=== PATIENT | female | born 1985 | race Hispanic/Latino ===

== ENCOUNTER 2018-06-18 11:08 | Emergency (ER) | payer OTHER ==
[~2018-06-18] VITALS: Ht 157.5 cm; Wt 93.4 kg
--- OUTSIDE RECORDS SUMMARY | 2018-06-18 11:12 | XMS REPORT | Summary of Care ---
Author Author [facility] Organization [facility] Address Unknown Phone Unavailable Encounter HQ Black_uche(FIN) [id number] Date(s): 10/12/17 - 10/12/17 [facility] [address] [place] [address]- Attending Physician: Clinton Redding MD Referring Physician: Clinton Redding MD Vital Signs No data available for this section Problem List No data available for this section Allergies, Adverse Reactions, Alerts Substance Reaction Severity Status NKDA Active Medications No data available for this section Results No data available for this section Immunizations No data available for this section Procedures Procedure Date Related Diagnosis Body Site Status section Completed Tubal ligation Completed Social History Social History Type Response Substance Abuse Use: None. Type: Marijuana. Recreational Drug Route: Inhaled. Sexual Sexually active: Yes. Alcohol Current, Type Beer, Wine, Liquor. Frequency: 1-2 times per week. Smoking Status Current every day smoker; Type: Cigarettes; Previous treatment: None; Ready to change: No; Concerns about tobacco use in household: No; Lives with someone who smokes; Cigarette Smoking Last 365 Days Yes; Reg Smoking Cessation Counseling No entered on: 12/05/17 Assessment and Plan No data available for this section
--- OUTSIDE RECORDS SUMMARY | 2018-06-18 11:12 | XMS REPORT | Summary of Care ---
Author Author [facility] Organization [facility] Address Unknown Phone Unavailable Encounter RAJWINDER Syed(HIGINIO) [id number] Date(s): 11/25/15 - 11/26/15 [facility] [address] [place] [address]- [phone] Discharge Diagnosis: Strain of mid-back Discharge Diagnosis: Hypertension Discharge Disposition: Home or Self Care Attending Physician: Moise Marsh MD Vital Signs Most recent to 1 2 oldest [Reference Range]: Height 154.94 cm (11/25/15 8:42 PM) Temperature Oral 98.0 DegF 99 DegF [96.4-99.1 DegF] (11/25/15 11:20 PM) (11/25/15 8:42 PM) Blood Pressure 129/79 mmHg 142/91 mmHg [90-140/60-90 mmHg] (11/25/15 11:20 PM) *HI* (11/25/15 8:42 PM) Respiratory Rate 18 BRMIN 20 BRMIN [14-20 BRMIN] (11/25/15 11:20 PM) (11/25/15 8:42 PM) Peripheral Pulse 90 bpm 117 bpm Rate [60-100 bpm] (11/25/15 11:20 PM) *HI* (11/25/15 8:42 PM) Weight 96.818 kg (11/25/15 8:42 PM) Body Mass Index 40.33 m2 (11/25/15 8:42 PM) Problem List No data available for this section Allergies, Adverse Reactions, Alerts Substance Reaction Severity Status NKDA Active Medications Flexeril 5 mg oral tablet 5 mg=1 tab, PO, TID, do not take while using etoh do not take while breast feed ing medication may make you feel dizzy, X 7 day, # 21 tab, 0 Refill(s) Start Date: 11/25/15 Stop Date: 12/02/15 Status: Ordered ketOROLAC 30 mg, 1 mL, Route: IM, Drug form: INJ, ONCE, Dosing Weight 96.818, kg, Priority : STAT, Start date: 11/25/15 21:42:00 CDT, Stop date: 11/25/15 21:42:00 CDT Notes: (Same as:Toradol) IV bolus must be given >15 seconds. Give IM administration slowly and deeply into the muscle.Not for use > 4 days MEDICATION WASTE Product Size: 30 mgProduct Wasted: ___ mg Start Date: 11/25/15 Stop Date: 11/25/15 Status: Completed Naprosyn 500 mg oral tablet 500 mg=1 tab, PO, BID, PRN Pain, do not take while breast feeding with food, X 7 day, # 14 tab, 0 Refill(s) Start Date: 11/25/15 Stop Date: 12/02/15 Status: Ordered tramadol 50 mg oral tablet 50 mg=1 tab, PO, Q6H, PRN Pain, take for breakthrough pain do not take while br east feeding do not mix with etoh medication may make you feel dizzy not to e xceed 400 mg/day, X 10 day, # 15 tab, 0 Refill(s) Start Date: 11/25/15 Stop Date: 12/05/15 Status: Ordered Tylenol 650 mg, 2 tab, Route: PO, Drug form: TAB, ONCE, Dosing Weight 96.818, kg, Priori ty: STAT, Start date: 11/25/15 21:43:00 CDT, Stop date: 11/25/15 21:43:00 CDT Notes: Do not exceed 4 gm/day. (Same as: Tylenol) Start Date: 11/25/15 Stop Date: 11/25/15 Status: Completed Valium 5 mg, 1 tab, Route: PO, Drug form: TAB, ONCE, Dosing Weight 96.818, kg, Priority : STAT, Start date: 11/25/15 21:42:00 CDT, Stop date: 11/25/15 21:42:00 CDT Notes: (Same as: Valium) Start Date: 11/25/15 Stop Date: 11/25/15 Status: Completed Results URINE CHEM Most recent to 1 oldest [Reference Range]: U Preg [Negative] Negative (11/25/15 10:05 PM) Immunizations No data available for this section Procedures Procedure Date Related Diagnosis Body Site Tubal ligation Social History Social History Type Response Smoking Status Never smoker; Previous treatment: None; Ready to change: No; Concerns about tobacco use in household: No; Exposure to Tobacco Smoke None; Cigarette Smoking Last 365 Days No; Reg Smoking Cessation Counseling No Assessment and Plan No data available for this section
--- OUTSIDE RECORDS SUMMARY | 2018-06-18 11:12 | XMS REPORT | Summary of Care ---
Author Author [facility] Organization [facility] Address Unknown Phone Unavailable Encounter HQ Yahaira(HIGINIO) [id number] Date(s): 12/05/16 - 12/05/16 [facility] [address] [place] [address]- [phone] Discharge Diagnosis: Hemorrhagic ovarian cyst Discharge Disposition: Home or Self Care Attending Physician: Flaquito Alvarez MD Vital Signs 1 2 3 Most recent to oldest [Reference Range]: 154.94 cm (12/05/16 11:02 AM) Height 98.1 DegF (12/05/16 11:02 AM) Temperature Oral [96.4-99.1 DegF] 133/78 mmHg (12/05/16 2:20 PM) 129/79 mmHg (12/05/16 11:02 AM) Blood Pressure [90-140/60-90 mmHg] 18 BRMIN (12/05/16 2:20 PM) 18 BRMIN (12/05/16 1:54 PM) 16 BRMIN (12/05/16 11:02 AM) Respiratory Rate [14-20 BRMIN] 85 bpm (12/05/16 2:20 PM) 58 bpm *LOW* (12/05/16 11:02 AM) Peripheral Pulse Rate [60-100 bpm] 94.091 kg (12/05/16 11:02 AM) Weight 39.19 m2 (12/05/16 11:02 AM) Body Mass Index Problem List No data available for this section Allergies, Adverse Reactions, Alerts Substance Reaction Severity Status NKDA Active Medications Anaprox-DS 550 mg oral tablet 550 mg=1 tab, PO, BID, PRN for pain, X 10 day, # 20 tab, 0 Refill(s) Start Date: 12/05/16 Stop Date: 12/15/16 Status: Ordered ketOROLAC 30 mg, 1 mL, Route: IVP, Drug form: INJ, ONCE, Dosing Weight 94.091, kg, Priorit y: STAT, Start date: 12/05/16 12:12:00 CDT, Stop date: 12/05/16 12:12:00 CDT Notes: (Same as:Toradol) IV bolus must be given >15 seconds. Give IM administration slowly and deeply into the muscle.Not for use > 4 days MEDICATION WASTE Product Size: 30 mgProduct Wasted: ___ mg Start Date: 12/05/16 Stop Date: 12/05/16 Status: Completed Saline Flush 0.9% 10 mL, Route: IVP, Drug Form: INJ, Dosing Weight 94.091, kg, PRN, PRN Line Flush , Start date: 12/05/16 11:22:00 CDT, Duration: 30 day, Stop date: 01/04/17 10:21 :00 COMMISSIONING ENGINEER Notes: (Same as: BD Posiflush) Start Date: 12/05/16 Stop Date: 12/05/16 Status: Discontinued Results ELECTROLYTES Most recent to 1 oldest [Reference Range]: Sodium Lvl [135-145 137 mEq/L mEq/L] (12/05/16 11:48 AM) Potassium Lvl 4.1 mEq/L [3.5-5.1 mEq/L] (12/05/16 11:48 AM) Chloride Lvl [95-109 105 mEq/L mEq/L] (12/05/16 11:48 AM) CO2 [24-32 mEq/L] 28 mEq/L (12/05/16 11:48 AM) AGAP [10.0-20.0 8.1 mEq/L mEq/L] *LOW* (12/05/16 11:48 AM) CHEM PANEL Most recent to 1 oldest [Reference Range]: Creatinine Lvl 0.57 mg/dL [0.50-1.40 mg/dL] (12/05/16 11:48 AM) eGFR 124 mL/min/1.73m2 1 *NA* (12/05/16 11:48 AM) BUN [7-22 mg/dL] 8 mg/dL (12/05/16 11:48 AM) B/C Ratio [6-25] 14 (12/05/16 11:48 AM) Glucose Lvl [70-99 93 mg/dL mg/dL] (12/05/16 11:48 AM) Total Protein 7.2 g/dL [6.4-8.4 g/dL] (12/05/16 11:48 AM) Albumin Lvl [3.5-5.0 3.6 g/dL g/dL] (12/05/16 1148 AM) Globulin [2.7-4.2 3.6 g/dL g/dL] (12/05/1648 AM) A/G Ratio [0.7-1.6] 1.0 (12/05/16:48 AM) Calcium Lvl 8.5 mg/dL [8.5-10.5 mg/dL] (12/05/16:48 AM) ALT [0-65 unit/L] 23 unit/L (12/05/1648 AM) AST [0-37 unit/L] 10 unit/L (12/05/16:48 AM) Alk Phos [39-136 57 unit/L unit/L] (12/05/1648 AM) Bili Total [0.2-1.3 0.6 mg/dL mg/dL] (12/05/16 11:48 AM) Lipase Lvl [73-393 103 unit/L unit/L] (12/05/16 11:48 AM) 1Result Comment: The eGFR is calculated using the CKD-EPI formula. In most young, healthy individuals the eGFR will be >90 mL/min/1.73m2. The eGFR declines with age. An eGFR of 60-89 may be normal in some populations, particularly the elderly, for whom the CKD-EPI formula has not been extensively validated. Use of the eGFR is not recommended in the following populations: Individuals with unstable creatinine concentrations, including patients and those with serious co-morbid conditions. Patients with extremes in muscle mass or diet. The data above are obtained from the National Kidney Disease Education Program ( NKDEP) which additionally recommends that when the eGFR is used in patients with extremes of body mass index for purposes of drug dosing, the eGFR should be mul tiplied by the estimated BMI. URINE CHEM Most recent to 1 oldest [Reference Range]: U Preg [Negative] Negative (12/05/16 11:48 AM) URINE AND STOOL Most recent to 1 oldest [Reference Range]: UA Turbidity [Clear] Clear (12/05/16 11:48 AM) UA Color [Yellow] Yellow *NA* (12/05/16 11:48 AM) UA pH [5.0-8.0] 6.0 (12/05/16 11:48 AM) UA Spec Grav 1.025 [<=1.030] (12/05/16 11:48 AM) UA Glucose Negative [Negative] (12/05/16 11:48 AM) UA Blood [Negative] Small *ABN* (12/05/16 11:48 AM) UA Ketones Negative [Negative] *NA* (12/05/16 11:48 AM) UA Protein Negative [Negative] (12/05/16 11:48 AM) UA Urobilinogen 0.2 EU/dL [0.1-1.0 EU/dL] (12/05/16 11:48 AM) UA Bili [Negative] Negative *NA* (12/05/16 11:48 AM) UA Leuk Est Negative [Negative] (12/05/16 11:48 AM) UA Nitrite Negative [Negative] (12/05/16 11:48 AM) UA WBC [None Seen 0-2 /HPF /HPF] (12/05/16 11:48 AM) UA RBC [0-2 /HPF] 3-5 /HPF *ABN* (12/05/16 11:48 AM) UA Bacteria Rare *NA* (12/05/16 11:48 AM) UA Sq Epi [Few /LPF] Few /LPF (12/05/16 11:48 AM) HEMATOLOGY Most recent to 1 oldest [Reference Range]: WBC [3.7-10.4 K/CMM] 11.1 K/CMM *HI* (12/05/16 11:48 AM) RBC [4.20-5.40 4.23 M/CMM M/CMM] (12/05/16 11:48 AM) Hgb [12.0-16.0 g/dL] 13.1 g/dL (12/05/16 11:48 AM) Hct [36.0-48.0 %] 38.3 % (12/05/16 11:48 AM) MCV [80.0-98.0 fL] 90.6 fL (12/05/16 11:48 AM) MCH [27.0-31.0 pg] 31.0 pg (12/05/16 11:48 AM) MCHC [32.0-36.0 34.3 g/dL g/dL] (12/05/16 11:48 AM) RDW [11.5-14.5 %] 13.6 % (12/05/16 11:48 AM) Platelet [133-450 354 K/CMM K/CMM] (12/05/16 11:48 AM) MPV [7.4-10.4 fL] 7.2 fL *LOW* (12/05/16 11:48 AM) Segs [45.0-75.0 %] 68.5 % (12/05/16 11:48 AM) Lymphocytes 23.3 % [20.0-40.0 %] (12/05/16 11:48 AM) Monocytes [2.0-12.0 5.8 % %] (12/05/16 11:48 AM) Eosinophils [0.0-4.0 2.1 % %] (12/05/16 11:48 AM) Basophils [0.0-1.0 0.3 % %] (12/05/16 11:48 AM) Segs-Bands # 7.6 K/CMM [1.5-8.1 K/CMM] (12/05/16 11:48 AM) Lymphocytes # 2.6 K/CMM [1.0-5.5 K/CMM] (12/05/16 11:48 AM) Monocytes # [0.0-0.8 0.6 K/CMM K/CMM] (12/05/16 11:48 AM) Eosinophils # 0.2 K/CMM [0.0-0.5 K/CMM] (12/05/16 11:48 AM) Immunizations No data available for this section [...]
--- OUTSIDE RECORDS SUMMARY | 2018-06-18 11:12 | XMS REPORT | Summary of Care ---
Author Author [facility] Organization [facility] Address Unknown Phone Unavailable Encounter HQ Adrianr_uche(FIN) [id number] Date(s): 05/30/17 - 05/30/17 [facility] [address] [place] [address]- [facility] [phone] Encounter Diagnosis Food poisoning (Discharge Diagnosis) - 05/30/17 Abdominal pain, acute (Discharge Diagnosis) - 05/30/17 Discharge Disposition: Home or Self Care Attending Physician: Carlos Rice MD Vital Signs 1 2 3 Most recent to oldest [Reference Range]: 154.94 cm (05/30/17 8:46 AM) Height 98.8 DegF (05/30/17 11:12 AM) 99.5 DegF *HI* (05/30/17 8:46 AM) Temperature Oral [96.4-99.1 DegF] 122/78 mmHg (05/30/17 11:12 AM) 118/71 mmHg (05/30/17 9:40 AM) 116/82 mmHg (05/30/17 8:46 AM) Blood Pressure [90-140/60-90 mmHg] 18 BRMIN (05/30/17 11:12 AM) 18 BRMIN (05/30/17 9:40 AM) 16 BRMIN (05/30/17 8:46 AM) Respiratory Rate [14-20 BRMIN] 92 bpm (05/30/17 11:12 AM) 102 bpm *HI* (05/30/17 9:40 AM) 107 bpm *HI* (05/30/17 8:46 AM) Peripheral Pulse Rate [60-100 bpm] 91.364 kg (05/30/17 8:46 AM) Weight 38.06 m2 (05/30/17 8:46 AM) Body Mass Index Problem List No data available for this section Allergies, Adverse Reactions, Alerts Substance Reaction Severity Status NKDA Active Medications Cipro 500 mg oral tablet 500 mg=1 tab, PO, Q12H, X 10 day, # 20 tab, 0 Refill(s) Start Date: 05/30/17 Stop Date: 06/09/17 Status: Ordered Flagyl 500 mg oral tablet 500 mg=1 tab, PO, Q8H, X 10 day, # 30 tab, 0 Refill(s) Start Date: 05/30/17 Stop Date: 06/09/17 Status: Ordered ketOROLAC 30 mg, 1 mL, Route: IVP, Drug form: INJ, ONCE, Dosing Weight 91.364, kg, Priorit y: STAT, Start date: 05/30/17 8:57:00 CDT, Stop date: 05/30/17 8:57:00 CDT Notes: (Same as:Toradol) IV bolus must be given >15 seconds. Give IM administration slowly and deeply into the muscle.Not for use > 4 days MEDICATION WASTE Product Size: 30 mgProduct Wasted: ___ mg Start Date: 05/30/17 Stop Date: 05/30/17 Status: Completed ondansetron 4 mg, 2 mL, Route: IVP, Drug form: INJ, ONCE, Dosing Weight 91.364, kg, Priority : STAT, Start date: 05/30/17 8:57:00 CDT, Stop date: 05/30/17 8:57:00 CDT Notes: (Same as: Zofran) MEDICATION WASTE Product Size: 4 mgProduct Was yonas: ___ mg Start Date: 05/30/17 Stop Date: 05/30/17 Status: Completed Phenergan 25 mg oral tablet 25 mg=1 tab, PO, Q6H, PRN Nausea, # 15 tab, 0 Refill(s) Start Date: 05/30/17 Stop Date: 06/03/17 Status: Ordered Reglan 5 mg, Route: IVP, Drug form: INJ, ONCE, Dosing Weight 91.364, kg, Priority: STAT , Start date: 05/30/17 10:22:00 CDT, Stop date: 05/30/17 10:22:00 CDT Start Date: 05/30/17 Stop Date: 05/30/17 Status: Completed Sodium Chloride 0.9% (Bolus) IV 1,000 mL, 1000 ml/hr, Infuse Over: 1 hr, Route: IV, 1,000, Drug form: INJ, ONCE, Priority: STAT, Dosing Weight 91.364 kg, Start date: 05/30/17 8:57:00 CDT, Stop date: 05/30/17 8:57:00 CDT Start Date: 05/30/17 Stop Date: 05/30/17 Status: Completed Results ELECTROLYTES Most recent to 1 oldest [Reference Range]: Sodium Lvl [135-145 140 mEq/L mEq/L] (05/30/17 9:13 AM) Potassium Lvl 3.7 mEq/L [3.5-5.1 mEq/L] (05/30/17 9:13 AM) Chloride Lvl [95-109 108 mEq/L mEq/L] (05/30/17 9:13 AM) CO2 [24-32 mEq/L] 25 mEq/L (05/30/17 9:13 AM) AGAP [10.0-20.0 10.7 mEq/L mEq/L] (05/30/17 9:13 AM) CHEM PANEL Most recent to 1 oldest [Reference Range]: Creatinine Lvl 0.70 mg/dL [0.50-1.40 mg/dL] (05/30/17 9:13 AM) eGFR 116 mL/min/1.73m2 1 *NA* (05/30/17 9:13 AM) BUN [7-22 mg/dL] 8 mg/dL (05/30/17 9:13 AM) B/C Ratio [6-25] 11 (05/30/17 9:13 AM) Glucose Lvl [70-99 90 mg/dL mg/dL] (05/30/17 9:13 AM) Total Protein 6.8 g/dL [6.4-8.4 g/dL] (05/30/17 9:13 AM) Albumin Lvl [3.5-5.0 3.4 g/dL g/dL] *LOW* (05/30/17 9:13 AM) Globulin [2.7-4.2 3.4 g/dL g/dL] (05/30/17 9:13 AM) A/G Ratio [0.7-1.6] 1.0 (05/30/17 9:13 AM) Calcium Lvl 7.7 mg/dL [8.5-10.5 mg/dL] *LOW* (05/30/17 9:13 AM) ALT [0-65 unit/L] 16 unit/L (05/30/17 9:13 AM) AST [0-37 unit/L] 8 unit/L (05/30/17 9:13 AM) Alk Phos [39-136 55 unit/L unit/L] (05/30/17 9:13 AM) Bili Total [0.2-1.3 0.6 mg/dL mg/dL] (05/30/17 9:13 AM) Lipase Lvl [73-393 72 unit/L unit/L] *LOW* (05/30/17 9:13 AM) 1Result Comment: The eGFR is calculated [...] be mul tiplied by the estimated BMI. ENDOCRINOLOGY Most recent to 1 oldest [Reference Range]: hCG Tot <1 mIU/mL *NA* (05/30/17 9:13 AM) URINE AND STOOL Most recent to 1 oldest [Reference Range]: UA Turbidity [Clear] Marked *ABN* (05/30/17 9:13 AM) UA Color [Yellow] Yellow *NA* (05/30/17 9:13 AM) UA pH [5.0-8.0] 5.0 (05/30/17 9:13 AM) UA Spec Grav 1.019 [<=1.030] (05/30/17 9:13 AM) UA Glucose [Negative Negative mg/dL mg/dL] *NA* (05/30/17 9:13 AM) UA Blood [Negative] Small *ABN* (05/30/17 9:13 AM) UA Ketones [Negative Negative mg/dL mg/dL] *NA* (05/30/17 9:13 AM) UA Protein [Negative Negative mg/dL mg/dL] (05/30/17 9:13 AM) UA Urobilinogen 2.0 mg/dL [0.1-1.0 mg/dL] *HI* (05/30/17 9:13 AM) UA Bili [Negative] Negative *NA* (05/30/17 9:13 AM) UA Leuk Est Negative [Negative] (05/30/17 9:13 AM) UA Nitrite Negative [Negative] (05/30/17 9:13 AM) UA WBC [0-5 /HPF] 6 /HPF *HI* (05/30/17 9:13 AM) UA RBC [0-2 /HPF] 7 /HPF *HI* (05/30/17 9:13 AM) UA Bacteria [None Occasional /HPF Seen /HPF] *NA* (05/30/17 9:13 AM) UA Sq Epi [Few /LPF] Many /LPF *ABN* (05/30/17 9:13 AM) UA Mucus [None Seen Many /LPF /LPF] *ABN* (05/30/17 9:13 AM) HEMATOLOGY Most recent to 1 oldest [Reference Range]: WBC [3.7-10.4 K/CMM] 8.2 K/CMM (05/30/17 9:13 AM) RBC [4.20-5.40 4.30 M/CMM M/CMM] (05/30/17 9:13 AM) Hgb [12.0-16.0 g/dL] 13.3 g/dL (05/30/17 9:13 AM) Hct [36.0-48.0 %] 38.4 % (05/30/17 9:13 AM) MCV [80.0-98.0 fL] 89.4 fL (05/30/17 9:13 AM) MCH [27.0-31.0 pg] 30.9 pg (05/30/17 9:13 AM) MCHC [32.0-36.0 34.6 g/dL g/dL] (05/30/17 9:13 AM) RDW [11.5-14.5 %] 13.8 % (05/30/17 9:13 AM) MPV [7.4-10.4 fL] 7.0 fL *LOW* (05/30/17 9:13 AM) Platelet [133-450 322 K/CMM K/CMM] (05/30/17 9:13 AM) Segs [45.0-75.0 %] 86.1 % *HI* (05/30/17 9:13 AM) Lymphocytes 8.2 % [20.0-40.0 %] *LOW* (05/30/17 9:13 AM) Monocytes [2.0-12.0 4.8 % %] (05/30/17 9:13 AM) Eosinophils [0.0-4.0 0.7 % %] (05/30/17 9:13 AM) Basophils [0.0-1.0 0.2 % %] (05/30/17 9:13 AM) Segs-Bands # 7.0 K/CMM [1.5-8.1 K/CMM] (05/30/17 9:13 AM) Lymphocytes # 0.7 K/CMM [1.0-5.5 K/CMM] *LOW* (05/30/17 9:13 AM) Monocytes # [0.0-0.8 0.4 K/CMM K/CMM] (05/30/17 9:13 AM) Eosinophils # 0.1 K/CMM [0.0-0.5 K/CMM] (05/30/17 9:13 AM) Immunizations No data available for this section Procedures Procedure Date Related Diagnosis Body Site Status Tubal ligation Completed Social History Social History Type Response Smoking Status Never smoker; Previous treatment: None; Ready to change: No; Concerns about tobacco use in household: No; Exposure to Tobacco Smoke None; Cigarette Smoking Last 365 Days No; Reg Smoking Cessation Counseling No entered on: 05/30/17 Assessment and Plan No data available for this section
--- OUTSIDE RECORDS SUMMARY | 2018-06-18 11:12 | XMS REPORT ---
Author Author Sara Arellano Organization [employer] Address Unknown Phone Unavailable Care Team Providers Care [place] Setter Name Role Phone Sara Arellano CP Unavailable Allergies, Adverse Reactions, Alerts Substance Reaction Event Type N.K.D.A. Info Not Available Non Drug Allergy Problems Problem Type Condition Code Onset Dates Condition Status Problem Obesity, morbid, BMI 40.0-49.9 E66.01 Active Assessment Annual physical exam Z00.00 Active Problem BMI 40.0-44.9, adult Z68.41 Active Assessment BMI 40.0-44.9, adult Z68.41 Active Assessment Obesity, morbid, BMI 40.0-49.9 E66.01 Active Medications No Known Medications Vital Signs Date/Time: August 05, 2017 BMI 40.85 Index Weight 216.2 lbs Height 61 in Temperature 97.2 F Cardiac Monitoring Heart Rate 80 /min Blood Pressure Diastolic 77 mm Hg Blood Pressure Systolic 115 mm Hg Results No Known Results Summary Purpose [employer] Submission
--- OUTSIDE RECORDS SUMMARY | 2018-06-18 11:12 | XMS REPORT | Summary of Care ---
Author Author [facility] Organization [facility] Address Unknown Phone Unavailable Encounter HQ Yahaira(HIGINIO) [id number] Date(s): 08/29/17 - 08/29/17 [facility] [address] [place] [address]- Encounter Diagnosis Vomiting and diarrhea (Discharge Diagnosis) - 08/29/17 Abdominal pain (Discharge Diagnosis) - 08/29/17 Unspecified abdominal pain (Final) - 09/03/17 Diarrhea, unspecified (Final) - Nausea with vomiting, unspecified (Final) - Discharge Disposition: Home or Self Care Attending Physician: Jose E Herbert MD Vital Signs 1 2 3 Most recent to oldest [Reference Range]: 154.94 cm (08/29/17 6:19 PM) Height 98.0 DegF (08/29/17 10:46 PM) 98.6 DegF (08/29/17 6:19 PM) Temperature Oral [96.4-99.1 DegF] 116/76 mmHg (08/29/17 10:46 PM) 124/81 mmHg (08/29/17 8:20 PM) 124/77 mmHg (08/29/17 8:18 PM) Blood Pressure [90-140/60-90 mmHg] 18 BRMIN (08/29/17 10:46 PM) 18 BRMIN (08/29/17 6:19 PM) Respiratory Rate [14-20 BRMIN] 61 bpm (08/29/17 10:46 PM) 69 bpm (08/29/17 8:20 PM) 62 bpm (08/29/17 8:18 PM) Peripheral Pulse Rate [60-100 bpm] 93.636 kg (08/29/17 6:19 PM) Weight 39 m2 (08/29/17 6:19 PM) Body Mass Index Problem List No data available for this section Allergies, Adverse Reactions, Alerts Substance Reaction Severity Status NKDA Active Medications Cipro 500 mg oral tablet 500 mg=1 tab, PO, Q12H, X 5 day, # 10 tab, 0 Refill(s) Start Date: 08/29/17 Stop Date: 09/03/17 Status: Completed Flagyl 500 mg oral tablet 500 mg=1 tab, PO, Q8H, X 5 day, # 15 tab, 0 Refill(s) Start Date: 08/29/17 Stop Date: 09/03/17 Status: Completed potassium chloride 40 mEq, 2 tab, Route: PO, Drug form: ERTAB, ONCE, Dosing Weight 93.636, kg, Prio rity: STAT, Start date: 08/29/17 19:46:00 CDT, Stop date: 08/29/17 19:46:00 CDT Notes: (Same as: K-Dur 20)"Do Not Crush"For patients unable to swallow tablet, d issolve in one half glass of water. Allow about 2 minutes for the tablets to dis integrate. Stir before giving to prepare slurry and administer.Please exclude Pa tients with feeding tube less than 14 [place] (Dobhoff, J-tube etc) and pediat aston and patients. With food and full glass of water Start Date: 08/29/17 Stop Date: 08/29/17 Status: Completed promethazine 12.5 mg, Route: IVPB, ONCE, Dosing Weight 93.636, kg, Priority: STAT, Start date : 08/29/17 19:27:00 CDT, Stop date: 08/29/17 19:27:00 CDT Start Date: 08/29/17 Stop Date: 08/29/17 Status: Completed promethazine 25 mg oral tablet 25 mg=1 tab, PO, Q6H, PRN Nausea/Vomiting, # 12 tab, 0 Refill(s) Start Date: 08/29/17 Stop Date: 09/01/17 Status: Ordered Saline Flush 0.9% 10 mL, Route: IVP, Drug Form: INJ, Dosing Weight 91.364, kg, PRN, PRN Line Flush , Start date: 08/29/17 18:20:00 CDT, Duration: 30 day, Stop date: 09/28/17 18:19 :00 CDT Notes: (Same as: BD Posiflush) Start Date: 08/29/17 Stop Date: 08/29/17 Status: Discontinued Sodium Chloride 0.9% (Bolus) IV 1,000 mL, 1000 ml/hr, Infuse Over: 1 hr, Route: IV, 1,000, Drug form: INJ, ONCE, Priority: STAT, Dosing Weight 93.636 kg, Start date: 08/29/17 19:27:00 CDT, Stop date: 08/29/17 19:27:00 CDT Start Date: 08/29/17 Stop Date: 08/29/17 Status: Completed Sodium Chloride 0.9% (Bolus) IV 1,000 mL, Infuse Over: 1 hr, Route: IV, ONCE, Priority: STAT, Dosing Weight 93.6 36 kg, Start date: 08/29/17 19:27:00 CDT, Stop date: 08/29/17 19:27:00 CDT Start Date: 08/29/17 Stop Date: 08/29/17 Status: Completed Results ELECTROLYTES Most recent to 1 oldest [Reference Range]: Sodium Lvl [135-145 143 mEq/L mEq/L] (08/29/17 6:32 PM) Potassium Lvl 3.1 mEq/L [3.5-5.1 mEq/L] *LOW* (08/29/17 6:32 PM) Chloride Lvl [95-109 108 mEq/L mEq/L] (08/29/17 6:32 PM) CO2 [24-32 mEq/L] 24 mEq/L (08/29/17 6:32 PM) AGAP [10.0-20.0 14.1 mEq/L mEq/L] (08/29/17 6:32 PM) CHEM PANEL Most recent to 1 oldest [Reference Range]: Creatinine Lvl 0.78 mg/dL [0.50-1.40 mg/dL] (08/29/17 6:32 PM) eGFR 101 mL/min/1.73m2 1 *NA* (08/29/17 6:32 PM) BUN [7-22 mg/dL] 7 mg/dL (08/29/17 6:32 PM) Glucose Lvl [70-99 97 mg/dL mg/dL] (08/29/17 6:32 PM) Total Protein 7.1 g/dL [6.4-8.4 g/dL] (08/29/17 6:32 PM) Albumin Lvl [3.5-5.0 3.5 g/dL g/dL] (08/29/17 6:32 PM) Globulin [2.7-4.2 3.6 g/dL g/dL] (08/29/17 6:32 PM) A/G Ratio [0.7-1.6] 1.0 (08/29/17 6:32 PM) Calcium Lvl 8.2 mg/dL [8.5-10.5 mg/dL] *LOW* (08/29/17 6:32 PM) ALT [0-65 unit/L] 79 unit/L *HI* (08/29/17 6:32 PM) AST [0-37 unit/L] 38 unit/L *HI* (08/29/17 6:32 PM) Alk Phos [39-136 65 unit/L unit/L] (08/29/17 6:32 PM) Bili Total [0.2-1.3 0.4 mg/dL mg/dL] (08/29/17 6:32 PM) Bili Direct [0.0-0.3 0.1 mg/dL mg/dL] (08/29/17 6:32 PM) Bili Indirect 0.3 mg/dL [0.0-1.0 mg/dL] (08/29/17 6:32 PM) Lipase Lvl [73-393 129 unit/L unit/L] (08/29/17 6:32 PM) 1Result Comment: The eGFR is calculated using [...] [Reference Range]: hCG Tot <1 mIU/mL *NA* (08/29/17 6:32 PM) URINE AND STOOL Most recent to 1 oldest [Reference Range]: UA Turbidity [Clear] Clear (08/29/17 6:45 PM) UA Color [Yellow] Yellow *NA* (08/29/17 6:45 PM) UA pH [5.0-8.0] 6.0 (08/29/17 6:45 PM) UA Spec Grav 1.025 [<=1.030] (08/29/17 6:45 PM) UA Glucose Negative [Negative] (08/29/17 6:45 PM) UA Blood [Negative] Large *ABN* (08/29/17 6:45 PM) UA Ketones Trace [Negative] *ABN* (08/29/17 6:45 PM) UA Protein [Negative 30 mg/dL mg/dL] *ABN* (08/29/17 6:45 PM) UA Urobilinogen 1.0 EU/dL [0.1-1.0 EU/dL] (08/29/17 6:45 PM) UA Bili [Negative] Small *ABN* (08/29/17 6:45 PM) UA Leuk Est Negative [Negative] (08/29/17 6:45 PM) UA Nitrite Negative [Negative] (08/29/17 6:45 PM) UA WBC [0-5 /HPF] 0-2 /HPF (08/29/17 6:45 PM) UA RBC [0-2 /HPF] 3-5 /HPF *ABN* (08/29/17 6:45 PM) UA Bacteria [None Few /HPF Seen /HPF] (08/29/17 6:45 PM) UA Sq Epi [Few /LPF] Few /LPF (08/29/17 6:45 PM) UA [place] Yeast [None Occasional /HPF Seen /HPF] *ABN* (08/29/17 6:45 PM) HEMATOLOGY Most recent to 1 oldest [Reference Range]: WBC [3.7-10.4 K/CMM] 12.1 K/CMM *HI* (08/29/17 6:32 PM) RBC [4.20-5.40 4.33 M/CMM M/CMM] (08/29/17 6:32 PM) Hgb [12.0-16.0 g/dL] 13.4 g/dL (08/29/17 6:32 PM) Hct [36.0-48.0 %] 38.3 % (08/29/17 6:32 PM) MCV [80.0-98.0 fL] 88.5 fL (08/29/17 6:32 PM) MCH [27.0-31.0 pg] 30.9 pg (08/29/17 6:32 PM) MCHC [32.0-36.0 34.9 g/dL g/dL] (08/29/17 6:32 PM) RDW [11.5-14.5 %] 13.8 % (08/29/17 6:32 PM) MPV [7.4-10.4 fL] 6.8 fL *LOW* (08/29/17 6:32 PM) Platelet [133-450 390 K/CMM K/CMM] (08/29/17 6:32 PM) Segs [45.0-75.0 %] 64.2 % (08/29/17 6:32 PM) Lymphocytes 26.0 % [20.0-40.0 %] (08/29/17 6:32 PM) Monocytes [2.0-12.0 8.2 % %] (08/29/17 6:32 PM) Eosinophils [0.0-4.0 1.2 % %] (08/29/17 6:32 PM) Basophils [0.0-1.0 0.4 % %] (08/29/17 6:32 PM) Neutrophils # 7.8 K/CMM [1.5-8.1 K/CMM] (08/29/17 6:32 PM) Lymphocytes # 3.2 K/CMM [1.0-5.5 K/CMM] (08/29/17 6:32 PM) Monocytes # [0.0-0.8 1.0 K/CMM K/CMM] *HI* (08/29/17 6:32 PM) Eosinophils # 0.1 K/CMM [0.0-0.5 K/CMM] (08/29/17 6:32 PM) Basophils # [0.0-0.2 0.1 K/CMM K/CMM] (08/29/17 6:32 PM) Immunizations No data available for this [...]
--- OUTSIDE RECORDS SUMMARY | 2018-06-18 11:12 | XMS REPORT ---
Author Author Sara Arellano Organization [employer] Address Unknown Phone Unavailable Care Team Providers Care Service Tester Name Role Phone Sara Arellano CP Unavailable Allergies No Known Allergies Problems Problem Type Condition Code Onset Dates Condition Status Problem Obesity, morbid, BMI 40.0-49.9 E66.01 Active Problem BMI 40.0-44.9, adult Z68.41 Active Medications Medication Code System Code Instructions Start Date End Date Status Dosage Ergocalciferol [facility] [id number] UNIT Orally once a week August 07, 2017 September 06, 2017 Active 1 capsule Results No Known Results Summary Purpose [employer] Submission
--- OUTSIDE RECORDS SUMMARY | 2018-06-18 11:12 | XMS REPORT | Summary of Care ---
Author Author [facility] Organization [facility] Address Unknown Phone Unavailable Encounter HQ Yahaira(FIN) [id number] Date(s): 09/02/17 - 09/02/17 [facility] [address] [place] [address]- [facility] [phone] Encounter Diagnosis Chronic diarrhea (Discharge Diagnosis) - 09/02/17 Noninfective gastroenteritis and colitis, unspecified (Final) - 09/05/17 Discharge Disposition: Home or Self Care Attending Physician: Richard Rodriguez MD Vital Signs 1 2 3 Most recent to oldest [Reference Range]: 154.94 cm (09/02/17 7:05 AM) Height 98.4 DegF (09/02/17 11:21 AM) 99.1 DegF (09/02/17 8:18 AM) 97.9 DegF (09/02/17 7:05 AM) Temperature Oral [96.4-99.1 DegF] 114/80 mmHg (09/02/17 11:21 AM) 126/82 mmHg (09/02/17 8:18 AM) 136/85 mmHg (09/02/17 7:05 AM) Blood Pressure [90-140/60-90 mmHg] 17 BRMIN (09/02/17 11:21 AM) 16 BRMIN (09/02/17 8:18 AM) 18 BRMIN (09/02/17 7:05 AM) Respiratory Rate [14-20 BRMIN] 62 bpm (09/02/17 11:21 AM) 60 bpm (09/02/17 8:18 AM) 65 bpm (09/02/17 7:05 AM) Peripheral Pulse Rate [60-100 bpm] 94.545 kg (09/02/17 7:05 AM) Weight 39.38 m2 (09/02/17 7:05 AM) Body Mass Index Problem List No data available for this section Allergies, Adverse Reactions, Alerts Substance Reaction Severity Status NKDA Active Medications acetaminophen-tramadol 325 mg-37.5 mg oral tablet 2 tab, PO, Q6H, PRN Pain, X 7 day, # 24 tab, 0 Refill(s) Start Date: 09/02/17 Stop Date: 09/09/17 Status: Completed Bentyl 20 mg, 2 mL, Route: IM, Drug form: INJ, ONCE, Dosing Weight 94.545, kg, Start da te: 09/02/17 7:15:00 CDT, Stop date: 09/02/17 7:15:00 CDT Notes: (Same as: Bentyl) Start Date: 09/02/17 Stop Date: 09/02/17 Status: Completed Bentyl 20 mg oral tablet 20 mg=1 tab, PO, QID-Before Meals, # 40 tab, 0 Refill(s) Start Date: 09/02/17 Stop Date: 09/12/17 Status: Ordered dexamethasone 10 mg, 1 mL, Route: IVP, Drug form: INJ, ONCE, Dosing Weight 94.545, kg, Priorit y: STAT, Start date: 09/02/17 9:20:00 CDT, Stop date: 09/02/17 9:20:00 CDT Notes: MEDICATION WASTE Product Size: 10 mgProduct Wasted: ___ mg Start Date: 09/02/17 Stop Date: 09/02/17 Status: Completed famotidine 40 mg, 4 mL, Route: IVP, Drug form: INJ, ONCE, Dosing Weight 94.545, kg, Priorit y: STAT, Start date: 09/02/17 7:29:00 CDT, Stop date: 09/02/17 7:29:00 CDT Notes: (Same as: Pepcid)Can be dilute in 5-10cc NS IVP: Slow IV push over at le ast 2 minutes. Start Date: 09/02/17 Stop Date: 09/02/17 Status: Completed GI cocktail 30 mL, Route: PO, Dosing Weight 94.545, kg, ONCE, STAT, Start date: 09/02/17 10: 08:00 CDT, Stop date: 09/02/17 10:08:00 CDT Start Date: 09/02/17 Stop Date: 09/02/17 Status: Completed GI cocktail 30 mL, Route: PO, Drug Form: SUSP, Dosing Weight 94.545, kg, ONCE, STAT, Start d ate: 09/02/17 7:29:00 CDT, Stop date: 09/02/17 7:29:00 CDT Notes: G.I. Cocktail=antacid with simethicone 22.5 mL - lidocaine viscous 7.5 mL Start Date: 09/02/17 Stop Date: 09/02/17 Status: Completed morphine 5 mg/mL preservative-free injectable solution 6 mg, 1.5 mL, Route: IVP, Drug form: SOLN, ONCE, Dosing Weight 94.545, kg, Prior ity: STAT, Start date: 09/02/17 9:20:00 CDT, Stop date: 09/02/17 9:20:00 CDT Notes: (Same as:MORPhine Sulfate) Start Date: 09/02/17 Stop Date: 09/02/17 Status: Completed pantoprazole 40 mg oral enteric coated tablet 40 mg=1 tab, PO, Daily, # 30 tab, 0 Refill(s) Start Date: 09/02/17 Status: Ordered Sodium Chloride 0.9% (Bolus) IV 1,890.9 mL, 1890.9 ml/hr, Infuse Over: 1 hr, Route: IV, 1,890.9, Drug form: INJ, ONCE, Priority: STAT, Dosing Weight 94.545 kg, Start date: 09/02/17 7:15:00 CDT, Stop date: 09/02/17 7:15:00 CDT Start Date: 09/02/17 Stop Date: 09/02/17 Status: Completed Results ELECTROLYTES Most recent to 1 oldest [Reference Range]: Sodium Lvl [135-145 141 mEq/L mEq/L] (09/02/17 7:33 AM) Potassium Lvl 3.9 mEq/L [3.5-5.1 mEq/L] (09/02/17 7:33 AM) Chloride Lvl [95-109 109 mEq/L mEq/L] (09/02/17 7:33 AM) CO2 [24-32 mEq/L] 22 mEq/L *LOW* (09/02/17 7:33 AM) AGAP [10.0-20.0 13.9 mEq/L mEq/L] (09/02/17 7:33 AM) CHEM PANEL Most recent to 1 oldest [Reference Range]: Creatinine Lvl 0.67 mg/dL [0.50-1.40 mg/dL] (09/02/17 7:33 AM) eGFR 117 mL/min/1.73m2 1 *NA* (09/02/17 7:33 AM) BUN [7-22 mg/dL] 7 mg/dL (09/02/17 7:33 AM) B/C Ratio [6-25] 10 (09/02/17 7:33 AM) Glucose Lvl [70-99 96 mg/dL mg/dL] (09/02/17 7:33 AM) Total Protein 7.7 g/dL [6.4-8.4 g/dL] (09/02/17 7:33 AM) Albumin Lvl [3.5-5.0 3.8 g/dL g/dL] (09/02/17 7:33 AM) Globulin [2.7-4.2 3.9 g/dL g/dL] (09/02/17 7:33 AM) A/G Ratio [0.7-1.6] 1.0 (09/02/17 7:33 AM) Calcium Lvl 8.6 mg/dL [8.5-10.5 mg/dL] (09/02/17 7:33 AM) ALT [0-65 unit/L] 81 unit/L *HI* (09/02/17 7:33 AM) AST [0-37 unit/L] 40 unit/L *HI* (09/02/17 7:33 AM) Alk Phos [39-136 71 unit/L unit/L] (09/02/17 7:33 AM) Bili Total [0.2-1.3 0.3 mg/dL mg/dL] (09/02/17 7:33 AM) Lipase Lvl [73-393 113 unit/L unit/L] (09/02/17 7:33 AM) 1Result Comment: The eGFR is calculated [...] be mul tiplied by the estimated BMI. DRUG SCREEN Most recent to 1 oldest [Reference Range]: U Amph Scr Negative [Negative] *NA* (09/02/17 8:15 AM) U Maria Dolores Scr Negative [Negative] *NA* (09/02/17 8:15 AM) U Benzodiaz Scr Negative [Negative] *NA* (09/02/17 8:15 AM) U Cannab Scr Positive [Negative] *ABN* (09/02/17 8:15 AM) U Cocaine Scr Negative [Negative] *NA* (09/02/17 8:15 AM) U Opiate Scr Negative [Negative] *NA* (09/02/17 8:15 AM) U Phencyclidine Scr Negative [Negative] *NA* (09/02/17 8:15 AM) UDS Note See Note (09/02/17 8:15 AM) ENDOCRINOLOGY Most recent to 1 oldest [Reference Range]: S Preg [Negative] Negative *NA* (09/02/17 7:33 AM) URINE AND STOOL Most recent to 1 oldest [Reference Range]: UA Turbidity [Clear] Clear (09/02/17 8:15 AM) UA Color [Yellow] Yellow *NA* (09/02/17 8:15 AM) UA pH [5.0-8.0] 6.0 (09/02/17 8:15 AM) UA Spec Grav 1.013 [<=1.030] (09/02/17 8:15 AM) UA Glucose [Negative Negative mg/dL mg/dL] *NA* (09/02/17 8:15 AM) UA Blood [Negative] Moderate *ABN* (09/02/17 8:15 AM) UA Ketones [Negative Negative mg/dL mg/dL] *NA* (09/02/17 8:15 AM) UA Protein [Negative Negative mg/dL mg/dL] (09/02/17 8:15 AM) UA Urobilinogen <=1.0 mg/dL [0.1-1.0 mg/dL] *NA* (09/02/17 8:15 AM) UA Bili [Negative] Negative *NA* (09/02/17 8:15 AM) UA Leuk Est Negative [Negative] (09/02/17 8:15 AM) UA Nitrite Negative [Negative] (09/02/17 8:15 AM) UA WBC [0-5 /HPF] 3 /HPF (09/02/17 8:15 AM) UA RBC [0-2 /HPF] 8 /HPF *HI* (09/02/17 8:15 AM) UA Bacteria [None Occasional /HPF Seen /HPF] *NA* (09/02/17 8:15 AM) UA Sq Epi [Few /LPF] Few /LPF *NA* (09/02/17 8:15 AM) UA Mucus [None Seen Few /LPF /LPF] *NA* (09/02/17 8:15 AM) Micro? Performed *NA* (09/02/17 8:15 AM) Occult Bld Stl Positive [Negative] *ABN* (09/02/17 9:38 AM) HEMATOLOGY Most recent to 1 oldest [Reference Range]: WBC [3.7-10.4 K/CMM] 11.7 K/CMM *HI* (09/02/17 7:33 AM) RBC [4.20-5.40 4.73 M/CMM M/CMM] (09/02/17 7:33 AM) Hgb [12.0-16.0 g/dL] 14.3 g/dL (09/02/17 7:33 AM) Hct [36.0-48.0 %] 41.1 % (09/02/17 7:33 AM) MCV [80.0-98.0 fL] 86.9 fL (09/02/17 7:33 AM) MCH [27.0-31.0 pg] 30.3 pg (09/02/17 7:33 AM) MCHC [32.0-36.0 34.8 g/dL g/dL] (09/02/17 7:33 AM) RDW [11.5-14.5 %] 14.1 % (09/02/17 7:33 AM) MPV [7.4-10.4 fL] 6.9 fL *LOW* (09/02/17 7:33 AM) Platelet [133-450 407 K/CMM K/CMM] (09/02/17 7:33 AM) Segs [45.0-75.0 %] 69.2 % (09/02/17 7:33 AM) Lymphocytes 21.6 % [20.0-40.0 %] (09/02/17 7:33 AM) Monocytes [2.0-12.0 7.0 % %] (09/02/17 7:33 AM) Eosinophils [0.0-4.0 1.5 % %] (09/02/17 7:33 AM) Basophils [0.0-1.0 0.7 % %] (09/02/17 7:33 AM) Neutrophils # 8.1 K/CMM [1.5-8.1 K/CMM] (09/02/17 7:33 AM) Lymphocytes # 2.5 K/CMM [1.0-5.5 K/CMM] (09/02/17 7:33 AM) Monocytes # [0.0-0.8 0.8 K/CMM K/CMM] (09/02/17 7:33 AM) Eosinophils # 0.2 K/CMM [0.0-0.5 K/CMM] (09/02/17 7:33 AM) Basophils # [0.0-0.2 0.1 K/CMM K/CMM] (09/02/17 7:33 AM) PT [12.0-14.7 12.3 seconds seconds] (09/02/17 7:33 AM) INR [0.85-1.17] 0.91 (09/02/17 7:33 AM) PTT [22.9-35.8 30.5 seconds seconds] (09/02/17 7:33 AM) MOLECULAR DIAGNOSTIC Most recent to 1 oldest [Reference Range]: C difficile DNA Negative [Negative] (09/02/17 9:38 AM) Microbiology Reports TEST: Culture: Stool STATUS: Auth (Verified) BODY SITE: SOURCE: Stool COLLECTED DATE/TIME: 09/02/17 9:38 AM FINAL REPORT Normal Enteric Melyssa Isolated No Salmonella, Shigella, Or Campylobacter Isolated Immunizations No data available for this section [...]
--- OUTSIDE RECORDS SUMMARY | 2018-06-18 11:12 | XMS REPORT | Continuity of Care Document ---
Author Author [facility] Organization Interface Address Unknown Phone Unavailable Problems Problem Status Onset Date Classification Date Reported Comments Source FEVER Active 12/05/2017 [facility] Other specified diseases of intestine 11/29/2017 06/14/2018 [facility] Epiploic appendagitis 11/25/2017 06/14/2018 [facility] ABD PAIN/NAUSEA Active 11/25/2017 [facility] R19.7=DIARRHEA, UNSPECIFIED/R10.11=RIGHT Active 10/09/2017 [facility] Noninfective gastroenteritis and colitis, unspecified 09/06/2017 03/22/2018 [facility] Unspecified abdominal pain 09/04/2017 03/18/2018 [facility] Chronic diarrhea 09/02/2017 03/22/2018 [facility] ABDOMINAL PAIN Active 09/02/2017 [facility] Vomiting and diarrhea 08/29/2017 03/18/2018 [facility] Abdominal pain 08/29/2017 03/18/2018 [facility] DIARRHEA Active 08/29/2017 [facility] Food poisoning 05/30/2017 06/02/2017 [facility] Abdominal pain, acute 05/30/2017 06/02/2017 [facility] VOMITING Active 05/30/2017 [facility] Discharge Diagnosis: Hemorrhagic ovarian cyst 12/05/2016 12/08/2016 [facility] Discharge Diagnosis: Strain of mid-back 11/25/2015 11/29/2015 [facility] Discharge Diagnosis: Hypertension 11/25/2015 11/29/2015 [facility] BACK PAIN Active 11/25/2015 [facility] Diarrhea, unspecified 03/18/2018 [facility] Nausea with vomiting, unspecified 03/18/2018 [facility] Nicotine dependence, cigarettes, uncomplicated 06/14/2018 [facility] 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 06/14/2018 [facility] Tubal ligation status 06/14/2018 [facility] Obesity, morbid, BMI 40.0-49.9 Active Problem 08/08/2017 [facility] Medications Medication Details Route Status Patient Instructions Ordering Provider Order Date Source naproxen 500 mg oral tablet 500 mg=1 tab, PO, Q12H, PRN Pain, X 10 day, # 20 tab, 0 Refill(s) No Longer Active 11/25/2017 [facility] ketOROLAC 30 mg/mL injectable solution 30 mg, Route: IVP, Drug form: INJ, ONCE, Dosing Weight 93.182, kg, Priority: STAT, Start date: 11/25/17 11:57:00 CDT, Stop date: 11/25/17 11:57:00 CDT Inactive 11/25/2017 [facility] Morphine 4 mg, 1 mL, Route: IVP, Drug form: SOLN, ONCE, Dosing Weight 94.545, kg, Priority: STAT, Start date: 11/25/17 8:38:00 CDT, Stop date: 11/25/17 8:38:00 CDTNotes: (Same as:MORPhine Sulfate) Inactive 11/25/2017 [facility] Ondansetron 4 mg, 2 mL, Route: IVP, Drug form: INJ, ONCE, Dosing Weight 94.545, kg, Priority: STAT, Start date: 11/25/17 8:37:00 CDT, Stop date: 11/25/17 8:37:00 CDTNotes: (Same as: Zofran) MEDICATION WASTE * Product Size: 4 mg Product Wasted: ___ mg Inactive 11/25/2017 [facility] Sodium Chloride 0.9% (Bolus) IV 1,000 mL, 1000 ml/hr, Infuse Over: 1 hr, Route: IV, 1,000, Drug form: INJ, ONCE, Priority: STAT, Dosing Weight 94.545 kg, Start date: 11/25/17 8:37:00 CDT, Stop date: 11/25/17 8:37:00 CDT Inactive 11/25/2017 [facility] Saline Flush 0.9% 10 mL, Route: IVP, Drug Form: INJ, Dosing Weight 94.545, kg, PRN, PRN Line Flush, Start date: 11/25/17 8:37:00 CDT, Duration: 30 day, Stop date: 12/25/17 7:36:00 CSTNotes: (Same as: BD Posiflush) Inactive 11/25/2017 [facility] Acetaminophen 325 MG / tramadol hydrochloride 37.5 MG Oral Tablet 2 tab, PO, Q6H, PRN Pain, X 7 day, # 24 tab, 0 Refill(s) No Longer Active 09/02/2017 [facility] Dicyclomine Hydrochloride 20 MG Oral Tablet [Bentyl] 20 mg=1 tab, PO, QID-Before Meals, # 40 tab, 0 Refill(s) Active 09/02/2017 [facility] pantoprazole 40 mg oral enteric coated tablet 40 mg=1 tab, PO, Daily, # 30 tab, 0 Refill(s) Active 09/02/2017 [facility] GI cocktail 30 mL, Route: PO, Dosing Weight 94.545, kg, ONCE, STAT, Start date: 09/02/17 10:08:00 CDT, Stop date: 09/02/17 10:08:00 CDT Inactive 09/02/2017 [facility] Dexamethasone 10 mg, 1 mL, Route: IVP, Drug form: INJ, ONCE, Dosing Weight 94.545, kg, Priority: STAT, Start date: 09/02/17 9:20:00 CDT, Stop date: 09/02/17 9:20:00 CDTNotes: MEDICATION WASTE Product Size: 10 mg Product Wasted: ___ mg Inactive 09/02/2017 [facility] 30 ML Morphine Sulfate 5 MG/ML Injection 6 mg, 1.5 mL, Route: IVP, Drug form: SOLN, ONCE, Dosing Weight 94.545, kg, Priority: STAT, Start date: 09/02/17 9:20:00 CDT, Stop date: 09/02/17 9:20:00 CDTNotes: (Same as:MORPhine Sulfate) Inactive 09/02/2017 [facility] GI cocktail 30 mL, Route: PO, Drug Form: SUSP, Dosing Weight 94.545, kg, ONCE, STAT, Start date: 09/02/17 7:29:00 CDT, Stop date: 09/02/17 7:29:00 CDTNotes: G.I. Cocktail=antacid with simethicone 22.5 mL - lidocaine viscous 7.5 mL Inactive 09/02/2017 [facility] Famotidine 40 mg, 4 mL, Route: IVP, Drug form: INJ, ONCE, Dosing Weight 94.545, kg, Priority: STAT, Start date: 09/02/17 7:29:00 CDT, Stop date: 09/02/17 7:29:00 CDTNotes: (Same as: Pepcid) Can be dilute in 5-10cc NS IVP: Slow IV push over at least 2 minutes. Inactive 09/02/2017 [place] Bentyl 20 mg, 2 mL, Route: IM, Drug form: INJ, ONCE, Dosing Weight 94.545, kg, Start date: 09/02/17 7:15:00 CDT, Stop date: 09/02/17 7:15:00 CDTNotes: (Same as: Bentyl) Inactive 09/02/2017 [facility] Sodium Chloride 0.9% (Bolus) IV 1,890.9 mL, 1890.9 ml/hr, Infuse Over: 1 hr, Route: IV, 1,890.9, Drug form: INJ, ONCE, Priority: STAT, Dosing Weight 94.545 kg, Start date: 09/02/17 7:15:00 CDT, Stop date: 09/02/17 7:15:00 CDT Inactive 09/02/2017 [facility] Promethazine Hydrochloride 25 MG Oral Tablet 25 mg=1 tab, PO, Q6H, PRN Nausea/Vomiting, # 12 tab, 0 Refill(s) Active 08/30/2017 [facility] Metronidazole 500 MG Oral Tablet [Flagyl] 500 mg=1 tab, PO, Q8H, X 5 day, # 15 tab, 0 Refill(s) No Longer Active 08/30/2017 [facility] Ciprofloxacin 500 MG Oral Tablet [Cipro] 500 mg=1 tab, PO, Q12H, X 5 day, # 10 tab, 0 Refill(s) No Longer Active 08/30/2017 [facility] Potassium Chloride 40 mEq, 2 tab, Route: PO, Drug form: ERTAB, ONCE, Dosing Weight 93.636, kg, Priority: STAT, Start date: 08/29/17 19:46:00 CDT, Stop date: 08/29/17 19:46:00 CDTNotes: (Same as: K-Dur 20) "Do Not Crush" For patients unable to swallow tablet, dissolve in one half glass of water. Allow about 2 minutes for the tablets to disintegrate. Stir before giving to prepare slurry and administer. Please exclude Patients with feeding tube less than 14 Icelandic (Dobhoff, J-tube etc) and pediatric and patients. With food and full glass of water Inactive 08/30/2017 [facility] Sodium Chloride 0.9% (Bolus) IV 1,000 mL, 1000 ml/hr, Infuse Over: 1 hr, Route: IV, 1,000, Drug form: INJ, ONCE, Priority: STAT, Dosing Weight 93.636 kg, Start date: 08/29/17 19:27:00 CDT, Stop date: 08/29/17 19:27:00 CDT Inactive 08/30/2017 [facility] Promethazine 12.5 mg, Route: IVPB, ONCE, Dosing Weight 93.636, kg, Priority: STAT, Start date: 08/29/17 19:27:00 CDT, Stop date: 08/29/17 19:27:00 CDT Inactive 08/30/2017 [facility] Saline Flush 0.9% 10 mL, Route: IVP, Drug Form: INJ, Dosing Weight 91.364, kg, PRN, PRN Line Flush, Start date: 08/29/17 18:20:00 CDT, Duration: 30 day, Stop date: 09/28/17 18:19:00 CDTNotes: (Same as: BD Posiflush) Inactive 08/29/2017 [facility] Ergocalciferol 1 capsule Orally Active [id number] UNIT Orally once a week Adan 08/07/2017 [facility] Metronidazole 500 MG Oral Tablet [Flagyl] 500 mg=1 tab, PO, Q8H, X 10 day, # 30 tab, 0 Refill(s) Active 05/30/2017 [facility] Ciprofloxacin 500 MG Oral Tablet [Cipro] 500 mg=1 tab, PO, Q12H, X 10 day, # 20 tab, 0 Refill(s) Active 05/30/2017 [facility] Phenergan 25 mg oral tablet 25 mg=1 tab, PO, Q6H, PRN Nausea, # 15 tab, 0 Refill(s) Active 05/30/2017 [facility] Reglan 5 mg, Route: IVP, Drug form: INJ, ONCE, Dosing Weight 91.364, kg, Priority: STAT, Start date: 05/30/17 10:22:00 CDT, Stop date: 05/30/17 10:22:00 CDT Inactive 05/30/2017 [facility] Ketorolac 30 mg, 1 mL, Route: IVP, Drug form: INJ, ONCE, Dosing Weight 91.364, kg, Priority: STAT, Start date: 05/30/17 8:57:00 CDT, Stop date: 05/30/17 8:57:00 CDTNotes: (Same as:Toradol) IV bolus must be given > 15 seconds. Give IM administration slowly and deeply into the muscle. Not for use > 4 days MEDICATION WASTE Product Size: 30 mg Product Wasted: ___ mg Inactive 05/30/2017 [facility] Sodium Chloride 0.9% (Bolus) IV 1,000 mL, 1000 ml/hr, Infuse Over: 1 hr, Route: IV, 1,000, Drug form: INJ, ONCE, Priority: STAT, Dosing Weight 91.364 kg, Start date: 05/30/17 8:57:00 CDT, Stop date: 05/30/17 8:57:00 CDT Inactive 05/30/2017 [facility] Ondansetron 4 mg, 2 mL, Route: IVP, Drug form: INJ, ONCE, Dosing Weight 91.364, kg, Priority: STAT, Start date: 05/30/17 8:57:00 CDT, Stop date: 05/30/17 8:57:00 CDTNotes: (Same as: Zofran) MEDICATION WASTE * Product Size: 4 mg Product Wasted: ___ mg Inactive 05/30/2017 [facility] Naproxen sodium 550 MG Oral Tablet [Anaprox] 550 mg=1 tab, PO, BID, PRN for pain, X 10 day, # 20 tab, 0 Refill(s) Active 12/05/2016 [facility] Ketorolac 30 mg, 1 mL, Route: IVP, Drug form: INJ, ONCE, Dosing Weight 94.091, kg, Priority: STAT, Start date: 12/05/16 12:12:00 CDT, Stop date: 12/05/16 12:12:00 CDTNotes: (Same as:Toradol) IV bolus must be given >15 seconds. Give IM administration slowly and deeply into the muscle. Not for use > 4 days MEDICATION WASTE Product Size: 30 mg Product Wasted: ___ mg Inactive 12/05/2016 [facility] Saline Flush 0.9% 10 mL, Route: IVP, Drug Form: INJ, Dosing Weight 94.091, kg, PRN, PRN Line Flush, Start date: 12/05/16 11:22:00 CDT, Duration: 30 day, Stop date: 01/04/17 10:21:00 CSTNotes: (Same as: BD Posiflush) Inactive 12/05/2016 [facility] Cyclobenzaprine hydrochloride 5 MG Oral Tablet [Flexeril] 5 mg=1 tab, PO, TID, do not take while using etoh do not take while breast feeding medication may make you feel dizzy, X 7 day, # 21 tab, 0 Refill(s) Active 11/26/2015 [facility] Naproxen 500 MG Oral Tablet [Naprosyn] 500 mg=1 tab, PO, BID, PRN Pain, do not take while breast feeding with food, X 7 day, # 14 tab, 0 Refill(s) Active 11/26/2015 [facility] tramadol hydrochloride 50 MG Oral Tablet 50 mg=1 tab, PO, Q6H, PRN Pain, take for breakthrough pain do not take while breast feeding do not mix with etoh medication may make you feel dizzy not to exceed 400 mg/day, X 10 day, # 15 tab, 0 Refill(s) Active 11/26/2015 [facility] Tylenol 650 mg, 2 tab, Route: PO, Drug form: TAB, ONCE, Dosing Weight 96.818, kg, Priority: STAT, Start date: 11/25/15 21:43:00 CDT, Stop date: 11/25/15 21:43:00 CDTNotes: Do not exceed 4 gm/day. (Same as: Tylenol) Inactive 11/26/2015 [facility] Ketorolac 30 mg, 1 mL, Route: IM, Drug form: INJ, ONCE, Dosing Weight 96.818, kg, Priority: STAT, Start date: 11/25/15 21:42:00 CDT, Stop date: 11/25/15 21:42:00 CDTNotes: (Same as:Toradol) IV bolus must be given >15 seconds. Give IM administration slowly and deeply into the muscle. Not for use > 4 days MEDICATION WASTE Product Size: 30 mg Product Wasted: ___ mg Inactive 11/26/2015 [facility]ium 5 mg, 1 tab, Route: PO, Drug form: TAB, ONCE, Dosing Weight 96.818, kg, Priority: STAT, Start date: 11/25/15 21:42:00 CDT, Stop date: 11/25/15 21:42:00 CDTNotes: (Same as: Valium) Inactive 11/26/2015 [facility] Allergies, Adverse Reactions, Alerts Substance Category Reaction Severity Reaction type Status Date Reported Comments Source N.K.D.A. Adverse Reaction Info Not Available Adverse Reaction Active 08/05/2017 [facility] No Known Medication Allergies Assertion Drug allergy [facility] Immunizations Immunization Date Given Site Status Last Updated Comments Source Results Order Name Results Value Reference Range Date Interpretation Comments Source ED Abdomen/Pelvis IV contrast only CT ED Abdomen/Pelvis IV contrast only CT STUDY: ED Abdomen/Pelvis IV contrast only CT 12/05/2017 9:27 AM CDT Ordering Physician: Augustus Gómez MD Patient Name: ALEK SHEPPARD MR: [id number] : 1985; Age: 32 years y/o Female Clinical Indication: Dysuria for 4 days associated with fever and chills. Comparison: 11/25/2017. TECHNIQUE: Multiple contiguous postcontrast transaxial CT images were obtained from the diaphragm through the symphysis pubis.Sagittal and coronal reformatted images were prepared. CT imaging performed at this location utilizes radiation dose optimization techniques which include one or more of the following: -Automated exposure control -Adjustment of the mA and/or kV according to patient size -Use of iterative reconstruction technique IV CONTRAST: 100 mL Omnipaque 300 DLP: 904.7 mGy-cm CT ABDOMEN AND PELVIS WITH CONTRAST: VISUALIZED LUNG BASES: Mild bilateral basilar subsegmental atelectasis and scarring. Small 9 mm flattened opacity along the right minor fissure likely representing scarring. Normal size heart. BOWEL GAS: Normal nonobstructed bowel gas pattern. APPENDIX: The appendix is not identified with certainty, but no pericecal inflammation is appreciated. STOMACH: Under distended appropriately thick-walled. PERITONEUM AND MESENTERY: Free Air: No evidence of pneumoperitoneum. Free Fluid: Trace free pelvic fluid in the rectouterine pouch. Mesenteric and peritoneal fat: Normal without focal lesion or inflammation. LYMPH NODES: Multiple scattered subcentimeter maximum shortness axis central mesenteric and retroperitoneal lymph nodes without lymphadenopathy or mass. VASCULAR: Abdominal Aorta: Normal caliber abdominal aorta without aneurysm or dissection. IVC: Normal caliber nonenhanced. ABDOMINAL ORGANS: Liver: Hepatomegaly measuring 23 cm maximum critical dimension without discrete lesion. Gallbladder: Normal appearing gallbladder without calcified gallstones, gallbladder wall thickening, or pericholecystic inflammation. Biliary Tree: Normal without dilatation. Kidneys: Normal size and morphology without discrete lesion or hydronephrosis. Adrenal Glands: Normal size and morphology without discrete lesion. Pancreas: Normal size and morphology without discrete lesion. Spleen: Normal size and morphology without discrete lesion. PELVIC ORGANS: Urinary bladder: Under distended urinary bladder with moderate greater than expected wall thickening and mild adjacent induration suggesting nonspecific cystitis. Reproductive organs: Normal uterus. Mildly thickened vagina and cervix associated with some low-attenuation suggesting fluid. Low-attenuation both ovaries suspicious for follicles and cysts largest on the left entering 2.1 cm. SOFT TISSUES: Multiple small bilateral inguinal lymph nodes without lymphadenopathy or mass. Tiny fat-containing OSSEOUS STRUCTURES: No fracture, dislocation, or suspicious focal osseous lesion. IMPRESSION: 1. Moderate urinary bladder wall thickening associated with mild adjacent induration greater than expected for underdistention consistent with nonspecific cystitis. 2. Mild wall thickening and low-attenuation seen in the vagina and cervix suggesting inflammation and fluid. Correlation with physical examination is recommended to exclude inflammation or infection. 3. Normal size bilateral ovarian cysts associated with trace free pelvic fluid. Follow-up pelvic ultrasound may be helpful. 4. Hepatomegaly without discrete lesion. 5. Mild subsegmental atelectasis and scarring in the lung bases. A flattened 9 mm opacity along the right minor fissure most likely represent scarring. Short interval follow-up is recommended to document stability and exclude the less likely possibility of underlying lesion. SL: [id number] 12/05/2017 - - Read by: Brandt Cohen MD Dictated Date/time: 12/05/17 12:55 Electronically Signed by: Brandt Cohen MD 12/05/17 13:19 FINAL REPORT [facility] eGFR 120 mL/min/1.73m2 11/25/2017 Result Comment: The eGFR is calculated using the [...] from the National Kidney Disease Education Program (NKDEP) which additionally recommends that when the eGFR is used in patients with extremes of body mass index for purposes of drug dosing, the eGFR should be multiplied by the estimated BMI. [place] CHEM PANEL Total Protein 7.4 g/dL 6.4 - 8.4 11/25/2017 [facility] CHEM PANEL CO2 26 meq/L 24 - 32 11/25/2017 [facility] CHEM PANEL Chloride Lvl 108 meq/L 95 - 109 11/25/2017 [facility] CHEM PANEL Calcium Lvl 8.2 mg/dL 8.5 - 10.5 11/25/2017 [place] CHEM PANEL Sodium Lvl 141 meq/L 135 - 145 11/25/2017 [facility] CHEM PANEL Potassium Lvl 3.5 meq/L 3.5 - 5.1 11/25/2017 [place] CHEM PANEL Creatinine Lvl 0.61 mg/dL 0.50 - 1.40 11/25/2017 [place] CHEM PANEL BUN 8 mg/dL 7 - 22 11/25/2017 [facility] CHEM PANEL Glucose Lvl 89 mg/dL 70 - 99 11/25/2017 [facility] CHEM PANEL AST 12 unit/L 0 - 37 11/25/2017 [facility] CHEM PANEL Bili Total 0.3 mg/dL 0.2 - 1.3 11/25/2017 [place] CHEM PANEL Alk Phos 59 unit/L 39 - 136 11/25/2017 [facility] CHEM PANEL Albumin Lvl 3.6 g/dL 3.5 - 5.0 11/25/2017 [place] CHEM PANEL ALT 20 unit/L 0 - 65 11/25/2017 [place] CHEM PANEL Globulin 3.8 g/dL 2.7 - 4.2 11/25/2017 [place] CHEM PANEL B/C Ratio 13 6 - 25 11/25/2017 [facility] CHEM PANEL A/G Ratio 0.9 0.7 - 1.6 11/25/2017 [facility] CHEM PANEL AGAP 10.5 meq/L 10.0 - 20.0 11/25/2017 [facility] CHEM PANEL Lipase Lvl 83 unit/L 73 - 393 11/25/2017 [facility] HEMATOLOGY Neutrophils # 7.5 K/CMM 1.5 - 8.1 11/25/2017 [facility] HEMATOLOGY Lymphocytes # 1.7 K/CMM 1.0 - 5.5 11/25/2017 [facility] HEMATOLOGY Monocytes # 0.6 K/CMM 0.0 - 0.8 11/25/2017 [facility] HEMATOLOGY Eosinophils # 0.2 K/CMM 0.0 - 0.5 11/25/2017 [facility] HEMATOLOGY Basophils 0.4 % 0.0 - 1.0 11/25/2017 [facility] HEMATOLOGY Eosinophils 2.1 % 0.0 - 4.0 11/25/2017 [facility] HEMATOLOGY Segs 74.3 % 45.0 - 75.0 11/25/2017 [facility] Lymphocytes 17.1 % 20.0 - 40.0 11/25/2017 [facility] Monocytes 6.1 % 2.0 - 12.0 11/25/2017 [facility] HEMATOLOGY MPV 7.1 fL 7.4 - 10.4 11/25/2017 [facility] HEMATOLOGY Platelet 394 K/CMM 133 - 450 11/25/2017 [facility] MCH 30.5 pg 27.0 - 31.0 11/25/2017 [facility] HEMATOLOGY MCHC 34.7 g/dL 32.0 - 36.0 11/25/2017 [facility] HEMATOLOGY RDW 13.6 % 11.5 - 14.5 11/25/2017 [facility] HEMATOLOGY RBC 4.40 M/CMM 4.20 - 5.40 11/25/2017 [facility] HEMATOLOGY Hgb 13.4 g/dL 12.0 - 16.0 11/25/2017 [facility] HEMATOLOGY WBC 10.0 K/CMM 3.7 - 10.4 11/25/2017 [facility] HEMATOLOGY Hct 38.7 % 36.0 - 48.0 11/25/2017 [facility] HEMATOLOGY MCV 87.9 fL 80.0 - 98.0 11/25/2017 [facility] URINE AND STOOL UA Sq Epi Few /LPF Few /LPF 11/25/2017 [facility] URINE AND STOOL UA Leuk Est Negative (11/25/17 9:34 AM) Negative 11/25/2017 [place] URINE AND STOOL UA RBC null 0 - 2 11/25/2017 [facility] URINE AND STOOL UA WBC 1 /HPF 0 - 5 11/25/2017 [place] URINE AND STOOL UA Urobilinogen <=1.0 mg/dL 0.1 - 1.0 11/25/2017 [facility] URINE AND STOOL UA Color STRAW 11/25/2017 [facility] URINE AND STOOL UA Nitrite Negative (11/25/17 9:34 AM) Negative 11/25/2017 [facility] URINE AND STOOL UA Blood Small *ABN* (11/25/17 9:34 AM) Negative 11/25/2017 [facility] URINE AND STOOL UA Protein Negative mg/dL Negative mg/dL 11/25/2017 [facility] URINE AND STOOL UA Bili Negative *NA* (11/25/17 9:34 AM) Negative 11/25/2017 [facility] URINE AND STOOL UA Ketones Negative mg/dL Negative mg/dL 11/25/2017 [facility] URINE AND STOOL UA Glucose Negative mg/dL Negative mg/dL 11/25/2017 [facility] URINE AND STOOL UA pH 7.0 5.0 - 8.0 11/25/2017 [facility] URINE AND STOOL UA Spec Grav 1.002 <=1.030 11/25/2017 [facility] URINE AND STOOL UA Turbidity Clear (11/25/17 9:34 AM) Clear 11/25/2017 [facility] URINE CHEM U Preg Negative (11/25/17 9:34 AM) Negative 11/25/2017 [facility] ED Abdomen/Pelvis IV contrast only CT ED Abdomen/Pelvis IV contrast only CT PROCEDURE: CT abdomen pelvis with contrast. Reconstruction images. INDICATION: - Left-sided abdominal pain with vomiting over the past 3 days. TECHNIQUE: GI CONTRAST: None. IV CONTRAST: 100 cc of Omnipaque-300 Axial post-contrast images were obtained from the lower chest to the symphysis pubis. Coronal and sagittal reconstruction images were performed. CT imaging performed at this location utilizes radiation dose optimization techniques which include one or more of the following: -Automated exposure control -Adjustment of the mA and/or kV according to patient size -Use of iterative reconstruction technique Total CT radiation dose: MZC=864.59 mGy-cm COMPARISON: September 02, 2017. FINDINGS: LOWER CHEST: The visualized lung bases are clear. Normal size of the heart is noted. SOLID ORGANS: No focal hepatic lesion or intrahepatic biliary ductal dilatation is seen. No calcified gallstone is noted. The spleen, pancreas, and adrenal glands are normal in appearance. Both kidneys demonstrate normal corticomedullary phase of enhancement. No renal/ureteral calculus, hydronephrosis, mass, or cyst is apparent. BOWEL: Anterior to the left colon on series 2, image 89 is a small oblong fat density focus with thin hyperdense rim and mild fat stranding. Minimal wall thickening of the distal left and proximal sigmoid colon is noted. Remaining segments of the small bowel and colon are normal in caliber without wall thickening. No appendix or pericecal inflammation is seen. PERITONEUM: No free intraperitoneal fluid or air. No ventral wall defects. RETROPERITONEUM: Normal caliber of the abdominal aorta is noted. No lymphadenopathy is seen. PELVIS: The visualized urinary bladder wall is normal thickness. Organs of reproduction are unremarkable. MUSCULOSKELETAL: No acute osseous abnormality is seen. No destructive lytic or blastic osseous lesion is noted. IMPRESSION: 1. Small oblong fat density focus with thin hyperdense rim anterior to the left colon showing surrounding fat stranding. This may represent epiploic appendicitis. 2. Minimal wall thickening of the distal left and proximal sigmoid colon, could represent colitis. SL: [id number] 11/25/2017 - - Read by: Frankie Dickson MD Dictated Date/time: 11/25/17 11:31 Electronically Signed by: Frankie Dickson MD 11/25/17 11:39 FINAL REPORT Formerly [facility] MOLECULAR DIAGNOSTIC C difficile DNA Negative (09/02/17 9:38 AM) Negative 09/02/2017 [facility] URINE AND STOOL Occult Bld Stl Positive *ABN* (09/02/17 9:38 AM) Negative 09/02/2017 [facility] Culture: Stool Normal Enteric Melyssa Isolated No Salmonella, Shigella, Or Campylobacter Isolated 09/02/2017 [facility] DRUG SCREEN U Opiate Scr Negative *NA* (09/02/17 8:15 AM) Negative 09/02/2017 [facility] DRUG SCREEN U Cannab Scr Positive *ABN* (09/02/17 8:15 AM) Negative 09/02/2017 [facility] DRUG SCREEN UDS Note See Note (09/02/17 8:15 AM) 09/02/2017 [facility] DRUG SCREEN U Cocaine Scr Negative *NA* (09/02/17 8:15 AM) Negative 09/02/2017 [facility] DRUG SCREEN U Phencyclidine Scr Negative *NA* (09/02/17 8:15 AM) Negative 09/02/2017 [facility] DRUG SCREEN U Benzodiaz Scr Negative *NA* (09/02/17 8:15 AM) Negative 09/02/2017 [facility] DRUG SCREEN U Maria Dolores Scr Negative *NA* (09/02/17 8:15 AM) Negative 09/02/2017 [facility] DRUG SCREEN U Amph Scr Negative *NA* (09/02/17 8:15 AM) Negative 09/02/2017 [facility] URINE AND STOOL UA Urobilinogen <=1.0 mg/dL 0.1 - 1.0 09/02/2017 [facility] URINE AND STOOL Micro? Performed *NA* (09/02/17 8:15 AM) 09/02/2017 [facility] URINE AND STOOL UA Nitrite Negative (09/02/17 8:15 AM) Negative 09/02/2017 [facility] URINE AND STOOL UA Leuk Est Negative (09/02/17 8:15 AM) Negative 09/02/2017 [facility] URINE AND STOOL UA Sq Epi Few /LPF Few /LPF 09/02/2017 [facility] URINE AND STOOL UA WBC 3 /HPF 0 - 5 09/02/2017 [facility] URINE AND STOOL UA Bacteria Occasional /HPF None Seen /HPF 09/02/2017 [facility] URINE AND STOOL UA RBC 8 /HPF 0 - 2 09/02/2017 [facility] URINE AND STOOL UA Ketones Negative mg/dL Negative mg/dL 09/02/2017 [facility] URINE AND STOOL UA Bili Negative *NA* (09/02/17 8:15 AM) Negative 09/02/2017 [facility] URINE AND STOOL UA Blood Moderate *ABN* (09/02/17 8:15 AM) Negative 09/02/2017 [facility] URINE AND STOOL UA Mucus Few /LPF None Seen /LPF 09/02/2017 [facility] URINE AND STOOL UA pH 6.0 5.0 - 8.0 09/02/2017 [facility] URINE AND STOOL UA Spec Grav 1.013 <=1.030 09/02/2017 [facility] URINE AND STOOL UA Glucose Negative mg/dL Negative mg/dL 09/02/2017 [facility] URINE AND STOOL UA Color Yellow *NA* (09/02/17 8:15 AM) Yellow 09/02/2017 [facility] URINE AND STOOL UA Turbidity Clear (09/02/17 8:15 AM) Clear 09/02/2017 [facility] URINE AND STOOL UA Protein Negative mg/dL Negative mg/dL [facility]/02[facility] Lipase Lvl 113 unit/L 73 - 393 09/02/2017 [facility] CHEM PANEL eGFR 117 mL/min/1.73m2 09/02/2017 Result Comment: The eGFR is calculated using the [...] from the National Kidney Disease Education Program (NKDEP) which additionally recommends that when the eGFR is used in patients with extremes of body mass index for purposes of drug dosing, the eGFR should be multiplied by the estimated BMI. [place] CHEM PANEL ALT 81 unit/L 0 - 65 09/02/2017 [facility] AST 40 unit/L 0 - 37 09/02/2017 [facility] Globulin 3.9 g/dL 2.7 - 4.2 09/02/2017 [place] CHEM PANEL A/G Ratio 1.0 0.7 - 1.6 09/02/2017 [facility] Bili Total 0.3 mg/dL 0.2 - 1.3 09/02/2017 [place] CHEM PANEL Alk Phos 71 unit/L 39 - 136 09/02/2017 [place] CHEM PANEL BUN 7 mg/dL 7 - 22 09/02/2017 [facility] Glucose Lvl 96 mg/dL 70 - 99 09/02/2017 [facility] Creatinine Lvl 0.67 mg/dL 0.50 - 1.40 09/02/2017 [place] CHEM PANEL CO2 22 meq/L 24 - 32 09/02/2017 [facility] CHEM PANEL Albumin Lvl 3.8 g/dL 3.5 - 5.0 09/02/2017 [facility] CHEM PANEL Sodium Lvl 141 meq/L 135 - 145 09/02/2017 [facility] CHEM PANEL Potassium Lvl 3.9 meq/L 3.5 - 5.1 09/02/2017 [facility] CHEM PANEL Chloride Lvl 109 meq/L 95 - 109 09/02/2017 [facility] CHEM PANEL Calcium Lvl 8.6 mg/dL 8.5 - 10.5 09/02/2017 [facility] CHEM PANEL B/C Ratio 10 6 - 25 09/02/2017 [facility] CHEM PANEL Total Protein 7.7 g/dL 6.4 - 8.4 09/02/2017 [facility] CHEM PANEL AGAP 13.9 meq/L 10.0 - 20.0 09/02/2017 [facility] ENDOCRINOLOGY S Preg Negative *NA* (09/02/17 7:33 AM) Negative 09/02/2017 [facility] HEMATOLOGY Lymphocytes # 2.5 K/CMM 1.0 - 5.5 09/02/2017 [facility] HEMATOLOGY Monocytes # 0.8 K/CMM 0.0 - 0.8 09/02/2017 [facility] HEMATOLOGY Eosinophils # 0.2 K/CMM 0.0 - 0.5 09/02/2017 [facility] HEMATOLOGY Basophils # 0.1 K/CMM 0.0 - 0.2 09/02/2017 [facility] HEMATOLOGY Segs 69.2 % 45.0 - 75.0 09/02/2017 [facility] HEMATOLOGY Lymphocytes 21.6 % 20.0 - 40.0 09/02/2017 [facility] HEMATOLOGY Monocytes 7.0 % 2.0 - 12.0 09/02/2017 [facility] HEMATOLOGY Eosinophils 1.5 % 0.0 - 4.0 09/02/2017 [facility] Basophils 0.7 % 0.0 - 1.0 09/02/2017 [facility] Neutrophils # 8.1 K/CMM 1.5 - 8.1 09/02/2017 [facility] HEMATOLOGY INR 0.91 0.85 - 1.17 09/02/2017 [facility] HEMATOLOGY PT 12.3 s 12.0 - 14.7 09/02/2017 [facility] PTT 30.5 s 22.9 - 35.8 09/02/2017 [facility] RDW 14.1 % 11.5 - 14.5 09/02/2017 [facility] Platelet 407 K/CMM 133 - 450 09/02/2017 [facility] MPV 6.9 fL 7.4 - 10.4 09/02/2017 [facility] WBC 11.7 K/CMM 3.7 - 10.4 09/02/2017 [facility] RBC 4.73 M/CMM 4.20 - 5.40 09/02/2017 [facility] Hct 41.1 % 36.0 - 48.0 09/02/2017 [facility] MCH 30.3 pg 27.0 - 31.0 09/02/2017 [facility] Hgb 14.3 g/dL 12.0 - 16.0 09/02/2017 [facility] MCV 86.9 fL 80.0 - 98.0 09/02/2017 [facility] MCHC 34.8 g/dL 32.0 - 36.0 09/02/2017 [facility] ED Abdomen/Pelvis IV contrast only CT ED Abdomen/Pelvis IV contrast only CT Patient Name: ALEK SHEPPARD : 1985; Age: 32 years y/o Female MR: [id number] Study: ED Abdomen/Pelvis IV contrast only CT 09/02/2017 7:14 AM CDT Ordering Physician: Richard Rodriguez MD Clinical Indication: - 12 days of loose stool, abdominal pain; Comparison: 05/30/2017. TECHNIQUE: Helical imaging was performed from the diaphragm through the symphysis with multiplanar reformations obtained after intravenous administration of [address] imaging performed at this location utilizes radiation dose optimization techniques which include one or more of the following: -Automated exposure control -Adjustment of the mA and/or kV according to patient size -Use of iterative reconstruction technique DLP: 929.62 mGy-cm. FINDINGS: LOWER CHEST: The lung bases are clear without significant pleural effusion bilaterally. SOLID ORGANS: No focal liver or splenic abnormality. Kidneys are unremarkable bilaterally. No pelvocaliectasis or ureterectasis bilaterally. The adrenals, pancreas and gallbladder are unremarkable. RETROPERITONEUM: Small nonspecific abdominal mesenteric nodes. No abdominal or pelvic adenopathy. The abdominal aorta is unremarkable. PELVIS: Uterus and both adnexal regions are unremarkable. Bladder is unremarkable. BOWEL: Fluid is seen within nondilated transverse and right colon that may represent a diarrheal state. No other bowel abnormality identified in the abdomen or pelvis. The appendix is unremarkable. PERITONEUM: No free intraperitoneal air. No abnormal fluid collection identified in the abdomen or pelvis. MUSCULOSKELETAL: No significant osseous abnormality. IMPRESSION: 1. Fluid within nondilated transverse and right colon that may represent diarrheal state. 2. Small nonspecific abdominal mesenteric nodes. 3. Otherwise unremarkable abdominal pelvic CT with contrast. SL: ARMAND 09/02/2017 - - Read by: Mark Auguste MD Dictated Date/time: 09/02/17 09:13 Electronically Signed by: Mark Auguste MD 09/02/17 09:24 FINAL REPORT [facility] URINE AND STOOL UA Sq Epi Few /LPF Few /LPF 08/29/2017 [facility] URINE AND STOOL UA Leuk Est Negative (08/29/17 6:45 PM) Negative 08/29/2017 [facility] URINE AND STOOL UA Nitrite Negative (08/29/17 6:45 PM) Negative 08/29/2017 [facility] URINE AND STOOL UA Urobilinogen 1.0 EU/dL 0.1 - 1.0 08/29/2017 [facility] URINE AND STOOL UA RBC 3-5 /HPF 0 - 2 08/29/2017 [facility] URINE AND STOOL UA WBC 0-2 /HPF 0 - 5 08/29/2017 [facility] URINE AND STOOL UA [place] Yeast Occasional /HPF None Seen /HPF 08/29/2017 [facility] URINE AND STOOL UA Bacteria Few /HPF None Seen /HPF 08/29/2017 [facility] URINE AND STOOL UA Ketones Trace *ABN* (08/29/17 6:45 PM) Negative 08/29/2017 [facility] URINE AND STOOL UA Blood Large *ABN* (08/29/17 6:45 PM) Negative 08/29/2017 [facility] URINE AND STOOL UA Bili Small *ABN* (08/29/17 6:45 PM) Negative 08/29/2017 [facility] URINE AND STOOL UA Protein 30 mg/dL Negative mg/dL 08/29/2017 [facility] URINE AND STOOL UA Glucose Negative (08/29/17 6:45 PM) Negative 08/29/2017 [facility] URINE AND STOOL UA Spec Grav 1.025 <=1.030 08/29/2017 [facility] URINE AND STOOL UA pH 6.0 5.0 - 8.0 08/29/2017 [facility] URINE AND STOOL UA Turbidity Clear (08/29/17 6:45 PM) Clear 08/29/2017 [facility] URINE AND STOOL UA Color Yellow *NA* (08/29/17 6:45 PM) Yellow 08/29/2017 [facility] CHEM PANEL eGFR 101 mL/min/1.73m2 08/29/2017 Result Comment: The eGFR is calculated using the [...] from the National Kidney Disease Education Program (NKDEP) which additionally recommends that when the eGFR is used in patients with extremes of body mass index for purposes of drug dosing, the eGFR should be multiplied by the estimated BMI. [facility] CHEM PANEL Calcium Lvl 8.2 mg/dL 8.5 - 10.5 08/29/2017 [facility] CHEM PANEL CO2 24 meq/L 24 - 32 08/29/2017 [facility] CHEM PANEL Chloride Lvl 108 meq/L 95 - 109 08/29/2017 [facility] CHEM PANEL Potassium Lvl 3.1 meq/L 3.5 - 5.1 08/29/2017 [facility] CHEM PANEL Glucose Lvl 97 mg/dL 70 - 99 08/29/2017 [facility] CHEM PANEL BUN 7 mg/dL 7 - 22 08/29/2017 [facility] CHEM PANEL Creatinine Lvl 0.78 mg/dL 0.50 - 1.40 08/29/2017 [facility] CHEM PANEL Sodium Lvl 143 meq/L 135 - 145 08/29/2017 [facility] CHEM PANEL AGAP 14.1 meq/L 10.0 - 20.0 08/29/2017 [facility] CHEM PANEL A/G Ratio 1.0 0.7 - 1.6 08/29/2017 [facility] CHEM PANEL Bili Indirect 0.3 mg/dL 0.0 - 1.0 08/29/2017 [facility] CHEM PANEL Globulin 3.6 g/dL 2.7 - 4.2 08/29/2017 [facility] CHEM PANEL Bili Direct 0.1 mg/dL 0.0 - 0.3 08/29/2017 [facility] CHEM PANEL Total Protein 7.1 g/dL 6.4 - 8.4 08/29/2017 [facility] CHEM PANEL Albumin Lvl 3.5 g/dL 3.5 - 5.0 08/29/2017 [facility] CHEM PANEL Alk Phos 65 unit/L 39 - 136 08/29/2017 [facility] CHEM PANEL Bili Total 0.4 mg/dL 0.2 - 1.3 08/29/2017 [facility] CHEM PANEL AST 38 unit/L 0 - 37 08/29/2017 [facility] CHEM PANEL ALT 79 unit/L 0 - 65 08/29/2017 [facility] CHEM PANEL Lipase Lvl 129 unit/L 73 - 393 08/29/2017 [facility] ENDOCRINOLOGY hCG Tot null 08/29/2017 [facility] HEMATOLOGY Monocytes 8.2 % 2.0 - 12.0 08/29/2017 [facility] HEMATOLOGY Basophils # 0.1 K/CMM 0.0 - 0.2 08/29/2017 [facility] HEMATOLOGY Eosinophils # 0.1 K/CMM 0.0 - 0.5 08/29/2017 [facility] HEMATOLOGY Monocytes # 1.0 K/CMM 0.0 - 0.8 08/29/2017 [facility] HEMATOLOGY Lymphocytes # 3.2 K/CMM 1.0 - 5.5 08/29/2017 [facility] HEMATOLOGY Neutrophils # 7.8 K/CMM 1.5 - 8.1 08/29/2017 [facility] HEMATOLOGY Eosinophils 1.2 % 0.0 - 4.0 08/29/2017 [facility] HEMATOLOGY Basophils 0.4 % 0.0 - 1.0 08/29/2017 [facility] HEMATOLOGY Lymphocytes 26.0 % 20.0 - 40.0 08/29/2017 [facility] HEMATOLOGY Segs 64.2 % 45.0 - 75.0 08/29/2017 [facility] HEMATOLOGY Platelet 390 K/CMM 133 - 450 08/29/2017 [facility] HEMATOLOGY MPV 6.8 fL 7.4 - 10.4 08/29/2017 [facility] HEMATOLOGY RDW 13.8 % 11.5 - 14.5 08/29/2017 [facility] RBC 4.33 M/CMM 4.20 - 5.40 08/29/2017 [facility] MCHC 34.9 g/dL 32.0 - 36.0 08/29/2017 [facility] MCH 30.9 pg 27.0 - 31.0 08/29/2017 [facility] MCV 88.5 fL 80.0 - 98.0 08/29/2017 [facility] Hct 38.3 % 36.0 - 48.0 08/29/2017 [facility] Hgb 13.4 g/dL 12.0 - 16.0 08/29/2017 [facility] WBC 12.1 K/CMM 3.7 - 10.4 08/29/2017 [facility] CHEM PANEL Lipase Lvl 72 unit/L 73 - 393 05/30/2017 [facility] CHEM PANEL eGFR 116 mL/min/1.73m2 05/30/2017 Result Comment: The eGFR is calculated using the [...] from the National Kidney Disease Education Program (NKDEP) which additionally recommends that when the eGFR is used in patients with extremes of body mass index for purposes of drug dosing, the eGFR should be multiplied by the estimated BMI. [place] CHEM PANEL Glucose Lvl 90 mg/dL 70 - 99 05/30/2017 [facility] Creatinine Lvl 0.70 mg/dL 0.50 - 1.40 05/30/2017 [place] CHEM PANEL BUN 8 mg/dL 7 - 22 05/30/2017 [facility] CHEM PANEL Potassium Lvl 3.7 meq/L 3.5 - 5.1 05/30/2017 [place] CHEM PANEL CO2 25 meq/L 24 - 32 05/30/2017 [place] CHEM PANEL Sodium Lvl 140 meq/L 135 - 145 05/30/2017 [place] CHEM PANEL Chloride Lvl 108 meq/L 95 - 109 05/30/2017 [facility] CHEM PANEL Total Protein 6.8 g/dL 6.4 - 8.4 05/30/2017 [facility] CHEM PANEL Calcium Lvl 7.7 mg/dL 8.5 - 10.5 05/30/2017 [facility] CHEM PANEL ALT 16 unit/L 0 - 65 05/30/2017 [facility] CHEM PANEL Albumin Lvl 3.4 g/dL 3.5 - 5.0 05/30/2017 [facility] CHEM PANEL Bili Total 0.6 mg/dL 0.2 - 1.3 05/30/2017 [facility] CHEM PANEL Alk Phos 55 unit/L 39 - 136 05/30/2017 [facility] CHEM PANEL AST 8 unit/L 0 - 37 05/30/2017 [facility] CHEM PANEL Globulin 3.4 g/dL 2.7 - 4.2 05/30/2017 [facility] CHEM PANEL B/C Ratio 11 6 - 25 05/30/2017 [facility] CHEM PANEL A/G Ratio 1.0 0.7 - 1.6 05/30/2017 [facility] CHEM PANEL AGAP 10.7 meq/L 10.0 - 20.0 05/30/2017 [facility] ENDOCRINOLOGY hCG Tot null 05/30/2017 [facility] HEMATOLOGY MCHC 34.6 g/dL 32.0 - 36.0 05/30/2017 [facility] HEMATOLOGY MPV 7.0 fL 7.4 - 10.4 05/30/2017 [facility] HEMATOLOGY Platelet 322 K/CMM 133 - 450 05/30/2017 [facility] HEMATOLOGY RDW 13.8 % 11.5 - 14.5 05/30/2017 [facility] HEMATOLOGY RBC 4.30 M/CMM 4.20 - 5.40 05/30/2017 [facility] HEMATOLOGY Hgb 13.3 g/dL 12.0 - 16.0 05/30/2017 [facility] HEMATOLOGY Hct 38.4 % 36.0 - 48.0 05/30/2017 [facility] HEMATOLOGY MCV 89.4 fL 80.0 - 98.0 05/30/2017 [facility] MCH 30.9 pg 27.0 - 31.0 05/30/2017 [facility] HEMATOLOGY WBC 8.2 K/CMM 3.7 - 10.4 05/30/2017 [facility] HEMATOLOGY Monocytes 4.8 % 2.0 - 12.0 05/30/2017 [facility] HEMATOLOGY Eosinophils 0.7 % 0.0 - 4.0 05/30/2017 [facility] HEMATOLOGY Basophils 0.2 % 0.0 - 1.0 05/30/2017 [facility] HEMATOLOGY Segs-Bands # 7.0 K/CMM 1.5 - 8.1 05/30/2017 [facility] HEMATOLOGY Lymphocytes # 0.7 K/CMM 1.0 - 5.5 05/30/2017 [facility] HEMATOLOGY Monocytes # 0.4 K/CMM 0.0 - 0.8 05/30/2017 [facility] HEMATOLOGY Eosinophils # 0.1 K/CMM 0.0 - 0.5 05/30/2017 [facility] HEMATOLOGY Lymphocytes 8.2 % 20.0 - 40.0 05/30/2017 [facility] HEMATOLOGY Segs 86.1 % 45.0 - 75.0 05/30/2017 [facility] URINE AND STOOL UA Mucus Many /LPF None Seen /LPF 05/30/2017 [facility] URINE AND STOOL UA Sq Epi Many /LPF Few /LPF 05/30/2017 [facility] URINE AND STOOL UA Bacteria Occasional /HPF None Seen /HPF 05/30/2017 [facility] URINE AND STOOL UA RBC 7 /HPF 0 - 2 05/30/2017 [facility] URINE AND STOOL UA WBC 6 /HPF 0 - 5 05/30/2017 [facility] URINE AND STOOL UA Leuk Est Negative (05/30/17 9:13 AM) Negative 05/30/2017 [facility] URINE AND STOOL UA Nitrite Negative (05/30/17 9:13 AM) Negative 05/30/2017 [facility] URINE AND STOOL UA Blood Small *ABN* (05/30/17 9:13 AM) Negative 05/30/2017 [facility] URINE AND STOOL UA Spec Grav 1.019 <=1.030 05/30/2017 [facility] URINE AND STOOL UA Turbidity Marked *ABN* (05/30/17 9:13 AM) Clear 05/30/2017 [facility] URINE AND STOOL UA Protein Negative mg/dL Negative mg/dL 05/30/2017 [facility] URINE AND STOOL UA Glucose Negative mg/dL Negative mg/dL 05/30/2017 [facility] URINE AND STOOL UA Bili Negative *NA* (05/30/17 9:13 AM) Negative 05/30/2017 [facility] URINE AND STOOL UA Ketones Negative mg/dL Negative mg/dL 05/30/2017 [facility] URINE AND STOOL UA Urobilinogen 2.0 mg/dL 0.1 - 1.0 05/30/2017 [facility] URINE AND STOOL UA pH 5.0 5.0 - 8.0 05/30/2017 [facility] URINE AND STOOL UA Color Yellow *NA* (05/30/17 9:13 AM) Yellow 05/30/2017 [facility] ED Abdomen/Pelvis IV contrast only CT ED Abdomen/Pelvis IV contrast only CT PROCEDURE: CT ABDOMEN AND PELVIS WITH CONTRAST Clinical Indication: Abdominal pain with diarrhea and vomiting since yesterday after eating lunch. Comparison: 12/05/2016 CT abdomen pelvis. TECHNIQUE: Helical imaging was performed diaphragm through the symphysis with multiplanar reformations obtained. IV CONTRAST: 100 mL Omnipaque 300. GI CONTRAST: None. DLP: 911.54 mGy-cm FINDINGS: LOWER CHEST: The lung bases are clear. LIVER: No focal liver lesions. Liver size normal. BILIARY TREE: Normal. No bile duct dilatation. GALLBLADDER: Normal. PANCREAS: Normal. SPLEEN: Normal. ADRENALS: Normal. KIDNEYS: Normal. No stones, masses or hydronephrosis evident. BOWEL: Normal appearing small bowel and appendix. There is a mild to moderate amount of liquid stool in the right and transverse colon. Small amount of formed stool noted more distally. Colon normal in caliber and otherwise normal in appearance. PERITONEUM: No free intraperitoneal fluid or air. Mesenteric vessels enhance normally. There are a few very small scattered mesenteric lymph nodes. RETROPERITONEUM: No adenopathy. The aorta and IVC are normal. PELVIS: No pelvic mass. The urinary bladder is normal. MUSCULOSKELETAL: The skeleton is intact. IMPRESSION: 1. Mild to moderate amount of liquid stool in the right and transverse colon consistent with diarrheal illness. Otherwise normal large and small bowel. 2. Nonspecific very small mesenteric lymph nodes. These can be seen with mesenteric adenitis. END IMPRESSION SL: [id number] 05/30/2017 - - Read by: Doc Fink MD Dictated Date/time: 05/30/17 10:12 Electronically Signed by: Doc Fink MD 05/30/17 10:16 FINAL REPORT [facility] CHEM PANEL Lipase Lvl 103 unit/L 73 - 393 12/05/2016 [facility] CHEM PANEL eGFR 124 mL/min/1.73m2 12/05/2016 Result Comment: The eGFR is calculated using the [...] from the National Kidney Disease Education Program (NKDEP) which additionally recommends that when the eGFR is used in patients with extremes of body mass index for purposes of drug dosing, the eGFR should be multiplied by the estimated BMI. [place] CHEM PANEL Glucose Lvl 93 mg/dL 70 - 99 12/05/2016 [facility] BUN 8 mg/dL 7 - 22 12/05/2016 [facility] Creatinine Lvl 0.57 mg/dL 0.50 - 1.40 12/05/2016 [facility] Bili Total 0.6 mg/dL 0.2 - 1.3 12/05/2016 [place] CHEM PANEL Alk Phos 57 unit/L 39 - 136 12/05/2016 [facility] ALANINE AMINOTRANSFERASE 23 unit/L 0 - 65 12/05/2016 [facility] Total Protein 7.2 g/dL 6.4 - 8.4 12/05/2016 [facility] Albumin Lvl 3.6 g/dL 3.5 - 5.0 12/05/2016 [place] CHEM PANEL Calcium Lvl 8.5 mg/dL 8.5 - 10.5 12/05/2016 [place] CHEM PANEL Potassium Lvl 4.1 meq/L 3.5 - 5.1 12/05/2016 [place] CHEM PANEL Chloride Lvl 105 meq/L 95 - 109 12/05/2016 [place] CHEM PANEL Sodium Lvl 137 meq/L 135 - 145 12/05/2016 [place] CHEM PANEL CO2 28 meq/L 24 - 32 12/05/2016 [place] CHEM PANEL ASPARTATE TRANSAMINASE 10 unit/L 0 - 37 12/05/2016 [facility] CHEM PANEL B/C Ratio 14 6 - 25 12/05/2016 [facility] CHEM PANEL A/G Ratio 1.0 0.7 - 1.6 12/05/2016 [facility] CHEM PANEL Globulin 3.6 g/dL 2.7 - 4.2 12/05/2016 [facility] CHEM PANEL AGAP 8.1 meq/L 10.0 - 20.0 12/05/2016 [facility] HEMATOLOGY Monocytes 5.8 % 2.0 - 12.0 12/05/2016 [facility] HEMATOLOGY Eosinophils 2.1 % 0.0 - 4.0 12/05/2016 [facility] HEMATOLOGY Basophils 0.3 % 0.0 - 1.0 12/05/2016 [facility] HEMATOLOGY Segs-Bands # 7.6 K/CMM 1.5 - 8.1 12/05/2016 [facility] HEMATOLOGY Lymphocytes # 2.6 K/CMM 1.0 - 5.5 12/05/2016 [facility] HEMATOLOGY Monocytes # 0.6 K/CMM 0.0 - 0.8 12/05/2016 [facility] HEMATOLOGY Eosinophils # 0.2 K/CMM 0.0 - 0.5 12/05/2016 [facility] HEMATOLOGY Segs 68.5 % 45.0 - 75.0 12/05/2016 [facility] Lymphocytes 23.3 % 20.0 - 40.0 12/05/2016 [facility] HEMATOLOGY WBC X 10x3 11.1 K/CMM 3.7 - 10.4 12/05/2016 [facility] HEMATOLOGY Hgb 13.1 g/dL 12.0 - 16.0 12/05/2016 [facility] HEMATOLOGY RBC X 10x6 4.23 M/CMM 4.20 - 5.40 12/05/2016 [facility] HEMATOLOGY Hct 38.3 % 36.0 - 48.0 12/05/2016 [facility] HEMATOLOGY MPV 7.2 fL 7.4 - 10.4 12/05/2016 [facility] HEMATOLOGY Platelet 354 K/CMM 133 - 450 12/05/2016 [facility] HEMATOLOGY MCV 90.6 fL 80.0 - 98.0 12/05/2016 [facility] MCH 31.0 pg 27.0 - 31.0 12/05/2016 [facility] HEMATOLOGY RDW 13.6 % 11.5 - 14.5 12/05/2016 [facility] HEMATOLOGY MCHC 34.3 g/dL 32.0 - 36.0 12/05/2016 [place] URINE AND STOOL UA Leuk Est Negative (12/05/16 11:48 AM) Negative 12/05/2016 [facility] URINE AND STOOL UA Ketones Negative *NA* (12/05/16 11:48 AM) Negative 12/05/2016 [place] URINE AND STOOL UA Urobilinogen 0.2 EU/dL 0.1 - 1.0 12/05/2016 [place] URINE AND STOOL UA Bili Negative *NA* (12/05/16 11:48 AM) Negative 12/05/2016 [facility] URINE AND STOOL UA Blood Small *ABN* (12/05/16 11:48 AM) Negative 12/05/2016 [place] URINE AND STOOL UA Nitrite Negative (12/05/16 11:48 AM) Negative 12/05/2016 [facility] URINE AND STOOL UA pH 6.0 5.0 - 8.0 12/05/2016 [facility] URINE AND STOOL UA Spec Grav 1.025 <=1.030 12/05/2016 [facility] URINE AND STOOL UA Turbidity Clear (12/05/16 11:48 AM) Clear 12/05/2016 [place] URINE AND STOOL UA Glucose Negative (12/05/16 11:48 AM) Negative 12/05/2016 [facility] URINE AND STOOL UA Protein Negative (12/05/16 11:48 AM) Negative 12/05/2016 [facility] URINE AND STOOL UA Color Yellow *NA* (12/05/16 11:48 AM) Yellow 12/05/2016 [facility] URINE AND STOOL UA Sq Epi Few /LPF Few /LPF 12/05/2016 [facility] URINE AND STOOL UA WBC 0-2 /HPF None Seen /HPF 12/05/2016 [place] URINE AND STOOL UA RBC 3-5 /HPF 0 - 2 12/05/2016 [facility] URINE AND STOOL UA Bacteria Rare 12/05/2016 [facility] URINE CHEM U Preg Negative (12/05/16 11:48 AM) Negative 12/05/2016 [facility] Pelvis w Transvag and Pelvis Doppler US Pelvis w Transvag and Pelvis Doppler US Pelvis w Transvag and Pelvis Doppler US CLINICAL HX: - left ovarian cyst, r/o torsion; COMPARISON: CT abdomen pelvis 12/05/2016 TECHNIQUE: Multiple static transabdominal images of the pelvis are submitted for review. FINDINGS: The uterus measures approximately 10 cm in the sagittal length. No focal masses are evident. The right ovary measures 3.2 x 2.3 x 2.3 cm. Flow is demonstrated in the right ovary on the color Doppler and spectral Doppler images. Nonvisualization of left ovary. TRANSVAGINAL ULTRASOUND: TECHNIQUE: Multiple static transvaginal images of the pelvis are submitted for review. FINDINGS: UTERUS: The uterus is unremarkable in appearance. The endometrial stripe measures 10 mm. OVARIES: Nonvisualization of right ovary. The left ovary measures 8 cm x 4.2 cm x 6 cm and contains a complex/hemorrhagic cyst approximately 5 x 3.9 x 4.6 cm. Flow is preserved in the left ovary on the color Doppler and spectral Doppler images. However, this does not exclude the possibility of incomplete or intermittent torsion. Correlation with other clinical data is recommended. No free fluid is present in the cul-de-sac. IMPRESSION: 5 cm complex/hemorrhagic cyst left ovary. No other significant sonographic abnormality is noted. SL: VERNA 12/05/2016 - - Read by: Oseas Motley MD Dictated Date/time: 12/05/16 13:37 Electronically Signed by: Oseas Motley MD 12/05/16 13:41 FINAL REPORT Formerly [facility] Renal Stone CT Renal Stone CT Clinical Indication: left flank pain - left flank pain Comparison: None. TECHNIQUE: Volumetric CT acquisition of the abdomen and pelvis without contrast. Axial, coronal and sagittal reconstructions. IV contrast: None. Enteric contrast: None. DLP: 869.81 mGy-cm FINDINGS: Lines, tubes and hardware: None. Lower thorax: Clear. Liver: Normal. Biliary tree: No intra- or extrahepatic biliary ductal dilation. Gallbladder: Normal. No CT evidence of gallstones. Pancreas: Normal. Spleen: Normal. Adrenals: Normal. Kidneys: Right kidney and ureter: Normal. No stones or hydronephrosis. Left kidney and ureter: Normal. No stones or hydronephrosis. Bladder: No radiopaque urinary bladder stones. Reproductive organs: A 5.1 x 5.5 cm left adnexal cyst is present with possible dependent debris. No right adnexal lesion is identified. The uterus is unremarkable in CT appearance. Gastrointestinal tract: The stomach is unremarkable. Small bowel is normal in caliber. A moderate colonic stool burden is present. Appendix: Normal appendix. Peritoneum and retroperitoneum: No lymphadenopathy, ascites or free air. No other fluid collection. Vasculature: The abdominal aorta is normal in caliber. Bones: No acute osseous abnormality. Soft tissues: Normal. IMPRESSION: 1. No renal, ureteral or bladder calculi. No hydronephrosis. 2. A 5.5 cm left adnexal cyst with possible dependent debris. Further evaluation with pelvic ultrasound may be performed. SL: [id number] 12/05/2016 - - Read by: Michelle De La Vega MD Dictated Date/time: 12/05/16 12:24 Electronically Signed by: Michelle De La Vega MD 12/05/16 12:30 FINAL REPORT [facility] URINE CHEM U Preg Negative (11/25/15 10:05 PM) Negative 11/26/2015 [facility] Vital Signs Vital Sign Value Date Comments Source Heart Rate 71 11/25/2017 [facility] Respitory Rate 19 11/25/2017 [facility] Temperature Oral (F) 98.4 F 11/25/2017 [facility] Systolic (mm Hg) 117 11/25/2017 [facility] Diastolic (mm Hg) 78 11/25/2017 [facility] Systolic (mm Hg) 122 11/25/2017 [facility] Diastolic (mm Hg) 68 11/25/2017 [facility] Respitory Rate 17 11/25/2017 [facility] Heart Rate 69 11/25/2017 [facility] Temperature Oral (F) 98.7 F 11/25/2017 [facility] Weight 93.182 11/25/2017 [facility] Heart Rate 74 11/25/2017 [facility] Respitory Rate 18 11/25/2017 [facility] Temperature Oral (F) 98.3 F 11/25/2017 [facility] Height 154.94 cm 11/25/2017 [facility] BMI Calculated 38.82 11/25/2017 [facility] Systolic (mm Hg) 128 11/25/2017 [facility] Diastolic (mm Hg) 84 11/25/2017 [facility] Heart Rate 62 09/02/2017 [facility] Temperature Oral (F) 98.4 F 09/02/2017 [facility] Respitory Rate 17 09/02/2017 [facility] Systolic (mm Hg) 114 09/02/2017 [facility] Diastolic (mm Hg) 80 09/02/2017 [facility] Respitory Rate 16 09/02/2017 [facility] Heart Rate 60 09/02/2017 [facility] Temperature Oral (F) 99.1 F 09/02/2017 [facility] Systolic (mm Hg) 126 09/02/2017 [facility] Diastolic (mm Hg) 82 09/02/2017 [facility] Height 154.94 cm 09/02/2017 [facility] BMI Calculated 39.38 09/02/2017 [facility] Temperature Oral (F) 97.9 F 09/02/2017 [facility] Respitory Rate 18 09/02/2017 [facility] Heart Rate 65 09/02/2017 [facility] Systolic (mm Hg) 136 09/02/2017 [facility] Diastolic (mm Hg) 85 09/02/2017 [facility] Weight 94.545 09/02/2017 [facility] Respitory Rate 18 08/30/2017 [facility] Systolic (mm Hg) 116 08/30/2017 [facility] Diastolic (mm Hg) 76 08/30/2017 [facility] Heart Rate 61 08/30/2017 [facility] Temperature Oral (F) 98.0 F 08/30/2017 [facility] Systolic (mm Hg) 124 08/30/2017 [facility] Diastolic (mm Hg) 81 08/30/2017 [facility] Heart Rate 69 08/30/2017 [facility] Systolic (mm Hg) 124 08/30/2017 [facility] Diastolic (mm Hg) 77 08/30/2017 [facility] Heart Rate 62 08/30/2017 [facility] BMI Calculated 39 08/29/2017 [facility] Weight 93.636 08/29/2017 [facility] Height 154.94 cm 08/29/2017 [facility] Temperature Oral (F) 98.6 F 08/29/2017 [facility] Respitory Rate 18 08/29/2017 [facility] Weight 216.2 08/05/2017 [facility] Height 61 08/05/2017 [facility] Temperature Oral (F) 97.2 F 08/05/2017 [facility] Heart Rate 80 08/05/2017 [facility] Diastolic (mm Hg) 77 08/05/2017 [facility] Systolic (mm Hg) 115 08/05/2017 [facility] Heart Rate 92 05/30/2017 [facility] Temperature Oral (F) 98.8 F 05/30/2017 [facility] Respitory Rate 18 05/30/2017 [facility] Systolic (mm Hg) 122 05/30/2017 [facility] Diastolic (mm Hg) 78 05/30/2017 [facility] Respitory Rate 18 05/30/2017 [facility] Systolic (mm Hg) 118 05/30/2017 [facility] Diastolic (mm Hg) 71 05/30/2017 [facility] Heart Rate 102 05/30/2017 [facility] Weight 91.364 05/30/2017 [facility] BMI Calculated 38.06 05/30/2017 [facility] Height 154.94 cm 05/30/2017 [facility] Temperature Oral (F) 99.5 F 05/30/2017 [facility] Systolic (mm Hg) 116 05/30/2017 [facility] Diastolic (mm Hg) 82 05/30/2017 [facility] Heart Rate 107 05/30/2017 [facility] Respitory Rate 16 05/30/2017 [facility] Heart Rate 85 12/05/2016 [facility] Systolic (mm Hg) 133 12/05/2016 [facility] Diastolic (mm Hg) 78 12/05/2016 [facility] Respitory Rate 18 12/05/2016 [facility] Respitory Rate 18 12/05/2016 [facility] Weight 94.091 12/05/2016 [facility] Height 154.94 cm 12/05/2016 [facility] BMI Calculated 39.19 12/05/2016 [facility] Respitory Rate 16 12/05/2016 [facility] Temperature Oral (F) 98.1 F 12/05/2016 [facility] Systolic (mm Hg) 129 12/05/2016 [facility] Diastolic (mm Hg) 79 12/05/2016 [facility] Heart Rate 58 12/05/2016 [facility] Systolic (mm Hg) 129 11/26/2015 [facility] Diastolic (mm Hg) 79 11/26/2015 [facility] Respitory Rate 18 11/26/2015 [facility] Heart Rate 90 11/26/2015 [facility] Temperature Oral (F) 98.0 F 11/26/2015 [facility] Respitory Rate 20 11/26/2015 [facility] Height 154.94 cm 11/26/2015 [facility] Temperature Oral (F) 99 F 11/26/2015 [facility] Heart Rate 117 11/26/2015 [facility] BMI Calculated 40.33 11/26/2015 [facility] Weight 96.818 11/26/2015 [facility] Systolic (mm Hg) 142 11/26/2015 [facility] Diastolic (mm Hg) 91 11/26/2015 [facility] Encounters Location Location Details Encounter Type Encounter Number Reason For Visit Attending Provider ADM Date DC Date Status Source [facility] Emergency [id number] Moise Marsh 11/26/2015 11/26/2015 [facility] Emergency [id number] [place] 12/05/2016 12/05/2016 [facility] Emergency [id number] Carlos Rice 05/30/2017 05/30/2017 [facility] Emergency [id number] Jose E Keon 08/29/2017 08/30/2017 [facility] Emergency [id number] Richard Rodriguez 09/02/2017 09/02/2017 [facility] Outpatient [id number] Clinton Redding 10/12/2017 10/12/2017 [facility] Emergency [id number] Olegario England 11/25/2017 11/25/2017 [facility] Procedures Procedure Code Date Perfomer Comments Source Tubal ligation [id number] [facility] section [id number] [facility] Tubal ligation [id number] [facility] section [id number] [facility]
--- OUTSIDE RECORDS SUMMARY | 2018-06-18 11:12 | XMS REPORT | Summary of Care ---
Author Author [facility] Organization [facility] Address Unknown Phone Unavailable Encounter HQ Yahaira(FIN) [id number] Date(s): 11/25/17 - 11/25/[address] [facility] [address] [place] [address]- [facility] [phone] Encounter Diagnosis Epiploic appendagitis (Discharge Diagnosis) - 11/25/17 Other specified diseases of intestine (Final) - 11/28/17 Nicotine dependence, cigarettes, uncomplicated (Final) - Other long term care administrator (current) drug therapy (Final) - Tubal ligation status (Final) - Discharge Disposition: Home or Self Care Attending Physician: Olegario England MD Vital Signs 1 2 3 Most recent to oldest [Reference Range]: 154.94 cm (11/25/17 8:35 AM) Height 98.4 DegF (11/25/17 1:12 PM) 98.7 DegF (11/25/17 12:19 PM) 98.3 DegF (11/25/17 8:35 AM) Temperature Oral [96.4-99.1 DegF] 117/78 mmHg (11/25/17 1:12 PM) 122/68 mmHg (11/25/17 12:19 PM) 128/84 mmHg (11/25/17 8:35 AM) Blood Pressure [90-140/60-90 mmHg] 19 BRMIN (11/25/17 1:12 PM) 17 BRMIN (11/25/17 12:19 PM) 18 BRMIN (11/25/17 8:35 AM) Respiratory Rate [14-20 BRMIN] 71 bpm (11/25/17 1:12 PM) 69 bpm (11/25/17 12:19 PM) 74 bpm (11/25/17 8:35 AM) Peripheral Pulse Rate [60-100 bpm] 93.182 kg (11/25/17 8:35 AM) Weight 38.82 m2 (11/25/17 8:35 AM) Body Mass Index Problem List No data available for this section Allergies, Adverse Reactions, Alerts No Known Medication Allergies Medications ketOROLAC 30 mg/mL injectable solution 30 mg, Route: IVP, Drug form: INJ, ONCE, Dosing Weight 93.182, kg, Priority: STA T, Start date: 11/25/17 11:57:00 CDT, Stop date: 11/25/17 11:57:00 CDT Start Date: 11/25/17 Stop Date: 11/25/17 Status: Completed morphine Sulfate 4 mg, 1 mL, Route: IVP, Drug form: SOLN, ONCE, Dosing Weight 94.545, kg, Priorit y: STAT, Start date: 11/25/17 8:38:00 CDT, Stop date: 11/25/17 8:38:00 CDT Notes: (Same as:MORPhine Sulfate) Start Date: 11/25/17 Stop Date: 11/25/17 Status: Completed naproxen 500 mg oral tablet 500 mg=1 tab, PO, Q12H, PRN Pain, X 10 day, # 20 tab, 0 Refill(s) Start Date: 11/25/17 Stop Date: 12/05/17 Status: Completed ondansetron 4 mg, 2 mL, Route: IVP, Drug form: INJ, ONCE, Dosing Weight 94.545, kg, Priority : STAT, Start date: 11/25/17 8:37:00 CDT, Stop date: 11/25/17 8:37:00 CDT Notes: (Same as: [place]) MEDICATION WASTE Product Size: 4 mgProduct Was yonas: ___ mg Start Date: 11/25/17 Stop Date: 11/25/17 Status: Completed Saline Flush 0.9% 10 mL, Route: IVP, Drug Form: INJ, Dosing Weight 94.545, kg, PRN, PRN Line Flush , Start date: 11/25/17 8:37:00 CDT, Duration: 30 day, Stop date: 12/25/17 7:36:0 0 [employer]CTION[employer]PER[employer]OR Notes: (Same as: BD Posiflush) Start Date: 11/25/17 Stop Date: 11/25/17 Status: Discontinued Sodium Chloride 0.9% (Bolus) IV 1,000 mL, 1000 ml/hr, Infuse Over: 1 hr, Route: IV, 1,000, Drug form: INJ, ONCE, Priority: STAT, Dosing Weight 94.545 kg, Start date: 11/25/17 8:37:00 CDT, Stop date: 11/25/17 8:37:00 CDT Start Date: 11/25/17 Stop Date: 11/25/17 Status: Completed Results Most recent to 1 oldest [Reference Range]: Neutrophils # 7.5 K/CMM [1.5-8.1 K/CMM] (11/25/17 9:34 AM) Lymphocytes # 1.7 K/CMM [1.0-5.5 K/CMM] (11/25/17 9:34 AM) Monocytes # [0.0-0.8 0.6 K/CMM K/CMM] (11/25/17 9:34 AM) Eosinophils # 0.2 K/CMM [0.0-0.5 K/CMM] (11/25/17 9:34 AM) eGFR 120 mL/min/1.73m2 1 *NA* (11/25/17 9:34 AM) A/G Ratio [0.7-1.6] 0.9 (11/25/17 9:34 AM) Albumin Lvl [3.5-5.0 3.6 g/dL g/dL] (11/25/17 9:34 AM) Alk Phos [39-136 59 unit/L unit/L] (11/25/17 9:34 AM) ALT [0-65 unit/L] 20 unit/L (11/25/17 9:34 AM) AGAP [10.0-20.0 10.5 mEq/L mEq/L] (11/25/17 9:34 AM) AST [0-37 unit/L] 12 unit/L (11/25/17 9:34 AM) B/C Ratio [6-25] 13 (11/25/17 9:34 AM) Basophils [0.0-1.0 0.4 % %] (11/25/17 9:34 AM) BUN [7-22 mg/dL] 8 mg/dL (11/25/17:34 AM) Calcium Lvl 8.2 mg/dL [8.5-10.5 mg/dL] *LOW* (11/25/17) Chloride Lvl [95-109 108 mEq/L mEq/L] (11/25/17 AM) CO2 [24-32 mEq/L] 26 mEq/L (11/25/17 AM) Creatinine Lvl 0.61 mg/dL [0.50-1.40 mg/dL] (11/25/1734 AM) Eosinophils [0.0-4.0 2.1 % %] (11/25/17 AM) Globulin [2.7-4.2 3.8 g/dL g/dL] (11/25/17 AM) Glucose Lvl [70-99 89 mg/dL mg/dL] (11/25/17 AM) Hct [36.0-48.0 %] 38.7 % (11/25/17 AM) Hgb [12.0-16.0 g/dL] 13.4 g/dL (11/25/17 AM) Potassium Lvl 3.5 mEq/L [3.5-5.1 mEq/L] (11/25/17 AM) Lipase Lvl [73-393 83 unit/L unit/L] (11/25/17 AM) Lymphocytes 17.1 % [20.0-40.0 %] *LOW* (11/25/17) MCH [27.0-31.0 pg] 30.5 pg (11/25/17 AM) MCHC [32.0-36.0 34.7 g/dL g/dL] (11/25/17 AM) MCV [80.0-98.0 fL] 87.9 fL (11/25/17 AM) Monocytes [2.0-12.0 6.1 % %] (11/25/1734 AM) MPV [7.4-10.4 fL] 7.1 fL *LOW* (10/15/18 9:34 AM) Sodium Lvl [135-145 141 mEq/L mEq/L] (11/25/17 9:34 AM) Platelet [133-450 394 K/CMM K/CMM] (11/25/17 9:34 AM) Segs [45.0-75.0 %] 74.3 % (11/25/17 9:34 AM) Total Protein 7.4 g/dL [6.4-8.4 g/dL] (11/25/17 9:34 AM) RBC [4.20-5.40 4.40 M/CMM M/CMM] (11/25/17 9:34 AM) RDW [11.5-14.5 %] 13.6 % (11/25/17 9:34 AM) Bili Total [0.2-1.3 0.3 mg/dL mg/dL] (11/25/17 9:34 AM) UA Bili [Negative] Negative *NA* (11/25/17 9:34 AM) UA Blood [Negative] Small *ABN* (11/25/17 9:34 AM) UA Color STRAW *NA* (11/25/17 9:34 AM) UA Glucose [Negative Negative mg/dL mg/dL] *NA* (11/25/17 9:34 AM) UA Ketones [Negative Negative mg/dL mg/dL] *NA* (11/25/17 9:34 AM) UA Leuk Est Negative [Negative] (11/25/17 9:34 AM) UA Nitrite Negative [Negative] (11/25/17 9:34 AM) UA pH [5.0-8.0] 7.0 (11/25/17 9:34 AM) U Preg [Negative] Negative (11/25/17 9:34 AM) UA Protein [Negative Negative mg/dL mg/dL] (11/25/17 9:34 AM) UA RBC [0-2 /HPF] <1 /HPF (11/25/17 9:34 AM) UA Spec Grav 1.002 [<=1.030] (11/25/17 9:34 AM) UA Sq Epi [Few /LPF] Few /LPF *NA* (11/25/17 9:34 AM) UA Turbidity [Clear] Clear (11/25/17 9:34 AM) UA Urobilinogen <=1.0 mg/dL [0.1-1.0 mg/dL] *NA* (11/25/17 9:34 AM) UA WBC [0-5 /HPF] 1 /HPF (11/25/17 9:34 AM) WBC [3.7-10.4 K/CMM] 10.0 K/CMM (11/25/17 9:34 AM) 1Result Comment: The eGFR is calculated [...] be mul tiplied by the estimated BMI. Immunizations No data available for this section [...]
[2018-06-18] MEDS ORDERED: NAPROSYN500 MG PO (11:41)
[2018-06-18 12:37] VITALS: BP 111/69
== END 2018-06-18 12:15 | disposition home or self-care (01) ==
LOC: FSED 11:08
DX: J02.9 Acute pharyngitis, unspecified (principal); B34.9 Viral infection, unspecified
CPT/HCPCS: 83518; 99283

== ENCOUNTER 2018-06-27 19:30 | Emergency (ER) | payer OTHER ==
[~2018-06-27] VITALS: Ht 157.5 cm; Wt 93.4 kg
[~2018-06-27 19:30] MED LIST: NAPROSYN500 MG PO
--- OUTSIDE RECORDS SUMMARY | 2018-06-27 19:35 | XMS REPORT | Summary of Care ---
Author Author [facility] Organization [facility] Address Unknown Phone Unavailable Encounter HQ Yahaira(HIGINIO) [id number] Date(s): 12/05/17 - 12/05/17 [facility] [address] [place] [address]- [facility] [phone] Encounter Diagnosis Acute parametritis and pelvic cellulitis (Final) - 12/09/17 Obesity, unspecified (Final) - Body mass index (BMI) 38.0-38.9, adult (Final) - Nicotine dependence, cigarettes, uncomplicated (Final) - Tubal ligation status (Final) - Acute female pelvic inflammatory disease (Discharge Diagnosis) - 12/05/17 Discharge Disposition: Home or Self Care Attending Physician: Augustus Gómez MD Vital Signs 1 2 3 Most recent to oldest [Reference Range]: 154.94 cm (12/05/17 8:40 AM) Height 99 DegF (12/05/17 2:02 PM) 99.5 DegF *HI* (12/05/17 8:40 AM) Temperature Oral [96.4-99.1 DegF] 105/54 mmHg (12/05/17 2:02 PM) 108/58 mmHg (12/05/17 12:39 PM) 106/57 mmHg (12/05/17 12:11 PM) Blood Pressure [90-140/60-90 mmHg] 17 BRMIN (12/05/17 2:02 PM) 16 BRMIN (12/05/17 12:39 PM) 17 BRMIN (12/05/17 12:11 PM) Respiratory Rate [14-20 BRMIN] 85 bpm (12/05/17 12:39 PM) 86 bpm (12/05/17 12:11 PM) 108 bpm *HI* (12/05/17 8:40 AM) Peripheral Pulse Rate [60-100 bpm] 92.273 kg (12/05/17 8:40 AM) Weight 38.44 m2 (12/05/17 8:40 AM) Body Mass Index Problem List No data available for this section Allergies, Adverse Reactions, Alerts No Known Medication Allergies Medications doxycycline hyclate 100 mg oral tablet 100 mg=1 tab, PO, Q12H, X 14 day, # 28 tab, 0 Refill(s) Start Date: 12/05/17 Stop Date: 12/19/17 Status: Completed ketOROLAC 30 mg, 1 mL, Route: IVP, Drug form: INJ, ONCE, Dosing Weight 92.273, kg, Priorit y: STAT, Start date: 12/05/17 9:27:00 CDT, Stop date: 12/05/17 9:27:00 CDT Notes: (Same as:Toradol) IV bolus must be given >15 seconds. Give IM administration slowly and deeply into the muscle.Not for use > 4 days MEDICATION WASTE Product Size: 30 mgProduct Wasted: ___ mg Start Date: 12/05/17 Stop Date: 12/05/17 Status: Completed ondansetron 4 mg, 2 mL, Route: IVP, Drug form: INJ, ONCE, Dosing Weight 92.273, kg, Priority : STAT, Start date: 12/05/17 9:27:00 CDT, Stop date: 12/05/17 9:27:00 CDT Notes: (Same as: Zofran) MEDICATION WASTE Product Size: 4 mgProduct Was yonas: ___ mg Start Date: 12/05/17 Stop Date: 12/05/17 Status: Completed Sodium Chloride 0.9% (Bolus) IV 1,000 mL, 1000 ml/hr, Infuse Over: 1 hr, Route: IV, 1,000, Drug form: INJ, ONCE, Priority: STAT, Dosing Weight 92.273 kg, Start date: 12/05/17 9:27:00 CDT, Stop date: 12/05/17 9:27:00 CDT Start Date: 12/05/17 Stop Date: 12/05/17 Status: Completed Zosyn 3.375 gm, Route: IVPB, ONCE, Dosing Weight 92.273, kg, Priority: STAT, Start steve e: 12/05/17 11:06:00 CDT, Stop date: 12/05/17 11:06:00 CDT, ABX Indication: Intr a-abdominal Infection Start Date: 12/05/17 Stop Date: 12/05/17 Status: Completed Results Most recent to 1 oldest [Reference Range]: Neutrophils # 16.8 K/CMM [1.5-8.1 K/CMM] *HI* (12/05/17 9:49 AM) Lymphocytes # 0.9 K/CMM [1.0-5.5 K/CMM] *LOW* (12/05/17 9:49 AM) Monocytes # [0.0-0.8 0.5 K/CMM K/CMM] (12/05/17 9:49 AM) Plt Morph Normal (12/05/17 9:49 AM) eGFR 112 mL/min/1.73m2 1 *NA* (12/05/17 9:49 AM) Influ A [Negative] Negative (12/05/17 9:49 AM) Influ B [Negative] Negative (12/05/17 9:49 AM) A/G Ratio [0.7-1.6] 0.9 (12/05/17 9:49 AM) Albumin Lvl [3.5-5.0 3.1 g/dL g/dL] *LOW* (12/05/17 9:49 AM) Alk Phos [39-136 57 unit/L unit/L] (12/05/17 9:49 AM) ALT [0-65 unit/L] 17 unit/L (12/05/17 9:49 AM) AGAP [10.0-20.0 11.1 mEq/L mEq/L] (12/05/17 9:49 AM) AST [0-37 unit/L] 10 unit/L (12/05/17 9:49 AM) B/C Ratio [6-25] 11 (12/05/17 9:49 AM) Bands [0.0-11.0 %] 14.0 % *HI* (12/05/17 9:49 AM) BUN [7-22 mg/dL] 8 mg/dL (12/05/17 9:49 AM) Calcium Lvl 7.8 mg/dL [8.5-10.5 mg/dL] *LOW* (12/05/17 9:49 AM) Chloride Lvl [95-109 107 mEq/L mEq/L] (12/05/17:49 AM) CO2 [24-32 mEq/L] 26 mEq/L (12/05/17:49 AM) Creatinine Lvl 0.71 mg/dL [0.50-1.40 mg/dL] (12/05/17:49 AM) Globulin [2.7-4.2 3.6 g/dL g/dL] (12/05/17:49 AM) Glucose Lvl [70-99 103 mg/dL mg/dL] *HI* (12/05/17:49 AM) Hct [36.0-48.0 %] 37.3 % (12/05/17:49 AM) Hgb [12.0-16.0 g/dL] 12.6 g/dL (12/05/17:49 AM) INR [0.85-1.17] 1.04 (12/05/17:49 AM) Potassium Lvl 3.1 mEq/L [3.5-5.1 mEq/L] *LOW* (12/05/17:49 AM) Lipase Lvl [73-393 57 unit/L unit/L] *LOW* (12/05/17:49 AM) Lymphocytes 5.0 % [20.0-40.0 %] *LOW* (12/05/17:49 AM) MCH [27.0-31.0 pg] 29.6 pg (12/05/17:49 AM) MCHC [32.0-36.0 33.8 g/dL g/dL] (12/05/17 9:49 AM) MCV [80.0-98.0 fL] 87.6 fL (12/05/17:49 AM) Monocytes [2.0-12.0 3.0 % %] (12/05/17 9:49 AM) MPV [7.4-10.4 fL] 7.0 fL *LOW* (12/05/17:49 AM) Sodium Lvl [135-145 141 mEq/L mEq/L] (10/25/18 9:49 AM) Platelet [133-450 317 K/CMM K/CMM] (12/05/17 9:49 AM) Segs [45.0-75.0 %] 78.0 % *HI* (12/05/17 9:49 AM) Total Protein 6.7 g/dL [6.4-8.4 g/dL] (12/05/17 9:49 AM) PT [12.0-14.7 13.6 seconds seconds] (12/05/17 9:49 AM) PTT [22.9-35.8 34.3 seconds seconds] (12/05/17 9:49 AM) RBC [4.20-5.40 4.26 M/CMM M/CMM] (12/05/17 9:49 AM) RBC Morph Normal (12/05/17 9:49 AM) RDW [11.5-14.5 %] 13.8 % (12/05/17 9:49 AM) S Preg [Negative] Negative *NA* (12/05/17 9:49 AM) Bili Total [0.2-1.3 0.9 mg/dL mg/dL] (12/05/17 9:49 AM) Tot Cell Ct 100 *NA* (12/05/17 9:49 AM) Troponin-I <0.02 ng/mL [0.00-0.40 ng/mL] (12/05/17 9:49 AM) UA Bacteria [None Moderate /HPF Seen /HPF] *ABN* (12/05/17 10:29 AM) UA Bili [Negative] Negative *NA* (12/05/17 10:29 AM) UA Blood [Negative] Moderate *ABN* (12/05/17 10:29 AM) UA Color [Yellow] Michelle *ABN* (12/05/17 10:29 AM) UA Glucose [Negative Negative mg/dL mg/dL] *NA* (12/05/17 10:29 AM) UA Ketones [Negative 20 mg/dL mg/dL] *ABN* (12/05/17 10:29 AM) UA Leuk Est Large [Negative] *ABN* (12/05/17 10:29 AM) UA Mucus [None Seen Many /LPF /LPF] *ABN* (12/05/17 10:29 AM) UA Nitrite Negative [Negative] (12/05/17 10:29 AM) UA pH [5.0-8.0] 5.0 (12/05/17 10:29 AM) UA Protein [Negative 100 mg/dL mg/dL] *ABN* (12/05/17 10:29 AM) UA RBC [0-2 /HPF] 26 /HPF *HI* (12/05/17 10:29 AM) UA Spec Grav 1.018 [<=1.030] (12/05/17 10:29 AM) UA Sq Epi [Few /LPF] Moderate /LPF *ABN* (12/05/17 10:29 AM) UA Turbidity [Clear] Marked *ABN* (12/05/17 10:29 AM) UA Urobilinogen <=1.0 mg/dL [0.1-1.0 mg/dL] *NA* (12/05/17 10:29 AM) UA WBC [0-5 /HPF] 163 /HPF *HI* (12/05/17 10:29 AM) WBC [3.7-10.4 K/CMM] 18.3 K/CMM *HI* (12/05/17 9:49 AM) 1Result Comment: The eGFR is calculated [...] be mul tiplied by the estimated BMI. Microbiology Reports TEST: Culture: Urine STATUS: Auth (Verified) BODY SITE: SOURCE: Urine, Clean Catch COLLECTED DATE/TIME: 12/05/17 10:29 AM FINAL REPORT No Growth Immunizations No data available for this section [...]
--- OUTSIDE RECORDS SUMMARY | 2018-06-27 19:35 | XMS REPORT | Continuity of Care Document ---
Author Author [facility] Organization Interface Address Unknown Phone Unavailable Problems Problem Status Onset Date Classification Date Reported Comments Source Acute parametritis and pelvic cellulitis 12/10/2017 06/24/2018 [facility] Acute female pelvic inflammatory disease 12/05/2017 06/24/2018 [facility] FEVER Active 12/05/2017 [facility] Other specified diseases of intestine 11/29/2017 06/14/2018 [facility] Epiploic appendagitis 11/25/2017 06/14/2018 [facility] ABD PAIN/NAUSEA Active 11/25/2017 [facility] R19.7=DIARRHEA, UNSPECIFIED/R10.11=RIGHT Active 10/09/2017 [facility] Noninfective gastroenteritis and colitis, unspecified 09/06/2017 03/22/2018 [facility] Unspecified abdominal pain 09/04/2017 03/18/2018 [facility] Chronic diarrhea 09/02/2017 03/22/2018 [facility] ABDOMINAL PAIN Active 09/02/2017 [facility] Vomiting and diarrhea 08/29/2017 03/18/2018 [facility] Abdominal pain 08/29/2017 03/18/2018 [facility] DIARRHEA Active 08/29/2017 [facility] Food poisoning 05/30/2017 06/02/2017 [facility] Abdominal pain, acute 05/30/2017 06/02/2017 [facility] VOMITING Active 05/30/2017 [facility] Discharge Diagnosis: Hemorrhagic ovarian cyst 12/05/2016 12/08/2016 [facility] Discharge Diagnosis: Strain of mid-back 11/25/2015 11/29/2015 [facility] Discharge Diagnosis: Hypertension 11/25/2015 11/29/2015 [facility] [place] PAIN Active 11/25/2015 [facility] Diarrhea, unspecified 03/18/2018 [facility] Nausea with vomiting, unspecified 03/18/2018 [facility] Nicotine dependence, cigarettes, uncomplicated 06/24/2018 [facility] Other halfway drug therapy 06/14/2018 [facility] Tubal ligation status 06/24/2018 [facility] Obesity, unspecified 06/24/2018 [facility] Body mass index 38.0-38.9, adult 06/24/2018 [facility] Obesity, morbid, BMI 40.0-49.9 Active Problem 08/08/2017 [facility] Medications Medication Details Route Status Patient Instructions Ordering Provider Order Date Source doxycycline hyclate 100 MG Oral Tablet 100 mg=1 tab, PO, Q12H, X 14 day, # 28 tab, 0 Refill(s) No Longer Active 12/05/2017 [facility] Zosyn 3.375 gm, Route: IVPB, ONCE, Dosing Weight 92.273, kg, Priority: STAT, Start date: 12/05/17 11:06:00 CDT, Stop date: 12/05/17 11:06:00 CDT, ABX Indication: Intra-abdominal Infection Inactive 12/05/2017 [facility] Ketorolac 30 mg, 1 mL, Route: IVP, Drug form: INJ, ONCE, Dosing Weight 92.273, kg, Priority: STAT, Start date: 12/05/17 9:27:00 CDT, Stop date: 12/05/17 9:27:00 CDTNotes: (Same as:Toradol) IV bolus must be given > 15 seconds. Give IM administration slowly and deeply into the muscle. Not for use > 4 days MEDICATION WASTE Product Size: 30 mg Product Wasted: ___ mg Inactive 12/05/2017 [facility] Ondansetron 4 mg, 2 mL, Route: IVP, Drug form: INJ, ONCE, Dosing Weight 92.273, kg, Priority: STAT, Start date: 12/05/17 9:27:00 CDT, Stop date: 12/05/17 9:27:00 CDTNotes: (Same as: Zofran) MEDICATION WASTE * Product Size: 4 mg Product Wasted: ___ mg Inactive 12/05/2017 [facility] Sodium Chloride 0.9% (Bolus) IV 1,000 mL, 1000 ml/hr, Infuse Over: 1 hr, Route: IV, 1,000, Drug form: INJ, ONCE, Priority: STAT, Dosing Weight 92.273 kg, Start date: 12/05/17 9:27:00 CDT, Stop date: 12/05/17 9:27:00 CDT Inactive 12/05/2017 [facility] naproxen 500 mg oral tablet 500 mg=1 tab, PO, Q12H, PRN Pain, X 10 day, # 20 tab, 0 Refill(s) No Longer Active 11/25/2017 [facility] ketOROLAC 30 mg/mL injectable solution 30 mg, Route: IVP, Drug form: INJ, ONCE, Dosing Weight 93.182, kg, Priority: STAT, Start date: 11/25/17 11:57:00 CDT, Stop date: 11/25/17 11:57:00 CDT Inactive 11/25/2017 [facility] Morphine 4 mg, 1 mL, Route: IVP, Drug form: SOLN, ONCE, Dosing Weight 94.545, kg, Priority: STAT, Start date: 11/25/17 8:38:00 CDT, Stop date: 11/25/17 8:38:00 CDTNotes: (Same as:MORPhine Sulfate) Inactive 11/25/2017 [facility] Ondansetron 4 mg, 2 mL, Route: IVP, Drug form: INJ, ONCE, Dosing Weight 94.545, kg, Priority: STAT, Start date: 11/25/17 8:37:00 CDT, Stop date: 11/25/17 8:37:00 CDTNotes: (Same as: Zofran) MEDICATION WASTE * Product Size: 4 mg Product Wasted: ___ mg Inactive 11/25/2017 [facility] Sodium Chloride 0.9% (Bolus) IV 1,000 mL, 1000 ml/hr, Infuse Over: 1 hr, Route: IV, 1,000, Drug form: INJ, ONCE, Priority: STAT, Dosing Weight 94.545 kg, Start date: 11/25/17 8:37:00 CDT, Stop date: 11/25/17 8:37:00 CDT Inactive 11/25/2017 [facility] Saline Flush 0.9% 10 mL, Route: IVP, Drug Form: INJ, Dosing Weight 94.545, kg, PRN, PRN Line Flush, Start date: 11/25/17 8:37:00 CDT, Duration: 30 day, Stop date: 12/25/17 7:36:00 CSTNotes: (Same as: BD Posiflush) Inactive 11/25/2017 [facility] Acetaminophen 325 MG / tramadol hydrochloride 37.5 MG Oral Tablet 2 tab, PO, Q6H, PRN Pain, X 7 day, # 24 tab, 0 Refill(s) No Longer Active 09/02/2017 [facility] Dicyclomine Hydrochloride 20 MG Oral Tablet [Bentyl] 20 mg=1 tab, PO, QID-Before Meals, # 40 tab, 0 Refill(s) Active 09/02/2017 [facility] pantoprazole 40 mg oral enteric coated tablet 40 mg=1 tab, PO, Daily, # 30 tab, 0 Refill(s) Active 09/02/2017 [facility] GI cocktail 30 mL, Route: PO, Dosing Weight 94.545, kg, ONCE, STAT, Start date: 09/02/17 10:08:00 CDT, Stop date: 09/02/17 10:08:00 CDT Inactive 09/02/2017 [facility] Dexamethasone 10 mg, 1 mL, Route: IVP, Drug form: INJ, ONCE, Dosing Weight 94.545, kg, Priority: STAT, Start date: 09/02/17 9:20:00 CDT, Stop date: 09/02/17 9:20:00 CDTNotes: MEDICATION WASTE Product Size: 10 mg Product Wasted: ___ mg Inactive 09/02/2017 [facility] 30 ML Morphine Sulfate 5 MG/ML Injection 6 mg, 1.5 mL, Route: IVP, Drug form: SOLN, ONCE, Dosing Weight 94.545, kg, Priority: STAT, Start date: 09/02/17 9:20:00 CDT, Stop date: 09/02/17 9:20:00 CDTNotes: (Same as:MORPhine Sulfate) Inactive 09/02/2017 [facility] GI cocktail 30 mL, Route: PO, Drug Form: SUSP, Dosing Weight 94.545, kg, ONCE, STAT, Start date: 09/02/17 7:29:00 CDT, Stop date: 09/02/17 7:29:00 CDTNotes: G.I. Cocktail=antacid with simethicone 22.5 mL - lidocaine viscous 7.5 mL Inactive 09/02/2017 [facility] Famotidine 40 mg, 4 mL, Route: IVP, Drug form: INJ, ONCE, Dosing Weight 94.545, kg, Priority: STAT, Start date: 09/02/17 7:29:00 CDT, Stop date: 09/02/17 7:29:00 CDTNotes: (Same as: Pepcid) Can be dilute in 5-10cc NS IVP: Slow IV push over at least 2 minutes. Inactive 09/02/2017 [facility] Bentyl 20 mg, 2 mL, Route: IM, Drug form: INJ, ONCE, Dosing Weight 94.545, kg, Start date: 09/02/17 7:15:00 CDT, Stop date: 09/02/17 7:15:00 CDTNotes: (Same as: Bentyl) Inactive 09/02/2017 [facility] Sodium Chloride 0.9% (Bolus) IV 1,890.9 mL, 1890.9 ml/hr, Infuse Over: 1 hr, Route: IV, 1,890.9, Drug form: INJ, ONCE, Priority: STAT, Dosing Weight 94.545 kg, Start date: 09/02/17 7:15:00 CDT, Stop date: 09/02/17 7:15:00 CDT Inactive 09/02/2017 [facility] Promethazine Hydrochloride 25 MG Oral Tablet 25 mg=1 tab, PO, Q6H, PRN Nausea/Vomiting, # 12 tab, 0 Refill(s) Active 08/30/2017 [facility] Metronidazole 500 MG Oral Tablet [Flagyl] 500 mg=1 tab, PO, Q8H, X 5 day, # 15 tab, 0 Refill(s) No Longer Active 08/30/2017 [facility] Ciprofloxacin 500 MG Oral Tablet [Cipro] 500 mg=1 tab, PO, Q12H, X 5 day, # 10 tab, 0 Refill(s) No Longer Active 08/30/2017 [facility] Potassium Chloride 40 mEq, 2 tab, Route: [...] Patients with feeding tube less than 14 [place] ([place], J-tube etc) and pediatric and patients. With food and full glass of water Inactive 08/30/2017 [facility] Sodium Chloride 0.9% (Bolus) IV 1,000 mL, 1000 ml/hr, Infuse Over: 1 hr, Route: IV, 1,000, Drug form: INJ, ONCE, Priority: STAT, Dosing Weight 93.636 kg, Start date: 08/29/17 19:27:00 CDT, Stop date: 08/29/17 19:27:00 CDT Inactive 08/30/2017 [facility] Promethazine 12.5 mg, Route: IVPB, ONCE, Dosing Weight 93.636, kg, Priority: STAT, Start date: 08/29/17 19:27:00 CDT, Stop date: 08/29/17 19:27:00 CDT Inactive 08/30/2017 [facility] Saline Flush 0.9% 10 mL, Route: IVP, Drug Form: INJ, Dosing Weight 91.364, kg, PRN, PRN Line Flush, Start date: 08/29/17 18:20:00 CDT, Duration: 30 day, Stop date: 09/28/17 18:19:00 CDTNotes: (Same as: Posiflush) Inactive 08/29/2017 [facility] Ergocalciferol 1 capsule Orally Active [id number] UNIT Orally once a week Adan 08/07/2017 [facility] Metronidazole 500 MG Oral Tablet [Flagyl] 500 mg=1 tab, PO, Q8H, X 10 day, # 30 tab, 0 Refill(s) Active 05/30/2017 [facility] Ciprofloxacin 500 MG Oral Tablet [Cipro] 500 mg=1 tab, PO, Q12H, X 10 day, # 20 tab, 0 Refill(s) Active 05/30/2017 [facility] Phenergan 25 mg oral tablet 25 mg=1 tab, PO, Q6H, PRN Nausea, # 15 tab, 0 Refill(s) Active 05/30/2017 [facility] Reglan 5 mg, Route: IVP, Drug form: INJ, ONCE, Dosing Weight 91.364, kg, Priority: STAT, Start date: 05/30/17 10:22:00 CDT, Stop date: 05/30/17 10:22:00 CDT Inactive 05/30/2017 [facility] Ketorolac 30 mg, 1 mL, Route: IVP, [...] ___ mg Inactive 05/30/2017 [facility] Sodium Chloride 0.9% (Bolus) IV 1,000 mL, 1000 ml/hr, Infuse Over: 1 hr, Route: IV, 1,000, Drug form: INJ, ONCE, Priority: STAT, Dosing Weight 91.364 kg, Start date: 05/30/17 8:57:00 CDT, Stop date: 05/30/17 8:57:00 CDT Inactive 05/30/2017 [facility] Ondansetron 4 mg, 2 mL, Route: IVP, Drug form: INJ, ONCE, Dosing Weight 91.364, kg, Priority: STAT, Start date: 05/30/17 8:57:00 CDT, Stop date: 05/30/17 8:57:00 CDTNotes: (Same as: Zofran) MEDICATION WASTE * Product Size: 4 mg Product Wasted: ___ mg Inactive 05/30/2017 [facility] Naproxen sodium 550 MG Oral Tablet [Anaprox] 550 mg=1 tab, PO, BID, PRN for pain, X 10 day, # 20 tab, 0 Refill(s) Active 12/05/2016 [facility] Ketorolac 30 mg, 1 mL, Route: IVP, [...] ___ mg Inactive 12/05/2016 [facility] Saline Flush 0.9% 10 mL, Route: IVP, Drug Form: INJ, Dosing Weight 94.091, kg, PRN, PRN Line Flush, Start date: 12/05/16 11:22:00 CDT, Duration: 30 day, Stop date: 01/04/17 10:21:00 CSTNotes: (Same as: BD Posiflush) Inactive 12/05/2016 [facility] Cyclobenzaprine hydrochloride 5 MG Oral Tablet [Flexeril] 5 mg=1 tab, PO, TID, do not take while using etoh do not take while breast feeding medication may make you feel dizzy, X 7 day, # 21 tab, 0 Refill(s) Active 11/26/2015 [facility] Naproxen 500 MG Oral Tablet [Naprosyn] 500 mg=1 tab, PO, BID, PRN Pain, do not take while breast feeding with food, X 7 day, # 14 tab, 0 Refill(s) Active 11/26/2015 [facility] tramadol hydrochloride 50 MG Oral Tablet 50 mg=1 tab, PO, Q6H, PRN Pain, take for breakthrough pain do not take while breast feeding do not mix with etoh medication may make you feel dizzy not to exceed 400 mg/day, X 10 day, # 15 tab, 0 Refill(s) Active 11/26/2015 [facility] Tylenol 650 mg, 2 tab, Route: PO, Drug form: TAB, ONCE, Dosing Weight 96.818, kg, Priority: STAT, Start date: 11/25/15 21:43:00 CDT, Stop date: 11/25/15 21:43:00 CDTNotes: Do not exceed 4 gm/day. (Same as: Tylenol) Inactive 11/26/2015 [facility] Ketorolac 30 mg, 1 mL, Route: IM, Drug form: INJ, ONCE, Dosing Weight 96.818, kg, Priority: STAT, Start date: 11/25/15 21:42:00 CDT, Stop date: 11/25/15 21:42:00 CDTNotes: (Same as:Toradol) IV bolus must be given >15 seconds. Give IM administration slowly and deeply into the muscle. Not for use > 4 days MEDICATION WASTE Product Size: 30 mg Product Wasted: ___ mg Inactive 11/26/2015 [facility] Valium 5 mg, 1 tab, Route: PO, Drug form: TAB, ONCE, Dosing Weight 96.818, kg, Priority: STAT, Start date: 11/25/15 21:42:00 CDT, Stop date: 11/25/15 21:42:00 CDTNotes: (Same as: Valium) Inactive 11/26/2015 [facility] Allergies, Adverse Reactions, Alerts Substance Category Reaction Severity Reaction type Status Date Reported Comments Source N.K.D.A. Adverse Reaction Info Not Available Adverse Reaction Active 08/05/2017 [facility] No Known Medication Allergies Assertion Drug allergy [facility] Immunizations Immunization Date Given Site Status Last Updated Comments Source Results Order Name Results Value Reference Range Date Interpretation Comments Source URINE AND STOOL UA Urobilinogen <=1.0 mg/dL 0.1 - 1.0 12/05/2017 [facility] URINE AND STOOL UA RBC 26 /HPF 0 - 2 12/05/2017 [facility] URINE AND STOOL UA Bacteria Moderate /HPF None Seen /HPF 12/05/2017 [facility] URINE AND STOOL UA WBC 163 /HPF 0 - 5 12/05/2017 [facility] URINE AND STOOL UA Leuk Est Large *ABN* (12/05/17 10:29 AM) Negative 12/05/2017 [facility] URINE AND STOOL UA Sq Epi Moderate /LPF Few /LPF 12/05/2017 [facility] URINE AND STOOL UA Nitrite Negative (12/05/17 10:29 AM) Negative 12/05/2017 [facility] URINE AND STOOL UA Mucus Many /LPF None Seen /LPF 12/05/2017 [facility] URINE AND STOOL UA Bili Negative *NA* (12/05/17 10:29 AM) Negative 12/05/2017 [facility] URINE AND STOOL UA Blood Moderate *ABN* (12/05/17 10:29 AM) Negative 12/05/2017 [facility] URINE AND STOOL UA Ketones 20 mg/dL Negative mg/dL 12/05/2017 [facility] URINE AND STOOL UA Glucose Negative mg/dL Negative mg/dL 12/05/2017 [facility] URINE AND STOOL UA Color Michelle *ABN* (12/05/17 10:29 AM) Yellow 12/05/2017 [facility] URINE AND STOOL UA Spec Grav 1.018 <=1.030 12/05/2017 [facility] URINE AND STOOL UA Turbidity Marked *ABN* (12/05/17 10:29 AM) Clear 12/05/2017 [facility] URINE AND STOOL UA pH 5.0 5.0 - 8.0 12/05/2017 [facility] URINE AND STOOL UA Protein 100 mg/dL Negative mg/dL 12/05/2017 [facility] Culture: Urine No Growth 12/05/2017 [facility] CARDIAC ENZYMES Troponin-I null 0.00 - 0.40 12/05/2017 [facility] CHEM PANEL Albumin Lvl 3.1 g/dL 3.5 - 5.0 12/05/2017 [facility] CHEM PANEL Total Protein 6.7 g/dL 6.4 - 8.4 [facility]05[facility] Chloride Lvl 107 meq/L 95 - 109 12/05/2017 [facility] CHEM PANEL Potassium Lvl 3.1 meq/L 3.5 - 5.1 12/05/2017 [facility] Calcium Lvl 7.8 mg/dL 8.5 - 10.5 [facility]/05/[facility] CO2 26 meq/L 24 - 32 12/05/2017 [facility] CHEM PANEL BUN 8 mg/dL 7 - 22 12/05/2017 [facility] CHEM PANEL Glucose Lvl 103 mg/dL 70 - 99 12/05/2017 [facility] CHEM PANEL Creatinine Lvl 0.71 mg/dL 0.50 - 1.40 12/05/2017 [facility] Sodium Lvl 141 meq/L 135 - 145 [facility]/05[facility] AST 10 unit/L 0 - 37 [facility]/05[facility] ALT 17 unit/L 0 - 65 12/05/2017 [facility] CHEM PANEL Bili Total 0.9 mg/dL 0.2 - 1.3 12/05/2017 [facility] CHEM PANEL Alk Phos 57 unit/L 39 - 136 12/05/2017 [facility] CHEM PANEL eGFR 112 mL/min/1.73m2 12/05/2017 Result Comment: The eGFR is calculated using [...] should be multiplied by the estimated BMI. [facility] CHEM PANEL A/G Ratio 0.9 0.7 - 1.6 12/05/2017 [facility] CHEM PANEL Globulin 3.6 g/dL 2.7 - 4.2 12/05/2017 [facility] CHEM PANEL B/C Ratio 11 6 - 25 12/05/2017 [facility] CHEM PANEL AGAP 11.1 meq/L 10.0 - 20.0 12/05/2017 [facility] CHEM PANEL Lipase Lvl 57 unit/L 73 - 393 12/05/2017 [facility] ENDOCRINOLOGY S Preg Negative *NA* (12/05/17 9:49 AM) Negative 12/05/2017 [facility] HEMATOLOGY Monocytes # 0.5 K/CMM 0.0 - 0.8 12/05/2017 [facility] HEMATOLOGY Tot Cell Ct 100 12/05/2017 [facility] Lymphocytes 5.0 % 20.0 - 40.0 12/05/2017 [facility] HEMATOLOGY Bands 14.0 % 0.0 - 11.0 12/05/2017 [facility] HEMATOLOGY Segs 78.0 % 45.0 - 75.0 12/05/2017 [facility] HEMATOLOGY Plt Morph Normal (12/05/17 9:49 AM) 12/05/2017 [facility] Lymphocytes # 0.9 K/CMM 1.0 - 5.5 12/05/2017 [facility] HEMATOLOGY Monocytes 3.0 % 2.0 - 12.0 12/05/2017 [facility] HEMATOLOGY Neutrophils # 16.8 K/CMM 1.5 - 8.1 12/05/2017 [facility] HEMATOLOGY RBC Morph Normal (12/05/17 9:49 AM) 12/05/2017 [facility] RDW 13.8 % 11.5 - 14.5 12/05/2017 [facility] Platelet 317 K/CMM 133 - 450 12/05/2017 [facility] MPV 7.0 fL 7.4 - 10.4 12/05/2017 [facility] MCHC 33.8 g/dL 32.0 - 36.0 12/05/2017 [facility] MCV 87.6 fL 80.0 - 98.0 12/05/2017 [facility] MCH 29.6 pg 27.0 - 31.0 12/05/2017 [facility] Hgb 12.6 g/dL 12.0 - 16.0 12/05/2017 [facility] Hct 37.3 % 36.0 - 48.0 12/05/2017 [facility] WBC 18.3 K/CMM 3.7 - 10.4 12/05/2017 [facility] RBC 4.26 M/CMM 4.20 - 5.40 12/05/2017 [facility] INR 1.04 0.85 - 1.17 12/05/2017 [facility] PT 13.6 s 12.0 - 14.7 12/05/2017 [facility] PTT 34.3 s 22.9 - 35.8 12/05/2017 [facility] VIRAL - SEROLOGY Influ B Negative (12/05/17 9:49 AM) Negative 12/05/2017 [facility] VIRAL - SEROLOGY Influ A Negative (12/05/17 9:49 AM) Negative 12/05/2017 [facility] ED Abdomen/Pelvis IV contrast only CT ED Abdomen/Pelvis IV contrast only CT STUDY: ED Abdomen/Pelvis IV contrast only CT 12/05/2017 9:27 AM CDT Ordering Physician: Augustus Gómez MD Patient Name: ALEK SHEPPARD MR: [id number] : 1985; Age: 32 years y/o Female [...] less likely possibility of underlying lesion. SL: [id number] 12/05/2017 - - Read by: Brandt Cohen MD Dictated Date/time: 12/05/17 12:55 Electronically Signed by: Brandt Cohen MD 12/05/17 13:19 FINAL REPORT [facility] eGFR 120 mL/min/1.73m2 11/25/2017 Result Comment: The [...] should be multiplied by the estimated BMI. [facility] CHEM PANEL Total Protein 7.4 g/dL 6.4 - 8.4 11/25/2017 [facility] CHEM PANEL CO2 26 meq/L 24 - 32 11/25/2017 [facility] CHEM PANEL Chloride Lvl 108 meq/L 95 - 109 11/25/2017 [facility] CHEM PANEL Calcium Lvl 8.2 mg/dL 8.5 - 10.5 11/25/2017 [facility] CHEM PANEL Sodium Lvl 141 meq/L 135 - 145 11/25/2017 [facility] CHEM PANEL Potassium Lvl 3.5 meq/L 3.5 - 5.1 11/25/2017 [facility] CHEM PANEL Creatinine Lvl 0.61 mg/dL 0.50 - 1.40 11/25/2017 [facility] CHEM PANEL BUN 8 mg/dL 7 - 22 11/25/2017 [facility] CHEM PANEL Glucose Lvl 89 mg/dL 70 - 99 11/25/2017 [facility] CHEM PANEL AST 12 unit/L 0 - 37 11/25/2017 [facility] CHEM PANEL Bili Total 0.3 mg/dL 0.2 - 1.3 11/25/2017 [facility] CHEM PANEL Alk Phos 59 unit/L 39 - 136 11/25/2017 [facility] CHEM PANEL Albumin Lvl 3.6 g/dL 3.5 - 5.0 11/25/2017 [facility] CHEM PANEL ALT 20 unit/L 0 - 65 11/25/2017 [facility] CHEM PANEL Globulin 3.8 g/dL 2.7 - 4.2 11/25/2017 [facility] CHEM PANEL B/C Ratio 13 6 - 25 11/25/2017 [facility] CHEM PANEL A/G Ratio 0.9 0.7 - 1.6 11/25/2017 [facility] CHEM PANEL AGAP 10.5 meq/L 10.0 - 20.0 11/25/2017 [facility] CHEM PANEL Lipase Lvl 83 unit/L 73 - 393 11/25/2017 [facility] HEMATOLOGY Neutrophils # 7.5 K/CMM 1.5 - 8.1 11/25/2017 [facility] HEMATOLOGY Lymphocytes # 1.7 K/CMM 1.0 - 5.5 11/25/2017 [facility] HEMATOLOGY Monocytes # 0.6 K/CMM 0.0 - 0.8 11/25/2017 [facility] [facility] H[facility] Eosinophils # 0.2 K/CMM 0.0 - 0.5 11/25/2017 [facility] HEMATOLOGY Basophils 0.4 % 0.0 - 1.0 11/25/2017 [facility] HEMATOLOGY Eosinophils 2.1 % 0.0 - 4.0 11/25/2017 [facility] HEMATOLOGY Segs 74.3 % 45.0 - 75.0 11/25/2017 [facility] HEMATOLOGY Lymphocytes 17.1 % 20.0 - 40.0 11/25/2017 [facility] HEMATOLOGY Monocytes 6.1 % 2.0 - 12.0 11/25/2017 [facility] HEMATOLOGY MPV 7.1 fL 7.4 - 10.4 11/25/2017 [facility] HEMATOLOGY Platelet 394 K/CMM 133 - 450 11/25/2017 [facility] HEMATOLOGY MCH 30.5 pg 27.0 - 31.0 11/25/2017 [facility] HEMATOLOGY MCHC 34.7 g/dL 32.0 - 36.0 11/25/2017 [facility] HEMATOLOGY RDW 13.6 % 11.5 - 14.5 11/25/2017 [facility] HEMATOLOGY RBC 4.40 M/CMM 4.20 - 5.40 11/25/2017 [facility] HEMATOLOGY Hgb 13.4 g/dL 12.0 - 16.0 11/25/2017 [facility] HEMATOLOGY WBC 10.0 K/CMM 3.7 - 10.4 11/25/2017 [facility] HEMATOLOGY Hct 38.7 % 36.0 - 48.0 11/25/2017 [facility] HEMATOLOGY MCV 87.9 fL 80.0 - 98.0 11/25/2017 [facility] URINE AND STOOL UA Sq Epi Few /LPF Few /LPF 11/25/2017 [facility] URINE AND STOOL UA Leuk Est Negative (11/25/17 9:34 AM) Negative 11/25/2017 [facility] URINE AND STOOL UA RBC null 0 - 2 11/25/2017 [facility] URINE AND STOOL UA WBC 1 /HPF 0 - 5 11/25/2017 [facility] URINE AND STOOL UA Urobilinogen <=1.0 mg/dL 0.1 - 1.0 11/25/2017 [facility] URINE AND STOOL UA Color STRAW 11/25/2017 [facility] URINE AND STOOL UA Nitrite Negative (11/25/17 9:34 AM) Negative 11/25/2017 [facility] URINE AND STOOL UA Blood Small *ABN* (11/25/17 9:34 AM) Negative 11/25/2017 [facility] URINE AND STOOL UA Protein Negative mg/dL Negative mg/dL 11/25/2017 [facility] URINE AND STOOL UA Bili Negative *NA* (11/25/17 9:34 AM) Negative 11/25/2017 [facility] URINE AND STOOL UA Ketones Negative mg/dL Negative mg/dL 11/25/2017 [facility] URINE AND STOOL UA Glucose Negative mg/dL Negative mg/dL 11/25/2017 [facility] URINE AND STOOL UA pH 7.0 5.0 - 8.0 11/25/2017 [facility] URINE AND STOOL UA Spec Grav 1.002 <=1.030 11/25/2017 [facility] URINE AND STOOL UA Turbidity Clear (11/25/17 9:34 AM) Clear 11/25/2017 [facility] URINE CHEM U Preg Negative (11/25/17 9:34 AM) Negative 11/25/2017 [facility] ED Abdomen/Pelvis IV contrast only CT ED [...] iterative reconstruction technique Total CT radiation dose: IDJ=490.59 mGy-cm COMPARISON: September 02, 2017. FINDINGS: LOWER [...] proximal sigmoid colon, could represent colitis. SL: [id number] 11/25/2017 - - Read by: Frankie Dickson MD Dictated Date/time: 11/25/17 11:31 Electronically Signed by: Frankie Dickson MD 11/25/17 11:39 FINAL REPORT [facility] MOLECULAR DIAGNOSTIC C difficile DNA Negative (09/02/17 9:38 AM) Negative 09/02/2017 [facility] URINE AND STOOL Occult Bld Stl Positive *ABN* (09/02/17 9:38 AM) Negative 09/02/2017 [facility] Culture: Stool Normal Enteric Melyssa Isolated No Salmonella, Shigella, Or Campylobacter Isolated [facility]02[facility] Opiate Scr Negative *NA* (09/02/17 8:15 AM) Negative [facility]/02/[facility] Cannab Scr Positive *ABN* (09/02/17 8:15 AM) Negative 09/02/2017 [facility] DRUG SCREEN UDS Note See Note (09/02/17 8:15 AM) 09/02/2017 [facility] DRUG SCREEN U Cocaine Scr Negative *NA* (09/02/17 8:15 AM) Negative 09/02/2017 [facility] DRUG SCREEN U Phencyclidine Scr Negative *NA* (09/02/17 8:15 AM) Negative 09/02/2017 [facility] DRUG SCREEN U Benzodiaz Scr Negative *NA* (09/02/17 8:15 AM) Negative 09/02/2017 [facility] DRUG SCREEN U Maria Dolores Scr Negative *NA* (09/02/17 8:15 AM) Negative 09/02/2017 [facility] DRUG SCREEN U Amph Scr Negative *NA* (09/02/17 8:15 AM) Negative 09/02/2017 [facility] URINE AND STOOL UA Urobilinogen <=1.0 mg/dL 0.1 - 1.0 09/02/2017 [facility] URINE AND STOOL Micro? Performed *NA* (09/02/17 8:15 AM) 09/02/2017 [facility] URINE AND STOOL UA Nitrite Negative (09/02/17 8:15 AM) Negative 09/02/2017 [facility] URINE AND STOOL UA Leuk Est Negative (09/02/17 8:15 AM) Negative 09/02/2017 [facility] URINE AND STOOL UA Sq Epi Few /LPF Few /LPF 09/02/2017 [facility] URINE AND STOOL UA WBC 3 /HPF 0 - 5 09/02/2017 [facility] URINE AND STOOL UA Bacteria Occasional /HPF None Seen /HPF 09/02/2017 [facility] URINE AND STOOL UA RBC 8 /HPF 0 - 2 09/02/2017 [facility] URINE AND STOOL UA Ketones Negative mg/dL Negative mg/dL 09/02/2017 [facility] URINE AND STOOL UA Bili Negative *NA* (09/02/17 8:15 AM) Negative 09/02/2017 [facility] URINE AND STOOL UA Blood Moderate *ABN* (09/02/17 8:15 AM) Negative 09/02/2017 [facility] URINE AND STOOL UA Mucus Few /LPF None Seen /LPF 09/02/2017 [facility] URINE AND STOOL UA pH 6.0 5.0 - 8.0 09/02/2017 [facility] URINE AND STOOL UA Spec Grav 1.013 <=1.030 09/02/2017 [facility] URINE AND STOOL UA Glucose Negative mg/dL Negative mg/dL 09/02/2017 [facility] URINE AND STOOL UA Color Yellow *NA* (09/02/17 8:15 AM) Yellow 09/02/2017 [facility] URINE AND STOOL UA Turbidity Clear (09/02/17 8:15 AM) Clear 09/02/2017 [facility] URINE AND STOOL UA Protein Negative mg/dL Negative mg/dL 09/02/2017 [facility] CHEM PANEL Lipase Lvl 113 unit/L 73 - 393 09/02/2017 [facility] CHEM PANEL eGFR 117 mL/min/1.73m2 09/02/2017 Result [...] should be multiplied by the estimated BMI. [facility] CHEM PANEL ALT 81 unit/L 0 - 65 09/02/2017 [facility] CHEM PANEL AST 40 unit/L 0 - 37 09/02/2017 [facility] CHEM PANEL Globulin 3.9 g/dL 2.7 - 4.2 09/02/2017 [facility] CHEM PANEL A/G Ratio 1.0 0.7 - 1.6 09/02/2017 [facility] CHEM PANEL Bili Total 0.3 mg/dL 0.2 - 1.3 09/02/2017 [facility] CHEM PANEL Alk Phos 71 unit/L 39 - 136 09/02/2017 [facility] CHEM PANEL BUN 7 mg/dL 7 - 22 [facility]/02/[facility] Glucose Lvl 96 mg/dL 70 - 99 09/02/2017 [facility] Creatinine Lvl 0.67 mg/dL 0.50 - 1.40 09/02/2017 [facility] CO2 22 meq/L 24 - 32 09/02/2017 [facility] CHEM PANEL Albumin Lvl 3.8 g/dL 3.5 - 5.0 09/02/2017 [facility] CHEM PANEL Sodium Lvl 141 meq/L 135 - 145 09/02/2017 [facility] CHEM PANEL Potassium Lvl 3.9 meq/L 3.5 - 5.1 09/02/2017 [facility] CHEM PANEL Chloride Lvl 109 meq/L 95 - 109 09/02/2017 [facility] CHEM PANEL Calcium Lvl 8.6 mg/dL 8.5 - 10.5 09/02/2017 [facility] CHEM PANEL B/C Ratio 10 6 - 25 09/02/2017 [facility] CHEM PANEL Total Protein 7.7 g/dL 6.4 - 8.4 09/02/2017 [facility] CHEM PANEL AGAP 13.9 meq/L 10.0 - 20.0 09/02/2017 [facility] ENDOCRINOLOGY S Preg Negative *NA* (09/02/17 7:33 AM) Negative 09/02/2017 [facility] HEMATOLOGY Lymphocytes # 2.5 K/CMM 1.0 - 5.5 09/02/2017 [facility] HEMATOLOGY Monocytes # 0.8 K/CMM 0.0 - 0.8 09/02/2017 [facility] HEMATOLOGY Eosinophils # 0.2 K/CMM 0.0 - 0.5 09/02/2017 [facility] HEMATOLOGY Basophils # 0.1 K/CMM 0.0 - 0.2 09/02/2017 [facility] HEMATOLOGY Segs 69.2 % 45.0 - 75.0 09/02/2017 [facility] Lymphocytes 21.6 % 20.0 - 40.0 09/02/2017 [facility] Monocytes 7.0 % 2.0 - 12.0 09/02/2017 [facility] Eosinophils 1.5 % 0.0 - 4.0 09/02/2017 [facility] Basophils 0.7 % 0.0 - 1.0 09/02/2017 [facility] Neutrophils # 8.1 K/CMM 1.5 - 8.1 09/02/2017 [facility] INR 0.91 0.85 - 1.17 09/02/2017 [facility] PT 12.3 s 12.0 - 14.7 09/02/2017 [facility] PTT 30.5 s 22.9 - 35.8 09/02/2017 [facility] RDW 14.1 % 11.5 - 14.5 09/02/2017 [facility] Platelet 407 K/CMM 133 - 450 09/02/2017 [facility] MPV 6.9 fL 7.4 - 10.4 09/02/2017 [facility] WBC 11.7 K/CMM 3.7 - 10.4 09/02/2017 [facility] RBC 4.73 M/CMM 4.20 - 5.40 09/02/2017 [facility] Hct 41.1 % 36.0 - 48.0 09/02/2017 [facility] MCH 30.3 pg 27.0 - 31.0 09/02/2017 [facility] Hgb 14.3 g/dL 12.0 - 16.0 09/02/2017 [facility] MCV 86.9 fL 80.0 - 98.0 09/02/2017 [facility] MCHC 34.8 g/dL 32.0 - 36.0 09/02/2017 [facility] ED Abdomen/Pelvis IV contrast only CT ED Abdomen/Pelvis IV contrast only CT Patient Name: ALEK SHEPPARD : 1985; Age: 32 years y/o Female MR: [id number] Study: ED Abdomen/Pelvis IV contrast only CT [...] Mark Auguste MD 09/02/17 09:24 FINAL REPORT [facility] URINE AND STOOL UA Sq Epi Few /LPF Few /LPF 08/29/2017 [facility] URINE AND STOOL UA Leuk Est Negative (08/29/17 6:45 PM) Negative 08/29/2017 [facility] URINE AND STOOL UA Nitrite Negative (08/29/17 6:45 PM) Negative 08/29/2017 [facility] URINE AND STOOL UA Urobilinogen 1.0 EU/dL 0.1 - 1.0 08/29/2017 [facility] URINE AND STOOL UA RBC 3-5 /HPF 0 - 2 08/29/2017 [facility] URINE AND STOOL UA WBC 0-2 /HPF 0 - 5 08/29/2017 [facility] URINE AND STOOL UA [place] Yeast Occasional /HPF None Seen /HPF 08/29/2017 [facility] URINE AND STOOL UA Bacteria Few /HPF None Seen /HPF 08/29/2017 [facility] URINE AND STOOL UA Ketones Trace *ABN* (08/29/17 6:45 PM) Negative 08/29/2017 [facility] URINE AND STOOL UA Blood Large *ABN* (08/29/17 6:45 PM) Negative 08/29/2017 [facility] URINE AND STOOL UA Bili Small *ABN* (08/29/17 6:45 PM) Negative 08/29/2017 [facility] URINE AND STOOL UA Protein 30 mg/dL Negative mg/dL 08/29/2017 [facility] URINE AND STOOL UA Glucose Negative (08/29/17 6:45 PM) Negative 08/29/2017 [facility] URINE AND STOOL UA Spec Grav 1.025 <=1.030 08/29/2017 [facility] URINE AND STOOL UA pH 6.0 5.0 - 8.0 08/29/2017 [facility] URINE AND STOOL UA Turbidity Clear (08/29/17 6:45 PM) Clear 08/29/2017 [facility] URINE AND STOOL UA Color Yellow *NA* (08/29/17 6:45 PM) Yellow 08/29/2017 [facility] CHEM PANEL eGFR 101 mL/min/1.73m2 08/29/2017 Result [...] should be multiplied by the estimated BMI. [facility] CHEM PANEL Calcium Lvl 8.2 mg/dL 8.5 - 10.5 08/29/2017 [facility] CHEM PANEL CO2 24 meq/L 24 - 32 08/29/2017 [facility] CHEM PANEL Chloride Lvl 108 meq/L 95 - 109 08/29/2017 [facility] CHEM PANEL Potassium Lvl 3.1 meq/L 3.5 - 5.1 08/29/2017 [facility] CHEM PANEL Glucose Lvl 97 mg/dL 70 - 99 08/29/2017 [facility] CHEM PANEL BUN 7 mg/dL 7 - 22 08/29/2017 [facility] CHEM PANEL Creatinine Lvl 0.78 mg/dL 0.50 - 1.40 08/29/2017 [facility] CHEM PANEL Sodium Lvl 143 meq/L 135 - 145 08/29/2017 [facility] CHEM PANEL AGAP 14.1 meq/L 10.0 - 20.0 08/29/2017 [facility] CHEM PANEL A/G Ratio 1.0 0.7 - 1.6 08/29/2017 [facility] CHEM PANEL Bili Indirect 0.3 mg/dL 0.0 - 1.0 08/29/2017 [facility] CHEM PANEL Globulin 3.6 g/dL 2.7 - 4.2 08/29/2017 [facility] CHEM PANEL Bili Direct 0.1 mg/dL 0.0 - 0.3 08/29/2017 [facility] CHEM PANEL Total Protein 7.1 g/dL 6.4 - 8.4 08/29/2017 [facility] CHEM PANEL Albumin Lvl 3.5 g/dL 3.5 - 5.0 08/29/2017 [facility] CHEM PANEL Alk Phos 65 unit/L 39 - 136 08/29/2017 [facility] CHEM PANEL Bili Total 0.4 mg/dL 0.2 - 1.3 08/29/2017 [facility] CHEM PANEL AST 38 unit/L 0 - 37 08/29/2017 [facility] CHEM PANEL ALT 79 unit/L 0 - 65 08/29/2017 [facility] CHEM PANEL Lipase Lvl 129 unit/L 73 - 393 08/29/2017 [facility] ENDOCRINOLOGY hCG Tot null 08/29/2017 [facility] HEMATOLOGY Monocytes 8.2 % 2.0 - 12.0 08/29/2017 [facility] HEMATOLOGY Basophils # 0.1 K/CMM 0.0 - 0.2 08/29/2017 [facility] HEMATOLOGY Eosinophils # 0.1 K/CMM 0.0 - 0.5 08/29/2017 [facility] HEMATOLOGY Monocytes # 1.0 K/CMM 0.0 - 0.8 08/29/2017 [facility] HEMATOLOGY Lymphocytes # 3.2 K/CMM 1.0 - 5.5 08/29/2017 [facility] HEMATOLOGY Neutrophils # 7.8 K/CMM 1.5 - 8.1 08/29/2017 [facility] Eosinophils 1.2 % 0.0 - 4.0 08/29/2017 [facility] Basophils 0.4 % 0.0 - 1.0 08/29/2017 [facility] Lymphocytes 26.0 % 20.0 - 40.0 08/29/2017 [facility] Segs 64.2 % 45.0 - 75.0 08/29/2017 [facility] Platelet 390 K/CMM 133 - 450 08/29/2017 [facility] MPV 6.8 fL 7.4 - 10.4 08/29/2017 [facility] RDW 13.8 % 11.5 - 14.5 08/29/2017 [facility] RBC 4.33 M/CMM 4.20 - 5.40 08/29/2017 [facility] MCHC 34.9 g/dL 32.0 - 36.0 08/29/2017 [facility] MCH 30.9 pg 27.0 - 31.0 08/29/2017 [facility] MCV 88.5 fL 80.0 - 98.0 08/29/2017 [facility] Hct 38.3 % 36.0 - 48.0 08/29/2017 [facility] Hgb 13.4 g/dL 12.0 - 16.0 08/29/2017 [facility] WBC 12.1 K/CMM 3.7 - 10.4 08/29/2017 [facility] CHEM PANEL Lipase Lvl 72 unit/L 73 - 393 05/30/2017 [facility] CHEM PANEL eGFR 116 mL/min/1.73m2 05/30/2017 Result [...] should be multiplied by the estimated BMI. [facility] CHEM PANEL Glucose Lvl 90 mg/dL 70 - 99 05/30/2017 [facility] CHEM PANEL Creatinine Lvl 0.70 mg/dL 0.50 - 1.40 05/30/2017 [facility] CHEM PANEL BUN 8 mg/dL 7 - 22 05/30/2017 [facility] CHEM PANEL Potassium Lvl 3.7 meq/L 3.5 - 5.1 05/30/2017 [facility] CHEM PANEL CO2 25 meq/L 24 - 32 05/30/2017 [facility] Sodium Lvl 140 meq/L 135 - 145 05/30/2017 [facility] CHEM PANEL Chloride Lvl 108 meq/L 95 - 109 05/30/2017 [facility] CHEM PANEL Total Protein 6.8 g/dL 6.4 - 8.4 05/30/2017 [facility] CHEM PANEL Calcium Lvl 7.7 mg/dL 8.5 - 10.5 05/30/2017 [facility] CHEM PANEL ALT 16 unit/L 0 - 65 05/30/2017 [facility] CHEM PANEL Albumin Lvl 3.4 g/dL 3.5 - 5.0 05/30/2017 [facility] CHEM PANEL Bili Total 0.6 mg/dL 0.2 - 1.3 05/30/2017 [facility] CHEM PANEL Alk Phos 55 unit/L 39 - 136 05/30/2017 [facility] CHEM PANEL AST 8 unit/L 0 - 37 05/30/2017 [facility] CHEM PANEL Globulin 3.4 g/dL 2.7 - 4.2 05/30/2017 [facility] CHEM PANEL B/C Ratio 11 6 - 25 05/30/2017 [facility] CHEM PANEL A/G Ratio 1.0 0.7 - 1.6 05/30/2017 [facility] CHEM PANEL AGAP 10.7 meq/L 10.0 - 20.0 05/30/2017 [facility] ENDOCRINOLOGY hCG Tot null 05/30/2017 [facility] HEMATOLOGY MCHC 34.6 g/dL 32.0 - 36.0 05/30/2017 [facility] HEMATOLOGY MPV 7.0 fL 7.4 - 10.4 05/30/2017 [facility] HEMATOLOGY Platelet 322 K/CMM 133 - 450 05/30/2017 [facility] HEMATOLOGY RDW 13.8 % 11.5 - 14.5 05/30/2017 [facility] HEMATOLOGY RBC 4.30 M/CMM 4.20 - 5.40 05/30/2017 [facility] HEMATOLOGY Hgb 13.3 g/dL 12.0 - 16.0 05/30/2017 [facility] Hct 38.4 % 36.0 - 48.0 05/30/2017 [facility] MCV 89.4 fL 80.0 - 98.0 05/30/2017 [facility] MCH 30.9 pg 27.0 - 31.0 05/30/2017 [facility] WBC 8.2 K/CMM 3.7 - 10.4 05/30/2017 [facility] Monocytes 4.8 % 2.0 - 12.0 05/30/2017 [facility] Eosinophils 0.7 % 0.0 - 4.0 05/30/2017 [facility] Basophils 0.2 % 0.0 - 1.0 05/30/2017 [facility] Segs-Bands # 7.0 K/CMM 1.5 - 8.1 05/30/2017 [facility] Lymphocytes # 0.7 K/CMM 1.0 - 5.5 05/30/2017 [facility] Monocytes # 0.4 K/CMM 0.0 - 0.8 05/30/2017 [facility] Eosinophils # 0.1 K/CMM 0.0 - 0.5 05/30/2017 [facility] Lymphocytes 8.2 % 20.0 - 40.0 05/30/2017 [facility] Segs 86.1 % 45.0 - 75.0 05/30/2017 [facility] URINE AND STOOL UA Mucus Many /LPF None Seen /LPF 05/30/2017 [facility] URINE AND STOOL UA Sq Epi Many /LPF Few /LPF 05/30/2017 [facility] URINE AND STOOL UA Bacteria Occasional /HPF None Seen /HPF 05/30/2017 [facility] URINE AND STOOL UA RBC 7 /HPF 0 - 2 05/30/2017 [facility] URINE AND STOOL UA WBC 6 /HPF 0 - 5 05/30/2017 [facility] URINE AND STOOL UA Leuk Est Negative (05/30/17 9:13 AM) Negative 05/30/2017 [facility] URINE AND STOOL UA Nitrite Negative (4/19/18 9:13 AM) Negative 05/30/2017 [facility] URINE AND STOOL UA Blood Small *ABN* (05/30/17 9:13 AM) Negative 05/30/2017 [facility] URINE AND STOOL UA Spec Grav 1.019 <=1.030 05/30/2017 [facility] URINE AND STOOL UA Turbidity Marked *ABN* (05/30/17 9:13 AM) Clear 05/30/2017 [facility] URINE AND STOOL UA Protein Negative mg/dL Negative mg/dL 05/30/2017 [facility] URINE AND STOOL UA Glucose Negative mg/dL Negative mg/dL 05/30/2017 [facility] URINE AND STOOL UA Bili Negative *NA* (05/30/17 9:13 AM) Negative 05/30/2017 [facility] URINE AND STOOL UA Ketones Negative mg/dL Negative mg/dL 05/30/2017 [facility] URINE AND STOOL UA Urobilinogen 2.0 mg/dL 0.1 - 1.0 05/30/2017 [facility] URINE AND STOOL UA pH 5.0 5.0 - 8.0 05/30/2017 [facility] URINE AND STOOL UA Color Yellow *NA* (05/30/17 9:13 AM) Yellow 05/30/2017 [facility] ED Abdomen/Pelvis IV contrast only CT ED [...] seen with mesenteric adenitis. END IMPRESSION SL: [id number] 05/30/2017 - - Read by: Doc Fink MD Dictated Date/time: 05/30/17 10:12 Electronically Signed by: Doc Fink MD 05/30/17 10:16 FINAL REPORT [facility] CHEM PANEL Lipase Lvl 103 unit/L 73 - 393 12/05/2016 [facility] CHEM PANEL eGFR 124 mL/min/1.73m2 12/05/2016 Result [...] should be multiplied by the estimated BMI. [facility] CHEM PANEL Glucose Lvl 93 mg/dL 70 - 99 12/05/2016 [facility] BUN 8 mg/dL 7 - 22 12/05/2016 [facility] Creatinine Lvl 0.57 mg/dL 0.50 - 1.40 12/05/2016 [facility] Bili Total 0.6 mg/dL 0.2 - 1.3 12/05/2016 [facility] Alk Phos 57 unit/L 39 - 136 12/05/2016 [facility] ALANINE AMINOTRANSFERASE 23 unit/L 0 - 65 12/05/2016 [facility] Total Protein 7.2 g/dL 6.4 - 8.4 12/05/2016 [facility] CHEM PANEL Albumin Lvl 3.6 g/dL 3.5 - 5.0 12/05/2016 [facility] CHEM PANEL Calcium Lvl 8.5 mg/dL 8.5 - 10.5 12/05/2016 [facility] CHEM PANEL Potassium Lvl 4.1 meq/L 3.5 - 5.1 12/05/2016 [facility] CHEM PANEL Chloride Lvl 105 meq/L 95 - 109 12/05/2016 [facility] CHEM PANEL Sodium Lvl 137 meq/L 135 - 145 12/05/2016 [facility] CHEM PANEL CO2 28 meq/L 24 - 32 12/05/2016 [facility] CHEM PANEL ASPARTATE TRANSAMINASE 10 unit/L 0 - 37 12/05/2016 [facility] CHEM PANEL B/C Ratio 14 - 25 12/05/2016 [facility] CHEM PANEL A/G Ratio 1.0 0.7 - 1.6 12/05/2016 [facility] CHEM PANEL Globulin 3.6 g/dL 2.7 - 4.2 12/05/2016 [facility] CHEM PANEL AGAP 8.1 meq/L 10.0 - 20.0 12/05/2016 [facility] HEMATOLOGY Monocytes 5.8 % 2.0 - 12.0 12/05/2016 [facility] HEMATOLOGY Eosinophils 2.1 % 0.0 - 4.0 12/05/2016 [facility] HEMATOLOGY Basophils 0.3 % 0.0 - 1.0 12/05/2016 [facility] HEMATOLOGY Segs-Bands # 7.6 K/CMM 1.5 - 8.1 12/05/2016 [facility] HEMATOLOGY Lymphocytes # 2.6 K/CMM 1.0 - 5.5 12/05/2016 [facility] HEMATOLOGY Monocytes # 0.6 K/CMM 0.0 - 0.8 12/05/2016 [facility] HEMATOLOGY Eosinophils # 0.2 K/CMM 0.0 - 0.5 12/05/2016 [facility] HEMATOLOGY Segs 68.5 % 45.0 - 75.0 12/05/2016 [facility] HEMATOLOGY Lymphocytes 23.3 % 20.0 - 40.0 12/05/2016 [facility] HEMATOLOGY WBC X 10x3 11.1 K/CMM 3.7 - 10.4 12/05/2016 [facility] HEMATOLOGY Hgb 13.1 g/dL 12.0 - 16.0 12/05/2016 [facility] HEMATOLOGY RBC X 10x6 4.23 M/CMM 4.20 - 5.40 12/05/2016 [facility] HEMATOLOGY Hct 38.3 % 36.0 - 48.0 12/05/2016 [facility] HEMATOLOGY MPV 7.2 fL 7.4 - 10.4 12/05/2016 [facility] HEMATOLOGY Platelet 354 K/CMM 133 - 450 12/05/2016 [facility] HEMATOLOGY MCV 90.6 fL 80.0 - 98.0 12/05/2016 [facility] HEMATOLOGY MCH 31.0 pg 27.0 - 31.0 12/05/2016 [facility] HEMATOLOGY RDW 13.6 % 11.5 - 14.5 12/05/2016 [facility] HEMATOLOGY MCHC 34.3 g/dL 32.0 - 36.0 12/05/2016 [facility] URINE AND STOOL UA Leuk Est Negative (12/05/16 11:48 AM) Negative 12/05/2016 [facility] URINE AND STOOL UA Ketones Negative *NA* (12/05/16 11:48 AM) Negative 12/05/2016 [facility] URINE AND STOOL UA Urobilinogen 0.2 EU/dL 0.1 - 1.0 12/05/2016 [facility] URINE AND STOOL UA Bili Negative *NA* (12/05/16 11:48 AM) Negative 12/05/2016 [facility] URINE AND STOOL UA Blood Small *ABN* (12/05/16 11:48 AM) Negative 12/05/2016 [facility] URINE AND STOOL UA Nitrite Negative (12/05/16 11:48 AM) Negative 12/05/2016 [facility] URINE AND STOOL UA pH 6.0 5.0 - 8.0 12/05/2016 [facility] URINE AND STOOL UA Spec Grav 1.025 <=1.030 12/05/2016 [facility] URINE AND STOOL UA Turbidity Clear (12/05/16 11:48 AM) Clear 12/05/2016 [facility] URINE AND STOOL UA Glucose Negative (12/05/16 11:48 AM) Negative 12/05/2016 [facility] URINE AND STOOL UA Protein Negative (12/05/16 11:48 AM) Negative 12/05/2016 [facility] URINE AND STOOL UA Color Yellow *NA* (12/05/16 11:48 AM) Yellow 12/05/2016 [facility] URINE AND STOOL UA Sq Epi Few /LPF Few /LPF 12/05/2016 [facility] URINE AND STOOL UA WBC 0-2 /HPF None Seen /HPF 12/05/2016 [facility] URINE AND STOOL UA RBC 3-5 /HPF 0 - 2 12/05/2016 [facility] URINE AND STOOL UA Bacteria Rare 12/05/2016 [facility] URINE CHEM U Preg Negative (12/05/16 11:48 AM) Negative 12/05/2016 [facility] Pelvis w Transvag and Pelvis Doppler US [...] Oseas Motley MD 12/05/16 13:41 FINAL REPORT [facility] Renal Stone CT Renal Stone CT [...] with pelvic ultrasound may be performed. SL: [id number] 12/05/2016 - - Read by: Michelle De La Vega MD Dictated Date/time: 12/05/16 12:24 Electronically Signed by: Michelle De La Vega MD 12/05/16 12:30 FINAL REPORT [facility] URINE CHEM U Preg Negative (11/25/15 10:05 PM) Negative 11/26/2015 [facility] Vital Signs Vital Sign Value Date Comments Source Systolic (mm Hg) 105 12/05/2017 [facility] Diastolic (mm Hg) 54 12/05/2017 [facility] Temperature Oral (F) 99 F 12/05/2017 [facility] Respitory Rate 17 12/05/2017 [facility] Heart Rate 85 12/05/2017 [facility] Systolic (mm Hg) 108 12/05/2017 [facility] Diastolic (mm Hg) 58 12/05/2017 [facility] Respitory Rate 16 12/05/2017 [facility] Heart Rate 86 12/05/2017 [facility] Respitory Rate 17 12/05/2017 [facility] Systolic (mm Hg) 106 12/05/2017 [facility] Diastolic (mm Hg) 57 12/05/2017 [facility] BMI Calculated 38.44 12/05/2017 [facility] Weight 92.273 12/05/2017 [facility] Heart Rate 108 12/05/2017 [facility] Temperature Oral (F) 99.5 F 12/05/2017 [facility] Height 154.94 cm 12/05/2017 [facility] 71 [facility] 11/25/2017 [facility] Temperature Oral (F) 98.4 F 11/25/2017 [facility] Systolic (mm Hg) 117 [facility]/25/[facility] Diastolic (mm Hg) 78 11/25/2017 [facility] Systolic (mm Hg) 122 11/25/2017 [facility] Diastolic (mm Hg) 68 11/25/2017 [facility] Respitory Rate 17 11/25/2017 [facility] Heart Rate 69 11/25/2017 [facility] Temperature Oral (F) 98.7 F 11/25/2017 [facility] Weight 93.182 11/25/2017 [facility] Heart Rate 74 11/25/2017 [facility] Respitory Rate 18 11/25/2017 [facility] Temperature Oral (F) 98.3 F 11/25/2017 [facility] Height 154.94 cm 11/25/2017 [facility] BMI Calculated 38.82 11/25/2017 [facility] Systolic (mm Hg) 128 11/25/2017 [facility] Diastolic (mm Hg) 84 11/25/2017 [facility] Heart Rate 62 09/02/2017 [facility] Temperature Oral (F) 98.4 F 09/02/2017 [facility] Respitory Rate 17 09/02/[facility] Systolic (mm Hg) 114 [facility]/02/[facility] Diastolic (mm Hg) 80 09/02/[facility] Rate 16 09/02/2017 [facility] Heart Rate 60 09/02/2017 [facility] Temperature Oral (F) 99.1 F 09/02/2017 [facility] Systolic (mm Hg) 126 09/02/2017 [facility] Diastolic (mm Hg) 82 09/02/2017 [facility] Height 154.94 cm 09/02/2017 [facility] BMI Calculated 39.38 09/02/2017 [facility] Temperature Oral (F) 97.9 F 09/02/2017 [facility] Respitory Rate 18 09/02/2017 [facility] Heart Rate 65 09/02/2017 [facility] Systolic (mm Hg) 136 09/02/2017 [facility] Diastolic (mm Hg) 85 09/02/2017 [facility] Weight 94.545 09/02/2017 [facility] Respitory Rate 18 08/30/2017 [facility] Systolic (mm Hg) 116 08/30/2017 [facility] Diastolic (mm Hg) 76 08/30/2017 [facility] Heart Rate 61 08/30/2017 [facility] Temperature Oral (F) 98.0 F 08/30/2017 [facility] Systolic (mm Hg) 124 08/30/2017 [facility] Diastolic (mm Hg) 81 08/30/2017 [facility] Heart Rate 69 08/30/2017 [facility] Systolic (mm Hg) 124 08/30/2017 [facility] Diastolic (mm Hg) 77 08/30/2017 [facility] Heart Rate 62 08/30/2017 [facility] BMI Calculated 39 08/29/2017 [facility] Weight 93.636 08/29/2017 [facility] Height 154.94 cm 08/29/2017 [facility] Temperature Oral (F) 98.6 F 08/29/2017 [facility] Respitory Rate 18 08/29/2017 [facility] Weight 216.2 08/05/2017 [facility] Height 61 08/05/2017 [facility] Temperature Oral (F) 97.2 F 08/05/2017 [facility] Heart Rate 80 08/05/2017 [facility] Diastolic (mm Hg) 77 08/05/2017 [facility] Systolic (mm Hg) 115 08/05/2017 [facility] Heart Rate 92 05/30/2017 [facility] Temperature Oral (F) 98.8 F 05/30/2017 [facility] Respitory Rate 18 05/30/2017 [facility] Systolic (mm Hg) 122 05/30/2017 [facility] Diastolic (mm Hg) 78 05/30/2017 [facility] Respitory Rate 18 05/30/2017 [facility] Systolic (mm Hg) 118 05/30/2017 [facility] Diastolic (mm Hg) 71 05/30/2017 [facility] Heart Rate 102 05/30/2017 [facility] Weight 91.364 05/30/2017 [facility] BMI Calculated 38.06 05/30/2017 [facility] Height 154.94 cm 05/30/2017 [facility] Temperature Oral (F) 99.5 F 05/30/2017 [facility] Systolic (mm Hg) 116 05/30/2017 [facility] Diastolic (mm Hg) 82 05/30/2017 [facility] Heart Rate 107 05/30/2017 [facility] Respitory Rate 16 05/30/2017 [facility] Heart Rate 85 12/05/2016 [facility] Systolic (mm Hg) 133 12/05/2016 [facility] Diastolic (mm Hg) 78 12/05/2016 [facility] Respitory Rate 18 12/05/2016 [facility] Respitory Rate 18 12/05/2016 [facility] Weight 94.091 12/05/2016 [facility] Height 154.94 cm 12/05/2016 [facility] BMI Calculated 39.19 12/05/2016 [facility] Respitory Rate 16 12/05/2016 [facility] Temperature Oral (F) 98.1 F 12/05/2016 [facility] Systolic (mm Hg) 129 12/05/2016 [facility] Diastolic (mm Hg) 79 12/05/2016 [facility] Heart Rate 58 12/05/2016 [facility] Systolic (mm Hg) 129 11/26/2015 [facility] Diastolic (mm Hg) 79 11/26/2015 [facility] Respitory Rate 18 11/26/2015 [facility] Heart Rate 90 11/26/2015 [facility] Temperature Oral (F) 98.0 F 11/26/2015 [facility] Respitory Rate 20 11/26/2015 [facility] Height 154.94 cm 11/26/2015 [facility] Temperature Oral (F) 99 F 11/26/2015 [facility] Heart Rate 117 11/26/2015 [facility] BMI Calculated 40.33 11/26/2015 [facility] Weight 96.818 11/26/2015 [facility] Systolic (mm Hg) 142 11/26/2015 [facility] Diastolic (mm Hg) 91 11/26/2015 [facility] Encounters Location Location Details Encounter Type Encounter Number Reason For Visit Attending Provider ADM Date DC Date Status Source [facility] Emergency [id number] Moise Salma 11/26/2015 11/26/2015 [facility] Emergency [id number] Flaquito Alvarez 12/05/2016 12/05/2016 [facility] Emergency [id number] Carlos Rice 05/30/2017 05/30/2017 [facility] Emergency [id number] Jose E Howardrory 08/29/2017 08/30/2017 [facility] Emergency [id number] Richard Jennifer 09/02/2017 09/02/2017 [facility] Outpatient [id number] Clinton Miladis 10/12/2017 10/12/2017 [facility] Emergency [id number] Olegario England 11/25/2017 11/25/2017 [facility] Emergency [id number] Augustus Alcocereme 12/05/2017 12/05/2017 [facility] Procedures Procedure Code Date Perfomer Comments Source Tubal ligation [id number] [facility] section [id number] [facility] Tubal ligation [id number] [facility] section [id number] [facility]
[2018-06-27] MEDS ORDERED: SODIUM CHLORIDE 0.9% 1000ML 1,000 ML IV STA (19:49)
[2018-06-27] MEDS ORDERED: ACETAMINOPHEN 325 MG TAB PO ONE (20:00)
[2018-06-27] MEDS ORDERED: ONDANSETRON HCL INJ 2MG/ML 2ML 2 MG/ML VIAL IV ONE (20:00)
[2018-06-27] MEDS ORDERED: DEXAMETHASONE SOD PHOS 10 MG/1 ML VIAL IV ONE (20:00)
[2018-06-27] MEDS ORDERED: KETOROLAC TROMETHAMINE 30 MG/ML VIAL IV ONE (20:00)
[2018-06-27] MEDS ORDERED: ACETAMINOPHEN 325 MG TAB ONE (20:02)
[2018-06-27] MEDS ORDERED: ONDANSETRON HCL INJ 2MG/ML 2ML 2 MG/ML VIAL ONE (20:02)
--- NOTE | 2018-06-27 20:49 | Diagnostic Imaging Report ---
ADDENDUM #1 I have reviewed the images and agree with findings in preliminary report. Signed by: Dr. Karen Ding M.D. on 06/27/2018 9:21 PM ORIGINAL REPORT Exam: Noncontrast Head CT History: 32-year-old female with pressure in head going to neck for one week Comparison studies: None Technique: Axial images were obtained from the skull base to the vertex. Coronal and sagittal reconstructions obtained from the axial data. Dose modulation, iterative reconstruction, and/or weight based adjustment of the mA/kV was utilized to reduce the radiation dose to as low as reasonably achievable. Findings: Scalp/skull: No abnormalities. No fractures, blastic or lytic lesions. Extra-axial spaces: No masses. No fluid collections. Brain sulci: Appropriate for age. Ventricles: Normal in size and configuration. No hydrocephalus. Parenchyma: No abnormal densities. No masses, hemorrhage, acute or chronic cortical vascular insults. Sellar/suprasellar region: No abnormalities Craniocervical junction: Patent foramen magnum. No Chiari one malformation. IMPRESSION: No acute abnormalities. Report dictated by neuroradiology fellow. Final read to follow. Signed by: Gary Basilio MD on 06/27/2018 8:46 PM
== END 2018-06-27 20:57 | disposition home or self-care (01) ==
LOC: FSED 19:30
DX: G44.211 Episodic tension-type headache, intractable (principal)
CPT/HCPCS: 70450; 80053; 81003; 81025; 85025; 85379; 99284; J1100; J1885; J2405; J7030

== ENCOUNTER 2018-07-23 16:14 | Emergency (ER) | payer OTHER ==
[~2018-07-23] VITALS: Ht 154.9 cm; Wt 95.3 kg
--- OUTSIDE RECORDS SUMMARY | 2018-07-23 16:18 | XMS REPORT ---
Author Author [facility] Address Unknown Phone Unavailable Care Team Providers Care Jewelry Finisher Name Role Phone Dylan MATHEW Unavailable Unavailable Problems This patient has no known problems. Allergies, Adverse Reactions, Alerts This patient has no known allergies or adverse reactions. Medications This patient has no known medications. Results Test Description Test Time Test Comments Text Results Atomic Results Result Comments CT BRAIN WO-HOPD 2018-06-27 20:44:00 [place] [address] Patient Name: ALEK SHEPPARD MR #: [id number] : 1985 Age/Sex: 32/F Req #: [id number] Adm Physician: Ordered by: JAMES MATHEW MD Report #: [id number] Location: [facility] Room/Bed: Procedure: [id number] HOPD/CT BRAIN WO-HOPD Exam Date: 06/27/18 Exam Time: 2019 REPORT STATUS: Signed ADDENDUM #1 I have reviewed the images and agree with findings in preliminary report. Signed by: Dr. Karen Ding M.D. on 06/27/2018 9:21 PM ORIGINAL REPORT Exam: Noncontrast Head CT History: 32-year-old female with pressure in head going to neck for one week Comparison studies: None Technique: Axial images were obtained from the skull base to the vertex. Coronal and sagittal reconstructions obtained from the axial data. Dose modulation, iterative reconstruction, and/or weight based adjustment of the mA/kV was utilized to reduce the radiation dose to as low as reasonably achievable. Findings: Scalp/skull: No abnormalities. No fractures, blastic or lytic lesions. Extra-axial spaces: No masses. No fluid collections. Brain sulci: Appropriate for age. Ventricles: Normal in size and configuration. No hydrocephalus. Parenchyma: No abnormal densities. No masses, hemorrhage, acute or chronic cortical vascular insults. Sellar/suprasellar region: No abnormalities Craniocervical junction: Patent foramen magnum. No Chiari one malformation. IMPRESSION: No acute abnormalities. Report dictated by neuroradiology fellow. Final read to follow. Signed by: Gary Basilio MD on 06/27/2018 8:46 PM Dictated By: LANCE BASILIO MD 20 Transcribed By: JONO on 06/27/182045 COPY TO: JAMES MATHEW MD
[2018-07-23] MEDS ORDERED: SODIUM CHLORIDE 0.9% 1000ML 1,000 ML IV SCH (16:30)
[2018-07-23] MEDS ORDERED: NAPROXEN250 MG PO (16:58)
--- NOTE | 2018-07-23 17:50 | NUR ---
PT STATED SHE WAS LEAVING BECAUSE SHE WANTED PAIN MEDICATION AND DIDNT WANT TO WAIT, DR MILNER EXPLANED TO THE PATIENT THAT WE WOULD GIVE HER NAPROXEN FOR HER PAIN AND RUN SOME TEST TO MAKE SURE SHE WASNT HAVING A HEART ATTACK OR PE. PT STATED SHE JUST WANTED SOMETHING FOR THE PAIN. PT STATED SHE WAS SEEING SPACER TYPE BAR AND SEGMENT BUT THAT SHE DID NOT HAVE A DIAGNOSIS. PT STATED HER DOCTOR WOULD NOT GIVE HER ANYTHING FOR THE PAIN. I EXPLAINED TO THE PATIENT THAT SHE SHOULD STAY AND HAVE THE TESTING DONE. BUT SHE REFUSED SINCE "THERE WAS NOTHING FOR US TO DO" AND SHE DIDNT WANT TO WAIT. PT THEN ASKED FOR A NOTE FOR WORK. I INFORMED PATIENT THAT SHE WOULD HAVE TO BE SEEN IN ORDER TO GET A NOTE.
== END 2018-07-23 17:50 | disposition left against medical advice (07) ==
LOC: FSED 16:14
DX: R07.89 Other chest pain (principal); M79.10 Myalgia, unspecified site; Z87.891 Personal history of nicotine dependence
CPT/HCPCS: 99282

== ENCOUNTER 2019-04-29 14:55 | Emergency (ER) | payer OTHER ==
[~2019-04-29] VITALS: Ht 154.9 cm; Wt 96.8 kg
[~2019-04-29 14:55] MED LIST changes: +NAPROXEN250 MG PO
[2019-04-29] MEDS ORDERED: ALBUTEROL SULF 0.083% NEB SOLN 3 ML NEB NEB STA (15:15)
[2019-04-29] MEDS ORDERED: DEXAMETHASONE SOD PHOS 10 MG/1 ML VIAL IV ONE (15:15)
[2019-04-29] MEDS ORDERED: KETOROLAC TROMETHAMINE 30 MG/ML VIAL IV ONE (15:15)
[2019-04-29] MEDS ORDERED: SODIUM CHLORIDE 0.9% 1000ML 1,000 ML IV SCH (15:15)
[2019-04-29] MEDS ORDERED: IPRATROPIUM BROMIDE 0.02% 2.5 ML NEB NEB STA (15:15)
[2019-04-29] MEDS ORDERED: ONDANSETRON HCL INJ 2MG/ML 2ML 2 MG/ML VIAL IV PRN (15:15)
[2019-04-29] MEDS ORDERED: CEFTRIAXONE SOD 1 GM/NS 50 ML 50 ML IV ONE ×2 (15:15→15:53)
[2019-04-29] MEDS ORDERED: DEXAMETHASONE SOD PHOS 10 MG/1 ML VIAL ONE (15:52)
[2019-04-29] MEDS ORDERED: ONDANSETRON HCL INJ 2MG/ML 2ML 2 MG/ML VIAL ONE (15:52)
[2019-04-29] MEDS ORDERED: KETOROLAC TROMETHAMINE 30 MG/ML VIAL ONE (15:52)
[2019-04-29] MEDS ORDERED: IPRATROPIUM BROMIDE 0.02% 2.5 ML NEB ONE (15:53)
[2019-04-29] MEDS ORDERED: SODIUM CHLORIDE 0.9% 1000ML 1,000 ML ONE (15:53)
[2019-04-29] MEDS ORDERED: ALBUTEROL SULF 0.083% NEB SOLN 3 ML NEB ONE (15:54)
--- NOTE | 2019-04-29 15:58 | Diagnostic Imaging Report ---
EXAMINATION: CXR 2 VIEW - HOPD INDICATION: Cough, shortness of breath COMPARISON: None FINDINGS: LINES/TUBES:None LUNGS:The lungs are well-inflated. No focal consolidation or pulmonary edema. PLEURA:No pleural effusion or pneumothorax. MEDIASTINUM:The cardiomediastinal silhouette appears normal in size and shape. BONES/SOFT TISSUES:No acute osseous injury. ABDOMEN:No free air under the diaphragm. IMPRESSION: No focal pneumonia or pulmonary edema. Signed by: Bryan Eagle MD on 04/29/2019 3:55 PM
[2019-04-29 17:45] VITALS: BP 125/71
== END 2019-04-29 17:22 | disposition home or self-care (01) ==
LOC: FSED 14:55
DX: R06.09 Other forms of dyspnea (principal); R07.89 Other chest pain; R05 Cough; J20.9 Acute bronchitis, unspecified
CPT/HCPCS: 71046; 80053; 81003; 85025; 96374; 96375; 99284; J0696; J1100; J1885; J2405; J7030

== ENCOUNTER 2019-05-03 23:01 | Emergency (ER) | payer OTHER ==
[~2019-05-03] VITALS: Ht 154.9 cm; Wt 96.6 kg
[2019-05-03] MEDS ORDERED: CEFDINIR300 MG PO (23:32)
[2019-05-03] MEDS ORDERED: PREDNISONE20 MG PO (23:32)
== END 2019-05-03 23:45 | disposition home or self-care (01) ==
LOC: FSED 23:01
DX: H66.001 Acute suppurative otitis media without spontaneous rupture of ear drum, right ear (principal); J02.9 Acute pharyngitis, unspecified; R51 Headache

== ENCOUNTER 2019-10-15 13:26 | Emergency (ER) | payer OTHER ==
[~2019-10-15] VITALS: Ht 154.9 cm; Wt 96.6 kg
[~2019-10-15 13:26] MED LIST changes: +CEFDINIR300 MG PO; +PREDNISONE20 MG PO
--- OUTSIDE RECORDS SUMMARY | 2019-10-15 14:18 | XMS REPORT | Continuity of Care Document ---
Author Author [facility] t Organization [facility] Address [address] [place] [address] Phone Unavailable Care Team Providers Care Bolt Labeler Name Role Phone NONSTAFF PCP Unavailable Dylan MATHEW Attphys Unavailable Payers Payer Name Policy Type Policy Number Effective Date Expiration Date S eugenio r Ppo [id number] 2018 00:00:00 [facility] Problems Condition Name Condition Details Condition Category Status Onset Date Resolution Date Last Treatment Date Treating Clinician Comments Source Obesity, morbid, BMI 40.0-49.9 Obesity, morbid, BMI 40.0-49.9 Active Problem 08/08/2017 [facility] Primary Problem Active 2017-08-08 02:46:12 [facility] Allergies, Adverse Reactions, Alerts Allergy Name Allergy Type Status Severity Reaction(s) Onset Date Inacti ve Date Treating Clinician Comments Source No Known Allergies DA Active U 2019-03-24 00:00:00 [facility] N.K.D.A. N.K.D.A. Active Info Not Available 2017-08-05 00:00:00 [facility] Medications Ordered Medication Name Filled Medication Name Start Date Stop Da te Current Medication? Ordering Clinician Indication Dosage Frequency Signature (SIG) Comments Components Source Cefdinir (Omnicef) 300 Mg Capsule Cefdinir (Omnicef) 300 Mg Capsule 2019-05-03 00:00:00 Yes Yg Ya 1 Every 12 Hours [facility] Prednisone 20 Mg Tab Prednisone 20 Mg Tab 2019-05-03 00:00:00 Yes Yg Ya 60 Daily as needed for Moderate Pain (4-6) [facility] Naproxen (Naprosyn) 500 Mg Tablet Naproxen (Naprosyn) 500 Mg Tablet 2018-06-18 00:00:00 Yes Carrington Anderson [facility] 1 Twice A Day [facility] Ergocalciferol 2017-08-07 00:00:00 Yes [facility] Vital Signs Vital Name Observation Time Observation Value Comments Source Weight 2017-08-05 14:45:00 [facility] Height 2017-08-05 14:45:00 [facility] Temperature Oral (F) 2017-08-05 14:45:00 97.2 F [facility] Heart Rate 2017-08-05 14:45:00 [facility] Diastolic (mm Hg) 2017-08-05 14:45:00 [facility] Systolic (mm Hg) 2017-08-05 14:45:00 [facility] Procedures This patient has no known procedures. Encounters Start Date/Time End Date/Time [facility] ID Source 2019-05-03 23:01:00 2019-05-03 23:45:00 Departed Emergency Room [facility] [id number] [facility] 2019-04-29 14:55:00 2019-04-29 17:22:00 Departed Emergency Room [address] [facility] [id number] [facility] 2019-03-23 20:37:00 2019-03-23 20:37:00 Emergency E [id number] [facility] 2018-07-23 16:14:00 2018-07-23 17:50:00 Departed Emergency Room [facility] [id number] [facility] 2018-06-27 19:30:00 2018-06-27 20:57:00 Departed Emergency Room 1 [facility] [id number] [facility] 2018-06-18 11:08:00 2018-06-18 12:15:00 Departed Emergency Room [facility] [id number] [facility] 2017-08-07 11:51:00 2017-08-07 11:51:00 Outpatient [facility] Primary Care [facility] [id number] eClinicalWo rks 2017-08-05 09:45:00 2017-08-05 09:45:00 Outpatient [facility] Primary Care [facility] [id number] eClinicalWo rks Results Test Description Test Time Test Comments Results Result Comments Source CXR 2 VIEW - HOPD 2019-04-29 15:54:00 [facility] [address] [address] Patient Name: ALEK SHEPPARD MR #: [id number] : 1985 Age/Sex: 33/F Req #: [id number] Adm Physician: Ordered by: JAMES MATHEW MD Report #: [id number] Location: [facility] Room/Bed: Procedure: [id number] HOPD/CXR 2 VIEW - HOPD Exam Date: 04/29/19 Exam Time: 1541 REPORT STATUS: Signed EXAMINATION: CXR 2 VIEW - HOPD INDICATION: Cough, shortness of breath COMPARISON: None FINDINGS: LINES/TUBES:None LUNGS:The lungs are well-inflated. No focal consolidation or pulmonary edema. PLEURA:No pleural effusion or pneumothorax. MEDIASTINUM:The cardiomediastinal silhouette appears normal in size and shape. BONES/SOFT TISSUES:No acute osseous injury. ABDOMEN:No free air under the diaphragm. IMPRESSION: No focal pneumonia or pulmonary edema. Signed by: Ramirez Eagle MD on 04/29/2019 3:55 PM Dictated By: RAMIREZ EAGLE MD 1552 Transcribed By: JONO on 04/29/19 8881 COPY TO: JAMES MATHEW MD - CT ABD PELVIS W/O CONT 2019-03-24 02:17:00 N belia: ALEK SHEPPARD [facility] : 1985 Age/S: 33 / F [address] [facility] Unit #: [id number] Loc: [place] [address] Phys: Raya Pate MD Acct: [id number] Dis Date: Status: REG ER PHONE #: [phone] Exam Date: 03/24/2019 0159 FAX #: [phone] Reason: L SIDED ABD PAIN EXAMS: CPT CODE: [id number] CT ABD PELVIS W/O CONT 49416 EXAM: - CT ABD PELVIS W/O CONT HISTORY: Left-sided pain. TECHNIQUE: Axial tomograms through the abdomen and pelvis were obtained without intravenous or enteric contrast. Coronal and sagittal reformatted images are provided. This exam was performed according to our departmental dose-optimization program, which includes automated exposure control, adjustment of the mA and/or kV according to patient size and/or use of iterative reconstruction [employer] ue. COMPARISON: None available time of interpretation. FINDINGS: The visualized lung bases are clear. The kidneys are symmetric in size and appearance bilaterally. No renal or ureteral calculi are demonstrated. There is no obstructive change. The unenhanced visualized liver, spleen, pancreas, and bilateral adrenals demonstrate no significant abnormalities. There is no fluid collection or pelvic adenopathy. The unopacified bowel is unremarkable. The appendix appears normal. IMPRESSION: No acute abnormality. at 0217 Reported and signed by: Albert Aguilar MD CC: Technologist:SIMIN NANCE RT(R),CT CTDI: DLP: Trnscb Date/Time: 03/24/2019 (216) [email or web address] Orig Print D/T: S: 03/24/2019 (1865) PAGE 1 Signed Report COMPREHENSIVE METABOLIC PANEL 2019-03-24 01:46:00 Test Item SODIUM (test code = NA) 139 mmol/L 136-145 N POTASSIUM (test code = K) 3.4 mmol/L 3.5-5.1 L CHLORIDE (test code = CL) 103 mmol/L 101-109 N CARBON DIOXIDE (test code = CO2) 30.0 mmol/L 21-32 N ANION GAP (test code = GAP) 9 mmol/L 10-20 L GLUCOSE (test code = GLU) 101 mg/dL 74-106 N BLOOD UREA NITROGEN (test code = BUN) 17 mg/dL 3-21 N CREATININE (test code = CREAT) 0.96 mg/dL 0.55-1.3 N BUN/CREATININE RATIO (test code = BUN/CREA) 17.7 10-20 N TOTAL PROTEIN (test code = PROT) 6.5 g/dL 6.5-8.4 N ALBUMIN (test code = ALB) 3.2 g/dL 3.4-4.8 L GLOBULIN (test code = GLOB) 3.3 G/DL 1-10 N ALBUMIN/GLOBULIN RATIO (test code = A/G) 0.97 RATIO 0.75-1.50 N CALCIUM (test code = CA) 8.9 mg/dL 8.4-10.2 N BILIRUBIN TOTAL (test code = BILT) 0.30 mg/dL 0.0-1.0 N SGOT/AST (test code = AST) 14 U/L 6-32 N SGPT/ALT (test code = ALT) 24 U/L 12-78 N N ote: Change in REFERENCE RANGE due to new reagent method. ALKALINE PHOSPHATASE TOTAL (test code = ALKP) 53 U/L 38-126 N HCG SERUM [id number] 01:46:00* Test Item Value Reference Range Interpretation Comments HCG SERUM QUAL (test code = HCGQL) NEGATIVE NEGATIVE This HCGQL test is NOT applicable for MALE patients.Check with nurse about probable order error.If Tumor Marker Test needed, nurse should order test "HCGTU"(Test #550.75173) COMPREHENSIVE METABOLIC [id number] 01:45:00* Test Item Value Reference Range Interpretation Comments SODIUM (test code = NA) 139 mmol/L 136-145 N POTASSIUM (test code = K) 3.4 mmol/L 3.5-5.1 L CHLORIDE (test code = CL) 103 mmol/L 101-109 N CARBON DIOXIDE (test code = CO2) 30.0 mmol/L 21-32 N ANION GAP (test code = GAP) 9 mmol/L 10-20 L GLUCOSE (test code = GLU) 101 mg/dL 74-106 N BLOOD UREA NITROGEN (test code = BUN) 17 mg/dL 3-21 N CREATININE (test code = CREAT) 0.96 mg/dL 0.55-1.3 N BUN/CREATININE RATIO (test code = BUN/CREA) 17.7 10-20 N TOTAL PROTEIN (test code = PROT) gram/dL 6.4-8.2 ALBUMIN (test code = ALB) g/dL 3.4-5.0 GLOBULIN (test code = GLOB) g/dL 2.7-4.2 ALBUMIN/GLOBULIN RATIO (test code = A/G) 0.75-1.50 CALCIUM (test code = CA) 8.9 mg/dL 8.4-10.2 N BILIRUBIN TOTAL (test code = BILT) mg/dL 0.2-1.2 SGOT/AST (test code = AST) IUnit/L 15-37 SGPT/ALT (test code = ALT) U/L 10-69 ALKALINE PHOSPHATASE TOTAL (test code = ALKP) IUnit/L 45-117 HCG SERUM [id number] 01:45:00* Test Item Value Reference Range Interpretation Comments HCG SERUM QUAL (test code = HCGQL) NEGATIVE NEGATIVE This HCGQL test is NOT applicable for MALE patients.Check with nurse about probable order error.If Tumor Marker Test needed, nurse should order test "HCGTU"(Test #550.71464) COMPREHENSIVE METABOLIC [id number] 01:41:00* Test Item Value Reference Range Interpretation Comments SODIUM (test code = NA) mmol/L 135-148 POTASSIUM (test code = K) mmol/L 3.5-5.1 CHLORIDE (test code = CL) mmol/L 101-109 CARBON DIOXIDE (test code = CO2) mmol/L 21-32 ANION GAP (test code = GAP) mmol/L 10-20 GLUCOSE (test code = GLU) mg/dL 74-106 BLOOD UREA NITROGEN (test code = BUN) mg/dL 3-21 CREATININE (test code = CREAT) mg/dL 0.55-1.3 BUN/CREATININE RATIO (test code = BUN/CREA) 10-20 TOTAL PROTEIN (test code = PROT) gram/dL 6.4-8.2 ALBUMIN (test code = ALB) g/dL 3.4-5.0 GLOBULIN (test code = GLOB) g/dL 2.7-4.2 ALBUMIN/GLOBULIN RATIO (test code = A/G) 0.75-1.50 CALCIUM (test code = CA) mg/dL 8.4-10.2 BILIRUBIN TOTAL (test code = BILT) mg/dL 0.2-1.2 SGOT/AST (test code = AST) IUnit/L 15-37 SGPT/ALT (test code = ALT) U/L 10-69 ALKALINE PHOSPHATASE TOTAL (test code = ALKP) IUnit/L 45-117 HCG SERUM [id number] 01:41:00* Test Item Value Reference Range Interpretation Comments HCG SERUM QUAL (test code = HCGQL) NEGATIVE NEGATIVE This HCGQL test is NOT applicable for MALE patients.Check with nurse about probable order error.If Tumor Marker Test needed, nurse should order test "HCGTU"(Test #550.02549) CBC W/AUTO [id number] 01:33:00* Test Item Value Reference Range Interpretation Comments WHITE BLOOD CELL (test code = WBC) 13.9 K/mm3 4.5-12.5 H RED BLOOD CELL (test code = RBC) 4.17 mill/mm3 3.7-5.2 N HEMOGLOBIN (test code = HGB) 12.6 gram/dL 11.5-15.5 N HEMATOCRIT (test code = HCT) 38.9 % 36.0-46.0 N MEAN CELL VOLUME (test code = MCV) 93.3 fL 80-98 N MEAN CELL HGB (test code = MCH) 30.2 picogram 27.0-33.0 N MEAN CELL HGB CONCETRATION (test code = MCHC) 32.4 gram/dL 33.0-36. 0 L RED CELL DISTRIBUTION WIDTH (test code = RDW) 12.9 % 11.6-16. 2 N RED CELL DISTRIBUTION WIDTH SD (test code = RDW-SD) 44.4 fL 37 .0-51.0 N PLATELET COUNT (test code = PLT) 358 K/mm3 150-450 N MEAN PLATELET VOLUME (test code = MPV) 9.0 fL 6.7-11.0 N NEUTROPHIL % (test code = NT%) 60.2 % 39.0-69.0 N LYMPHOCYTE % (test code = LY%) 29.7 % 25.0-55.0 N MONOCYTE % (test code = MO%) 6.6 % 0.0-10.0 N EOSINOPHIL % (test code = EO%) 2.9 % 0.0-5.0 N BASOPHIL % (test code = BA%) 0.3 % 0.0-1.0 N NEUTROPHIL # (test code = NT#) 8.34 K/mm3 1.8-7.7 H LYMPHOCYTE # (test code = LY#) 4.12 K/mm3 1.0-5.0 N MONOCYTE # (test code = MO#) 0.92 K/mm3 0-0.8 H EOSINOPHIL # (test code = EO#) 0.40 K/mm3 0.0-0.5 N BASOPHIL # (test code = BA#) 0.04 K/mm3 0.0-0.2 N MANUAL DIFF REQUIRED (test code = MDIFF) NO URINALYSIS [id number] 01:33:00* Test Item Value Reference Range Interpretation Comments UA COLOR (test code = COLU) YELLOW YELLOW UA APPEARANCE (test code = APPU) HAZY CLEAR A UA GLUCOSE DIPSTICK (test code = DGLUU) norm mg/dL NEGATIVE UA BILIRUBIN DIPSTICK (test code = BILU) NEGATIVE mg/dL NEGATIVE UA KETONE DIPSTICK (test code = KETU) neg mg/dL NEGATIVE UA SPECIFIC GRAVITY (test code = SGU) 1.025 1.001-1.035 UA BLOOD DIPSTICK (test code = SANDOR) 50 (2+) Shailesh/uL NEGATIVE A UA PH DIPSTICK (test code = CANDICE) 6.0 5.0-8.0 UA PROTEIN DIPSTICK (test code = PROU) 15 (TRACE) mg/dL Neg-15 A UA UROBILINIOGEN DIPSTICK (test code = URO) norm mg/dL 0.0-0.2 UA NITRITE DIPSTICK (test code = ALONDRA) NEGATIVE NEGATIVE UA LEUKOCYTE ESTERASE DIPSTICK (test code = LEUU) neg uL NEGA TIVE UA WBC (test code = WBCU) 0-5 per HPF 0-5 UA RBC (test code = RBCU) 0-2 per HPF 0-5 UA EPITHELIAL CELLS (test code = EPIU) Many (>10/hpf) per HPF Few A UA BACTERIA (test code = BACU) TRACE per HPF NONE UA MUCUS (test code = MUCU) MANY per LPF NONE-FEW A Urine Source? Clean CatchDRUGS OF ABUSE SCREEN [id number] 01:33:00* Test Item Value Reference Range Interpretation Comments URN COCAINE (test code = COCAURN) NEGATIVE NEGATIVE URN CANNABINOIDS (test code = CANNABURN) POSITIVE NEGATIVE A URN AMPHETAMINE (test code = AMPHETURN) NEGATIVE NEGATIVE URN BARBITURATE (test code = BARBITURN) NEGATIVE NEGATIVE URN BENZODIAZEPINE (test code = BENZOURN) NEGATIVE NEGATIVE URN OPIATES (test code = OPIATURN) POSITIVE NEGATIVE A URN PHENCYCLIDINE (PCP) (test code = PHENCURN) NEGATIVE NEGATIV E Urine Source? Clean CatchURINALYSIS [id number] 01:22:00* Test Item Value Reference Range Interpretation Comments UA COLOR (test code = COLU) YELLOW YELLOW UA APPEARANCE (test code = APPU) HAZY CLEAR A UA GLUCOSE DIPSTICK (test code = DGLUU) norm mg/dL NEGATIVE UA BILIRUBIN DIPSTICK (test code = BILU) NEGATIVE mg/dL NEGATIVE UA KETONE DIPSTICK (test code = KETU) neg mg/dL NEGATIVE UA SPECIFIC GRAVITY (test code = SGU) 1.025 1.001-1.035 UA BLOOD DIPSTICK (test code = SANDOR) 50 (2+) Shailesh/uL NEGATIVE A UA PH DIPSTICK (test code = CANDICE) 6.0 5.0-8.0 UA PROTEIN DIPSTICK (test code = PROU) 15 (TRACE) mg/dL Neg-15 A UA UROBILINIOGEN DIPSTICK (test code = URO) norm mg/dL 0.0-0.2 UA NITRITE DIPSTICK (test code = ALONDRA) NEGATIVE NEGATIVE UA LEUKOCYTE ESTERASE DIPSTICK (test code = LEUU) neg uL NEGA TIVE UA WBC (test code = WBCU) per HPF 0-5 UA RBC (test code = RBCU) per HPF 0-5 UA EPITHELIAL CELLS (test code = EPIU) per HPF Few UA BACTERIA (test code = BACU) per HPF NONE Urine Source? Clean CatchDRUGS OF ABUSE SCREEN [id number] 01:22:00* Test Item Value Reference Range Interpretation Comments URN COCAINE (test code = COCAURN) NEGATIVE NEGATIVE URN CANNABINOIDS (test code = CANNABURN) POSITIVE NEGATIVE A URN AMPHETAMINE (test code = AMPHETURN) NEGATIVE NEGATIVE URN BARBITURATE (test code = BARBITURN) NEGATIVE NEGATIVE URN BENZODIAZEPINE (test code = BENZOURN) NEGATIVE NEGATIVE URN OPIATES (test code = OPIATURN) POSITIVE NEGATIVE A URN PHENCYCLIDINE (PCP) (test code = PHENCURN) NEGATIVE NEGATIV E Urine Source? Clean CatchURINALYSIS [id number] 01:13:00* Test Item Value Reference Range Interpretation Comments UA COLOR (test code = COLU) YELLOW YELLOW UA APPEARANCE (test code = APPU) HAZY CLEAR A UA GLUCOSE DIPSTICK (test code = DGLUU) norm mg/dL NEGATIVE UA BILIRUBIN DIPSTICK (test code = BILU) NEGATIVE mg/dL NEGATIVE UA KETONE DIPSTICK (test code = KETU) neg mg/dL NEGATIVE UA SPECIFIC GRAVITY (test code = SGU) 1.025 1.001-1.035 UA BLOOD DIPSTICK (test code = SANDOR) 50 (2+) Shailesh/uL NEGATIVE A UA PH DIPSTICK (test code = CANDICE) 6.0 5.0-8.0 UA PROTEIN DIPSTICK (test code = PROU) 15 (TRACE) mg/dL Neg-15 A UA UROBILINIOGEN DIPSTICK (test code = URO) norm mg/dL 0.0-0.2 UA NITRITE DIPSTICK (test code = ALONDRA) NEGATIVE NEGATIVE UA LEUKOCYTE ESTERASE DIPSTICK (test code = LEUU) neg uL NEGA TIVE UA WBC (test code = WBCU) per HPF 0-5 UA RBC (test code = RBCU) per HPF 0-5 UA EPITHELIAL CELLS (test code = EPIU) per HPF Few UA BACTERIA (test code = BACU) per HPF NONE Urine Source? Clean CatchDRUGS OF ABUSE SCREEN [id number] 01:13:00* Test Item Value Reference Range Interpretation Comments URN COCAINE (test code = COCAURN) NEGATIVE URN CANNABINOIDS (test code = CANNABURN) NEGATIVE URN AMPHETAMINE (test code = AMPHETURN) NEGATIVE URN BARBITURATE (test code = BARBITURN) NEGATIVE URN BENZODIAZEPINE (test code = BENZOURN) NEGATIVE URN OPIATES (test code = OPIATURN) NEGATIVE URN PHENCYCLIDINE (PCP) (test code = PHENCURN) NEGATIV E Urine Source? Clean CatchCT BRAIN [id number] 20:44:[address] [address] Patient Name: ALEK SHEPPARD MR #: [id number] : Age/Sex: 32/F Req #: [id number] Adm Physician: Ordered by: JAMES MATHEW MD Report #: [id number] Location: [facility] Room/Bed: Procedure: [id number] HOPD/CT BRAIN WO-HOPD Exam Date: 06/27/18 Exam Time: 2019 REPORT STATUS: Signed ADDENDUM #1 I have reviewed the images and agree with kelli gordon in preliminary report. Signed by: Dr. Karen Ding M.D. on 019 9:21 PM ORIGINAL REPORT Exam: Noncontrast Head CT History: 32-year-old female with pressure in head going to neck for one week Comparison studies: None Technique: Axial images were obtained from the skull base to the vertex. Coronal and sagittal reconstructions obta ined from the axial data. Dose modulation, iterative reconstruction, and/or we ight based adjustment of the mA/kV was utilized to reduce the radiation dose to as low as reasonably achievable. Findings: Scalp/skull: No abnor malities. No fractures, blastic or lytic lesions. Extra-axial spaces: No ma sses. No fluid collections. Brain sulci: Appropriate for age. Ventricles : Normal in size and configuration. No hydrocephalus. Parenchyma: No abnorm al densities. No masses, hemorrhage, acute or chronic cortical vascular insult s. Sellar/suprasellar region: No abnormalities Craniocervical junction: P atent foramen magnum. No Chiari one malformation. IMPRESSION: No acut e abnormalities. Report dictated by neuroradiology fellow. Final read to follow. Signed by: Gary Basilio MD on 06/27/2018 8:46 PM Dictated B y: LANCE BASILIO MD 20 Transcribed By: JONO on 06/27/182045 COPY TO: RIYA MATHEW MD
--- OUTSIDE RECORDS SUMMARY | 2019-10-15 14:18 | XMS REPORT | Continuity of Care Document ---
Author Author [facility] [employer] [facility] [employer] Address Unknown Phone Unavailable Care Team Providers Care Operations Scheduler Name Role Phone [employer] Unavailable Un available Problems Problem Status Onset Date Classification Date Reported Comments Source Obesity, morbid, BMI 40.0-49.9 Active Problem [facility] Medications Medication Details Route Status Patient Instructions Ordering Provider Order Date Source Ergocalciferol 1 capsule Orally Active 03494 UNIT Orally once a week Adan 08/07/2017 [facility] Allergies, Adverse Reactions, Alerts Substance Category Reaction Severity Reaction type Status Date Reported Comments Source N.K.D.A. Adverse Reaction Info Not Available Adverse Reaction Active 08/05/2017 [facility] Immunizations No Data Provided for This Section Results No Data Provided for This Section Pathology Reports No Data Provided for This Section Diagnostic Reports No Data Provided for This Section Consultation Notes No Data Provided for This Section Discharge Summaries No Data Provided for This Section History and Physicals No Data Provided for This Section Vital Signs Vital Sign Value Date Comments Source Weight 216.2 08/05/2017 [facility] Height 61 0 08/05/2017 [facility] Temperature Oral (F) 97.2 F 08/05/2017 [facility] Heart Rate 80 08/05/2017 [facility] Diastolic (mm Hg) 77 08/05/2017 [facility] Systolic (mm Hg) 115 08/05/2017 [facility] Encounters No Data Provided for This Section Procedures No Data Provided for This Section Assessment and Plan No Data Provided for This Section Plan of Care No Data Provided for This Section Social History No Data Provided for This Section Family History No Data Provided for This Section Advance Directives No Data Provided for This Section Functional Status No Data Provided for This Section
[2019-10-15] MEDS ORDERED: PREDNISONE20 MG PO (14:30)
[2019-10-15] MEDS ORDERED: CYCLOBENZAPRINE5 MG PO (14:30)
--- NOTE | 2019-10-15 14:31 | Emergency Department Note ---
History of Present Illnes History of Present Illness Chief Complaint: rgt neck pain History of Present Illness This is a 34 year old female. was doing well until 2 weeks ago then rgt neck swelling then pain Historian: Patient Arrival Mode: Car History limited by: condition of the patient (normal) Onset (how long ago): day(s) (1) Location: rgt neck Quality: pain Radiation: Reports other (to occiput) Severity: moderate Onset quality: gradual Duration (how long): day(s) (2) Timing of current episode: constant Progression: unchanged Chronicity: new Context: Denies recent illness, Denies recent surgery, Denies recent immobilization, Denies recent travel, Denies trauma/injury, Denies new medications, Denies hx of DVT/PE, Denies non-compliance w/ medications Relieving factors: none Exacerbating factors: movement Associated symptoms: Reports denies other symptoms Treatments prior to arrival: none Past Medical/Family History Physician Review I have reviewed the patient's past medical and family history. Any updates have been documented here. Past Medical History Recent Fever: No Clinical Suspicion of Infectio: No New/Unexplained Change in Ment: No Other Medical History: LOWER BACK PAIN gastritis MAYBE ARTHRITIS OR LUPUS OR FIBROMYALGIA PT IS HAVING ONGOING TESTING Past Surgical History: Tubal Ligation, Other Surgery: Social History Smoking Cessation: Never Smoker Alcohol Use: Social Any Illegal Drug Use: No TB Exposure/Symptoms: No Physically hurt or threatened: No Family History Family history of heart diseas: No Other Last Tetanus: 09/2011 Any Pre-Existing Lines (PICC,: No Is patient up to date on immun: No Review of Systems Review of Systems Constitutional: Reports no symptoms EENTM: Reports no symptoms Cardiovascular: Reports no symptoms Respiratory: Reports no symptoms Gastrointestinal: Reports no symptoms Genitourinary: Reports no symptoms Musculoskeletal: Reports as per HPI Integumentary: Reports no symptoms Neurological: Reports no symptoms Psychological: Reports no symptoms Endocrine: Reports no symptoms Hematological/Lymphatic: Reports no symptoms Review of other systems: All other systems negative Physical Exam Related Data Allergies: Coded Allergies: No Known Allergies (Unverified , 12/24/11) Vital signs reviewed: Yes Physical Exam CONSTITUTIONAL Constitutional: Present well-developed, Present well-nourished HENT HENT: Present normocephalic, Present atraumatic, Present oropharynx clear/moist, Present nose normal HENT L/R: Present left ext ear normal, Present right ext ear normal EYES Eyes: Reports PERRL, Reports conjunctivae normal NECK Neck: Present ROM normal, Present supple, Present other (rgt muscle spasms); Absent thyromegaly, Absent tracheal deviation, Absent stridor, Absent JVD, Absent cervical adenopathy, Absent carotid bruit PULMONARY Pulmonary: Present effort normal, Present breath sounds normal CARDIOVASCULAR Cardiovascular: Present regular rhythm, Present heart sounds normal, Present capillary refill normal, Present normal rate GASTROINTESTINAL Abdominal: Present soft, Present nontender, Present bowel sounds normal GENITOURINARY Genitourinary: Present exam deferred SKIN Skin: Present warm, Present dry MUSCULOSKELETAL Musculoskeletal: Present ROM normal NEUROLOGICAL Neurological: Present alert, Present oriented x 3, Present no gross motor or sensory deficits PSYCHOLOGICAL Psychological: Present mood/affect normal, Present judgement normal Assessment & Plan Medical Decision Making MDM see below Assessment & Plan Final Impression: (1) Cervical strain, acute Depart Disposition: HOME, SEL[facility] Meds Active Scripts Cyclobenzaprine Hcl (FLEXERIL) 5 Mg Tablet, 10 MG PO Q8H PRN for MUSCLE SPASMS, #15 TAB take after prednisone to control pain if need be Prov:ZENOBIA CHANDRA 10/15/19 Prednisone (PREDNISONE) 20 Mg Tab, 60 MG PO DAILY, #15 TAB take 3 20mg pills at once Prov:ZENOBIA CHANDRA 10/15/19 Prednisone (PREDNISONE) 20 Mg Tab, 60 MG PO DAILY PRN for MODERATE PAIN (4-6) for 5 Days, #15 TAB take all 3 pills at once Prov:ZENOBIA CHANDRA 05/03/19 Cefdinir (OMNICEF) 300 Mg Capsule, 1 TAB PO Q12H for 10 Days, #20 Prov:ZENOBIA CHANDRA 05/03/19 Naproxen (NAPROSYN) 500 Mg Tablet, 1 TAB PO BID for 7 Days, #14 Prov:MARIANNA MILNER MD 06/18/18 ZENOBIA CHANDRA Oct 15, 2019 14:31
== END 2019-10-15 14:58 | disposition home or self-care (01) ==
LOC: FSED 14:02
DX: S16.1XXA Strain of muscle, fascia and tendon at neck level, initial encounter (principal); M54.5 Low back pain; X50.1XXA Overexertion from prolonged static or awkward postures, initial encounter; Y93.84 Activity, sleeping; Y92.003 Bedroom of unspecified non-institutional (private) residence as the place of occurrence of the external cause
CPT/HCPCS: 99282

== ENCOUNTER 2023-09-29 16:20 | Emergency (ER) | payer SELFPAY ==
[~2023-09-29] VITALS: Ht 154.9 cm; Wt 102.6 kg
[~2023-09-29 16:20] MED LIST changes: +CYCLOBENZAPRINE5 MG PO
[2023-09-29] MEDS ORDERED: AUGMENTIN 500-1 EACH PO (17:52)
[2023-09-29] MEDS: BACITRACIN ZINC 0.9GM TP ONE (17:54)
[2023-09-29] MEDS: ACETAMINOPHEN 325 MG TAB PO ONE (18:10)
[2023-09-29] MEDS: AMOXICILLIN/CLAVULANATE K 875 MG TAB PO STA (18:10)
[2023-09-29 18:17] VITALS: PULSE 80; RESP 16; TEMP 98.3; O2SAT 97
[2023-09-29] MEDS: TETANUS/DIPHTHERIA TOX ADULT 0.5 ML SYR IM ONE (18:17)
== END 2023-09-29 18:20 | disposition home or self-care (01) ==
LOC: FSED 16:28
DX: S60.472A Other superficial bite of right middle finger, initial encounter (principal); S60.476A Other superficial bite of right little finger, initial encounter; W54.0XXA Bitten by dog, initial encounter; Y92.89 Other specified places as the place of occurrence of the external cause; M32.9 Systemic lupus erythematosus, unspecified; M79.7 Fibromyalgia
CPT/HCPCS: 90471; 90714; 96372; 99283